=== PATIENT | female | born 2000 | race Caucasian/White ===

== ENCOUNTER 2023-03-29 09:33 | Outpatient (OUT) | payer BC, SELFPAY ==
--- NOTE | 2023-03-29 09:30 | US_ITS ---
[address] [address] Patient Name: CHRISTINE WALKER MRN: [id number] date: 2000 Sex: F Assigned Patient Location: US Current Patient Location: US Accession/Order Number: [id number] Exam Date: 03/29/2023 09:30 Report Date: 03/29/2023 18:11 At the request of: NIHARIKA MENON Procedure: US OB transvaginal EXAMINATION: US OB transvaginal HISTORY: MISSED PERIOD COMPARISON: No relevant comparison available. FINDINGS: Transvaginal images Sibley intrauterine gestation Gestational sac: 4.2 cm, 9 weeks 4 days CRL: 2.67 cm, 9 weeks 3 days Yolk sac: 5.3 mm Heart rate: 170 bpm Cervix: Closed, 4.0 cm The uterus is normal, anteverted, anteflexed The ovaries are normal. Clinical age: 9 weeks 5 days Clinical JAMES: 10/24/2019 fourth Ultrasound age: 9 weeks 3 days Ultrasound JAMES: 10/29/2023 US/US OB transvaginal IMPRESSION: Viable sibley intrauterine gestation measuring 9 weeks 3 days Electronically authenticated by: SONJA ZAFAR Date: 03/29/2023 18:11
== END 2023-03-29 09:34 | disposition home or self-care (01) ==
LOC: US 09:33
PROVIDERS: Visit Provider Obstetrics & Gynecology
DX: Z34.91 Encounter for supervision of normal pregnancy, unspecified, first trimester (principal); Z3A.09 9 weeks gestation of pregnancy; N92.6 Irregular menstruation, unspecified
CPT/HCPCS: 76817

== ENCOUNTER 2023-04-03 13:03 | Outpatient (OUT) | payer BC, SELFPAY ==
[2023-04-03 13:25] LABS: Basophils Percent Auto 0.4 % (0.2-2.0); Eosinophils Absolute Auto 0.3 10^3/uL (0.0-0.7); Eosinophils Percent Auto 3.3 % (0.9-7.0); Hematocrit 38.1 % (36.0-48.0); Hemoglobin 12.9 g/dL (12.0-16.0); Immature Granulocytes Abs Auto 0.05 10^3/uL (0.00-0.03); Immature Granulocytes Pct Auto 0.5 % (0.0-0.5); Lymphocytes Absolute Auto 1.6 10^3/uL (1.2-3.8); Lymphocytes Percent Auto 15.7 % (20.5-60.0); Mean Corpuscular HGB Conc 33.9 g/dL (29.9-35.2); Mean Corpuscular Hemoglobin 30.2 pg (26.7-34.0); Mean Corpuscular Volume 89.2 fL (81.0-99.0); Mean Platelet Volume 9.3 fL (9.5-13.5); Monocytes Absolute Auto 0.6 10^3/uL (0.3-0.8); Monocytes Percent Auto 5.7 % (1.7-12.0); Neutrophils Absolute Auto 7.5 10^3/uL (1.4-6.5); Neutrophils Percent Auto 74.4 % (43.0-75.0); Platelet Count 279 10^3/uL (150-450); Red Blood Count 4.27 10^6/uL (4.20-5.40); Red Cell Distribution Width 12.2 % (11.0-15.0)
[2023-04-03 14:02] LABS: Estimated Average Glucose 103 mg/dL; Glycohemoglobin A1C 5.2 % (4.5-6.2)
[2023-04-03 14:21] LABS: Thyroid Stimulating Hormone 0.883 uIU/mL (0.358-3.740)
[2023-04-04 06:30] LABS: Rubella Antibodies, IgG 2.74 index (Immune >0.99)
[2023-04-04 08:32] LABS: HBsAg Screen Negative (Negative); HCV Ab Non Reactive (Non Reactive); HIV Ab/p24 Ag Screen Non Reactive (Non Reactive)
[2023-04-04 11:09] LABS: Rapid Plasma Reagin, Quant Non Reactive (NonRea<1:1)
== END 2023-04-03 13:04 | disposition home or self-care (01) ==
LOC: LAB 13:04
PROVIDERS: Visit Provider Obstetrics & Gynecology
DX: N91.2 Amenorrhea, unspecified (principal)
CPT/HCPCS: 36415; 83036; 84443; 85025; 86592; 86706; 86762; 86803; 86850; 86900; 86901; 87086; 87389

== ENCOUNTER 2023-04-29 22:02 | Outpatient (REF) | payer BC, SELFPAY ==
[2023-05-03 11:09] LABS: Age Gdln ACOG Testing Note (.); IGP, rfx Aptima HPV ASCU Note (.)
== END 2023-04-29 22:03 | disposition home or self-care (01) ==
LOC: LAB 22:02
PROVIDERS: Visit Provider Obstetrics & Gynecology
DX: Z01.419 Encounter for gynecological examination (general) (routine) without abnormal findings (principal)
CPT/HCPCS: G0145

== ENCOUNTER 2023-06-10 09:05 | Outpatient (OUT) | payer BC, SELFPAY ==
--- NOTE | 2023-06-10 | US_ITS ---
[address] [address] Patient Name: CHRISTINE WALKER MRN: [id number] date: 2000 Sex: F Assigned Patient Location: US Current Patient Location: Accession/Order Number: [id number] Exam Date: 06/10/2023 09:08 Report Date: 06/10/2023 17:36 At the request of: NIHARIKA MENON Procedure: US OB anatomy EXAMINATION: US OB anatomy HISTORY: ANATOMY COMPARISON: No relevant comparison available. TECHNIQUE: Transabdominal sonographic examination was performed for obstetrical and evaluation. FINDINGS: Number: 1 Heart Rate: H.B. /min Amniotic Fluid Volume: Subjectively normal position: Cephalic presentation, longitudinal lie Placental Location: Posterior, grade 0. Placental edge 4.2 cm from the internal os Cervix Length: 3.8 cm , closed Normal anatomy: Lateral ventricles, cerebellum, posterior fossa, orbits, four-chamber heart, diaphragm, stomach, kidneys, abdominal cord insertion, bladder, umbilical arteries, three-vessel cord, spine, extremities Nonvisualization: Nose, lips, RVOT, LVOT BIOMETRY: BPD: 4.6 cm 19 weeks 5 days , 34% HC: 17.3 cm 19 weeks 6 days, 29% AC: 15.7 cm 20 weeks 6 days, 67% FL: 3.2 cm 20 weeks 0 days, 38% EFW:349.7 grams; 12 ounces, 59% FL/AC: 20.6 FL/BPD: 70.6 HC/AC: 1.1 GESTATIONAL AGE: Age by EDC: 20 weeks 1 days Age by current US: 20 weeks 1 days JAMES by current US: 10/27/2023 JAMES by EDC: 10/27/2023 US/US OB anatomy IMPRESSION: Nonvisualization as detailed above Low lying placenta *Reference: [facility] Practice Guideline for the performance of Obstetric Ultrasound Examinations, June 09, 2007. Electronically authenticated by: SONJA ZAFAR Date: 06/10/2023 17:36
--- NOTE | 2023-06-10 09:08 | US_ITS ---
[address] [address] Patient Name: CHRISTINE WALKER MRN: [id number] date: 2000 Sex: F Assigned Patient Location: US Current Patient Location: Accession/Order Number: [id number] Exam Date: 06/10/2023 09:08 Report Date: 06/10/2023 17:36 At the request of: NIHARIKA MENON Procedure: US OB cervical length EXAMINATION: US OB anatomy HISTORY: ANATOMY COMPARISON: No relevant comparison available. TECHNIQUE: Transabdominal sonographic examination was performed for obstetrical and evaluation. FINDINGS: Number: 1 Heart Rate: H.B. /min Amniotic Fluid Volume: Subjectively normal position: Cephalic presentation, longitudinal lie Placental Location: Posterior, grade 0. Placental edge 4.2 cm from the internal os Cervix Length: 3.8 cm , closed Normal anatomy: Lateral ventricles, cerebellum, posterior fossa, orbits, four-chamber heart, diaphragm, stomach, kidneys, abdominal cord insertion, bladder, umbilical arteries, three-vessel cord, spine, extremities Nonvisualization: Nose, lips, RVOT, LVOT BIOMETRY: BPD: 4.6 cm 19 weeks 5 days , 34% HC: 17.3 cm 19 weeks 6 days, 29% AC: 15.7 cm 20 weeks 6 days, 67% FL: 3.2 cm 20 weeks 0 days, 38% EFW:349.7 grams; 12 ounces, 59% FL/AC: 20.6 FL/BPD: 70.6 HC/AC: 1.1 GESTATIONAL AGE: Age by EDC: 20 weeks 1 days Age by current US: 20 weeks 1 days JAMES by current US: 10/27/2023 JAMES by EDC: 10/27/2023 US/US OB cervical length IMPRESSION: Nonvisualization as detailed above Low lying placenta *Reference: [facility] Practice Guideline for the performance of Obstetric Ultrasound Examinations, June 09, 2007. Electronically authenticated by: SONJA ZAFAR Date: 06/10/2023 17:36
== END 2023-06-10 09:06 | disposition home or self-care (01) ==
LOC: US 09:06
PROVIDERS: Visit Provider Obstetrics & Gynecology
DX: O44.42 Low lying placenta NOS or without hemorrhage, second trimester (principal); Z3A.20 20 weeks gestation of pregnancy
CPT/HCPCS: 76805; 76817

== ENCOUNTER 2023-07-08 14:25 | Outpatient (OUT) | payer BC, SELFPAY ==
--- NOTE | 2023-07-08 14:26 | US_ITS ---
[address] [address] Patient Name: CHRISTINE WALKER MRN: [id number] date: 2000 Sex: F Assigned Patient Location: US Current Patient Location: US Accession/Order Number: [id number] Exam Date: 07/08/2023 14:27 Report Date: 07/08/2023 15:36 At the request of: NIHARIKA MENON Procedure: US OB incomplete anatomy EXAM: US OB incomplete anatomy HISTORY: SUVISUALIZED RVOT, LVOT, NOSE, AND LIPS COMPARISON: Ultrasound OB anatomy 07-01 TECHNIQUE: Transabdominal ultrasound FINDINGS: Heart rate: 137 beats per minutes Presentation: Cephalic Anatomy: Four-chamber heart, RVOT, LVOT, hard palate GA: 24 weeks 1 day JAMES: 10/27/2023 US/US OB incomplete anatomy IMPRESSION: 1. Single live intrauterine . 2. Adequate visualization of the four-chamber heart, cardiac outflow tracts, and hard palate. No appreciable abnormality. Electronically authenticated by: ADDI RIOJAS Date: 07/08/2023 15:36
== END 2023-07-08 14:26 | disposition home or self-care (01) ==
LOC: US 14:25
PROVIDERS: Visit Provider Obstetrics & Gynecology
DX: Z36.2 Encounter for other antenatal screening follow-up (principal); Z3A.24 24 weeks gestation of pregnancy
CPT/HCPCS: 76815

== ENCOUNTER 2023-07-27 09:01 | Outpatient (OUT) | payer BC, SELFPAY ==
[2023-07-27 10:14] LABS: Basophils Percent Auto 0.3 % (0.2-2.0); Eosinophils Absolute Auto 0.3 10^3/uL (0.0-0.7); Eosinophils Percent Auto 2.5 % (0.9-7.0); Hematocrit 35.2 % (36.0-48.0); Hemoglobin 11.6 g/dL (12.0-16.0); Immature Granulocytes Abs Auto 0.14 10^3/uL (0.00-0.03); Immature Granulocytes Pct Auto 1.3 % (0.0-0.5); Lymphocytes Absolute Auto 1.5 10^3/uL (1.2-3.8); Lymphocytes Percent Auto 13.4 % (20.5-60.0); Mean Corpuscular Hemoglobin 31.3 pg (26.7-34.0); Mean Corpuscular Volume 94.9 fL (81.0-99.0); Mean Platelet Volume 9.1 fL (9.5-13.5); Monocytes Absolute Auto 0.6 10^3/uL (0.3-0.8); Monocytes Percent Auto 5.8 % (1.7-12.0); Neutrophils Absolute Auto 8.4 10^3/uL (1.4-6.5); Neutrophils Percent Auto 76.7 % (43.0-75.0); Platelet Count 234 10^3/uL (150-450); Red Blood Count 3.71 10^6/uL (4.20-5.40); Red Cell Distribution Width 12.7 % (11.0-15.0)
[2023-07-27 10:22] LABS: Glucose 1 Hour 113 mg/dL
== END 2023-07-27 09:02 | disposition home or self-care (01) ==
LOC: LAB 09:01
PROVIDERS: Obstetrics & Gynecology
DX: Z13.1 Encounter for screening for diabetes mellitus (principal)
CPT/HCPCS: 36415; 82950; 85025

== ENCOUNTER 2023-10-02 09:02 | Outpatient (OUT) | payer BC, SELFPAY ==
--- NOTE | 2023-10-02 09:04 | US_ITS ---
[address] [address] Patient Name: CHRISTINE WALKER MRN: [id number] date: 2000 Sex: F Assigned [facility] Accession/Order Number: [id number] Exam Date: 10/02/2023 09:04 Report Date: 10/02/2023 10:02 At the request of: NIHARIKA MENON Procedure: US OB growth EXAMINATION: US OB growth HISTORY: LGA COMPARISON: No relevant comparison available. FINDINGS: Heart Rate: 133.0 bpm Amniotic Fluid Volume: 11.2 cm Number: 1.0 Position: Cephalic presentation, longitudinal lie Maximum Vertical Pocket: 3.6 cm cm 0.0 cm cm 3.8 cm cm 3.8 cm cm BIOMETRY: BPD: 9.2 cm cm; 37 weeks 3 days; 85% HC: 32.5 cmcm; 36 weeks 5 days , 29% AC: 33.2 cm cm; 37 weeks 1 days, 80% FL: 7.1 cm cm; 36 weeks 3 days; 47.0 % % EFW: 3079.0 grams, 6 lbs. 13 oz., 60% FL/AC: 21.4 FL/BPD: 77.1 HC/AC: 1.0 GESTATIONAL AGE: Age by EDC: 36 weeks 3 days JAMES by EDC: 10/27/2023 Age by US: 37 weeks 0 days JAMES by US: 10/23/2023 Suboptimal head measurements secondary to low position of the fetus US/US OB growth IMPRESSION: Normal interval growth Electronically authenticated by: SONJA ZAFAR Date: 10/02/2023 10:02
--- OUTSIDE RECORDS SUMMARY | 2023-10-02 09:07 | XMS_ITS | CCD ---
Author Name Unknown Address [address] [place] [address] Organization [facility] Care Team Providers Care Charger Name Role Phone Jordan Anne MD Primary Care Provider RHEA HICKS Referring Unavailable JORDAN ANNE Primary Care Unavailable EDWIN ROSARIO Referring Unavailable JORDAN ANNE Primary Care Unavailable CARLOS ENRIQUE AVERY Attending Unavailable CARLOS ENRIQUE AVERY Attending Unavailable NIHARIKA MENON Attending Unavailable LYNSEYNIHARIKA NJ Attending Unavailable CARLOS ENRIQUE AVERY Attending Unavailable Problems Problem Classification Problem Date Documented Da te Episodic/Chronic Menstrual disorders (1 source) Amenorrhea, unspecified; Translations: [Amenorrhea, unspecified] Onset: 02-19-2023 Chronic Results Test Name Value Interpretation Reference Range Facil ity HCG, Quanton 02-19-2023 HCG, Quant 410 mIU/mL High <5 [facility] Comment on above: Result Comment: Non-preg premeno <=5 Postmeno <=8 Male <=3 If HCG results do not concur with clinical observations, additional testing to confirm results is recommended. Performed By: #### B HCG #### [facility] [address] [place] [address] Microbiology Lab Assistant: Hermilo Rasmussen MD Cytologyon 12-11-2022 Cytology (NOTE) INTERPRETATION Cervical material, (ThinPrep vial, Imaging-assisted review): Specimen Adequacy: Satisfactory for evaluation. - Endocervical/transform ation zone component present. Descriptive Diagnosis: Negative for intraepithelial lesion or malignancy. 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 High risk HPV DNA testing is requested if the diagnosis is abnormal GYNECOLOGIC CYTOLOGY REPORT Patient Name: CHRISTINE WALKER [facility] Rec: [id number] Path Number: [id number] [employer] [facility] [address] [place] [address] [phone] [facility] Comment on above: Performed By: #### P PPVP #### [facility] [address] [place] [address] [id number] Microbiology Lab Assistant: Jim Merida MD Encounters Encounter Date Encounter Type Care Provider Facility Start: 09-24-2023 End: 09-24-2023 ambulatory NIHARIKA LYNSEY Not Available Start: 09-10-2023 End: 09-10-2023 ambulatory CARLOS ENRIQUE GENA Not Available Start: 08-28-2023 End: 08-28-2023 ambulatory CARLOS ENRIQUE GENA Not Available Start: 08-14-2023 End: 08-14-2023 ambulatory NIHARIKA LYNSEY Not Available Start: 07-23-2023 End: 07-23-2023 ambulatory CARLOS ENRIQUE GENA Not Available Start: 02-19-2023 End: 02-20-2023 ambulatory [facility] Start: 12-11-2022 End: 12-12-2022 ambulatory EDWIN [facility] Start: 12-11-2022 Encounter for gynecological examination (general) (routine) without abnormal findings [facility] Start: 12-11-2022 End: 12-11-2022 Patient encounter procedure Jordan Anne MD Work Phone: [facility] Start: 12-11-2022 End: 12-11-2022 Subsequent hospital visit by physician Jordan Anne MD Work Phone: [facility] Comment on above: Encounter for well w aniyah exam with routine gynecological exam Plan of Treatment Date Care Activity Detail Author Start: 04-09-2023 Influenza vaccination [facility] vacc ine ([facility]ed[email or web address] Start: 2019 Screening for malign ant neoplasm of cervix Pap [email or web address] Start: 2017 DTaP/Tdap/Td vaccine (1 - Tdap) DTaP/Tdap/Td vaccine (1 - Tdap) [facility] Start: 2016 Hepatitis C screening Hepatitis C sc reen [facility] Start: 2014 Screening for Chlamy blanca trachomatis Chlamydia/GC screen [facility] Start: 2013 HIV screening HIV screen [facility] Start: 2010 Depression Screen Depression Screen [facility] Start: 2009 HPV vaccine (1 - 2-d ose series) HPV vaccine (1 - 2-dose series) [facility] Start: 1999 Varicella vaccine (1 of 2 - 2-dose childhood series) Varicella vaccine (1 of 2 - 2-dose childhood series) [facility] Start: 04-28-1999 COVID-19 Vaccine (#1) COVID-19 Vacci ne (#1) [facility] End: 12-11-2022 Cytopathology procedure, preparation of smear, genital source [facility] Routine Encounter for well woman exam with routine gynecological exam 1 Occurrences starting 12/11/2022 until 12/11/2022 [facility] Work Phone: Comment on above: 1 Occurrences starti ng 12/11/2022 until 12/11/2022 Payers Date Payer Category Payer Unknown [id number] 2000 Unknown [id number] [id number] 2000 Unknown [id number] 2.16.8 [id number] 2000 Unknown [id number] 2.16.84 [id number] 1998 Unknown [id number] 1998 Unknown [id number] [id number] 1998 Unknown [id number] 1998 Unknown [id number] Social History Date Type Detail Facility Start: 12-11-2022 Tobacco smoking stat [facility] Never smoked tobacco [employer] Phone: Start: 12-11-2022 Tobacco use and exposure Smokeless tobacco non-user [employer] Phone: Start: 12-11-2022 Alcohol intake Current drinke r of alcohol (finding) [employer] Phone: Start: 12-11-2022 History SDOH Physica l Activity DPW 5 [employer] Phone: Start: 12-11-2022 History SDOH Physica l Activity MPS 4 [employer] Phone: Start: 12-11-2022 History SDOH IPV Fear 2 [facility] [employer] Phone: Start: 12-11-2022 History SDOH Food Worry 1 [employer] Phone: Start: 12-11-2022 Alcohol Comment social [employer] Phone: Start: 2000 Sex Assigned At Not on file B ON [employer] Phone: Evaluation note Note Date & Type Note Facility Evaluation note Diagnosis Encounter for well woman exam with routine gynecological exam documented in this encounter [employer] Phone: Summary Purpose Family History No Family History Records FoundNo Family History Records Found Advance Directives No Advanced Directives Records FoundNo Advanced Directives Records Found Additional Source Comments Care Teams (unrecognized sec tion and content) Charger Relationship Specialty Start Date End Date Jordan Anne MD [address] [place] [address] PCP - General Internal Medicine 11/19/22 INFORMATION SOURCE (unrecogn ized section and content) DATE CREATED AUTHOR 02/20/2023 Emma mariscal DATE CREATED AUTHOR AUTHOR'S ZACHARY MOSQUERA 09/25/2023 [facility] dical Specialists [facility] FOR RECORDS PERTAINING TO PATIENTS WHO ARE OR HAVE BEEN ENROLLED IN A CHEMICAL DEPENDENCY/SUBSTANCEABUSE PROGRAM, SOME INFORMATION MAY BE OMITTED. This clinical summary was aggregated from multiple sources. Caution should be exercised in using it in the provision of clinical care. This summary normalizes information from multiple sources, and as a consequence, information in this document may materially change the coding, format and clinical context of patient data. In addition, data may be omitted in some cases. CLINICAL DECISIONS SHOULD BE BASED ON THE PRIMARY CLINICAL RECORDS. [employer] [facility]. provides no warranty or guarantee of the accuracy or completeness of information in this document.
== END 2023-10-02 09:03 | disposition home or self-care (01) ==
LOC: NOMS 09:03
PROVIDERS: Visit Provider Obstetrics & Gynecology
DX: Z34.93 Encounter for supervision of normal pregnancy, unspecified, third trimester (principal); O36.63X0 Maternal care for excessive fetal growth, third trimester, not applicable or unspecified; Z3A.36 36 weeks gestation of pregnancy
CPT/HCPCS: 76816; 87081

== ENCOUNTER 2023-10-02 20:14 | Outpatient (REF) | payer BC, SELFPAY ==
--- OUTSIDE RECORDS SUMMARY | 2023-10-02 20:17 | XMS_ITS | CCD ---
Author Name Unknown Address [address] [place] [address] Organization [facility] Care Team Providers Care Professional Housing Consultant Name Role Phone Jordan Anne MD Primary [...] 02-19-2023 HCG, Quant 410 mIU/mL High <5 [facility] Comment on above: Result Comment: Non-preg premeno <=5 Postmeno <=8 Male <=3 If HCG results do not concur with clinical observations, additional testing to confirm results is recommended. Performed By: #### B HCG #### [facility] [address] [place] [address] Tablet Making Machine Operator Helper: Hermilo Rasmussen MD Cytologyon 12-11-2022 Cytology (NOTE) INTERPRETATION Cervical material, (ThinPrep vial, Imaging-assisted review): Specimen Adequacy: Satisfactory for evaluation. - Endocervical/transform ation zone component present. Descriptive Diagnosis: Negative for intraepithelial lesion or malignancy. 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 High risk HPV DNA testing is requested if the diagnosis is abnormal GYNECOLOGIC CYTOLOGY REPORT Patient Name: CHRISTINE WALKER [facility] Rec: [id number] Path Number: [id number] [employer] [facility] [address] [place] [address] [phone] [facility] Comment on above: Performed By: #### P PPVP #### [facility] [address] [place] [address] [id number] Tablet Making Machine Operator Helper: Jim Merida MD Encounters Encounter Date Encounter [...] Not Available Start: 02-19-2023 End: 02-20-2023 ambulatory [facility] Start: 12-11-2022 End: 12-12-2022 ambulatory ED[facility] Start: 12-11-2022 Encounter for gynecological examination (general) (routine) without abnormal findings [facility] Start: 12-11-2022 End: 12-11-2022 Patient encounter procedure Jordan Anne MD Work Phone: [facility] Start: 12-11-2022 End: 12-11-2022 Subsequent hospital visit by physician Jordan Anne MD Work Phone: [facility] Comment on above: Encounter for well w aniyah exam with routine gynecological exam Plan of Treatment Date Care Activity Detail Author Start: 04-09-2023 Influenza vaccination [facility]: 2019 Screening for malign ant neoplasm of cervix Pap [facility] Start: 2017 DTaP/Tdap/Td vaccine (1 - Tdap) DTaP/Tdap/Td vaccine (1 - Tdap) [facility] Start: 2016 Hepatitis C screening Hepatitis C sc reen [facility] Start: 2014 Screening for Chlamy blanca trachomatis Chlamydia/GC screen [facility] Start: 2013 HIV screening HIV screen [facility] Start: 2010 Depression Screen Depression Screen [facility] Start: 2009 HPV vaccine (1 - 2-d ose series) HPV vaccine (1 - 2-dose series) [facility] Start: 1999 Varicella vaccine (1 of 2 - 2-dose childhood series) Varicella vaccine (1 of 2 - 2-dose childhood series) [facility] Start: 04-28-1999 COVID-19 Vaccine (#1) COVID-19 Vacci ne (#1) [facility] End: 12-11-2022 Cytopathology procedure, preparation of smear, genital source [facility] Routine Encounter for well woman exam with routine gynecological exam 1 Occurrences starting 12/11/2022 until 12/11/2022 [facility] Work Phone: Comment on above: 1 Occurrences starti ng 12/11/2022 until 12/11/2022 Payers Date Payer Category Payer Unknown [id number]. [id number] 2000 Unknown [id number] 2.16.8 [id number] 2000 Unknown [id number] 2.16.8 [id number] 2000 Unknown [id number] 2.16.84 [id number] 2000 Unknown [id number] 2.16.840 .[id number] 2000 Unknown [id number] 2.16.840 .[id number] 1998 Unknown [id number] 2.16.840 [id number] 1998 Unknown [id number]. [id number] Social History Date Type Detail Facility Start: 12-11-2022 Tobacco smoking stat [facility] Never smoked tobacco [employer] Phone: Start: 12-11-2022 Tobacco use and exposure Smokeless tobacco non-user [employer] Phone: Start: 12-11-2022 Alcohol intake Current drinke r of alcohol (finding) [employer] Phone: Start: 12-11-2022 History SDOH Physica l Activity DPW 5 [employer] Phone: Start: 12-11-2022 History SDOH Physica l Activity MPS 4 [employer] Phone: Start: 12-11-2022 History SDOH IPV Fear 2 B [facility] [facility] Phone: Start: 12-11-2022 History SDOH Food Worry 1 [employer] Phone: Start: 12-11-2022 Alcohol Comment social [employer] Phone: Start: 2000 Sex Assigned At Not on file B [facility] Phone: Evaluation note Note Date & Type Note Facility Evaluation note Diagnosis Encounter for well woman exam with routine gynecological exam documented in this encounter [employer] Phone: Summary Purpose Family History No Family History Records FoundNo Family History Records Found Advance Directives No Advanced Directives Records FoundNo Advanced Directives Records Found Additional Source Comments Care Teams (unrecognized sec tion and content) Professional Housing Consultant Relationship Specialty Start Date End Date Jordan Anne MD [address] [place] [address] PCP - General Internal Medicine 11/19/22 INFORMATION SOURCE (unrecogn ized section and content) DATE CREATED AUTHOR 02/20/2023 Emma mariscal DATE CREATED AUTHOR AUTHOR'S ZACHARY MOSQUERA 09/25/2023 [facility] dical Specialists [facility] FOR RECORDS PERTAINING TO PATIENTS WHO ARE [...] BE BASED ON THE PRIMARY CLINICAL RECORDS. [employer] [facility]. provides no warranty or guarantee of the accuracy or completeness of information in this document.
== END 2023-10-02 20:15 | disposition home or self-care (01) ==
LOC: LAB 20:14
PROVIDERS: Visit Provider Obstetrics & Gynecology
DX: Z34.93 Encounter for supervision of normal pregnancy, unspecified, third trimester (principal)
CPT/HCPCS: 87081

== ENCOUNTER 2023-10-26 20:44 | Inpatient (IN) | payer BC, SELFPAY ==
--- OUTSIDE RECORDS SUMMARY | 2023-10-26 20:49 | XMS_ITS | CCD ---
Author Name Unknown Address [address] [place] [address] [address] [place] [id number] Organization [facility] Care Team Providers Care Agent Broker Name Role Phone Jordan Lomax MD Primary Care Provider RHEA HICKS Referring Unavailable JORDAN LOMAX Primary Care Unavailable EDWIN ROSAROI Referring Unavailable JORDAN LOMAX Primary Care Unavailable Jordan Lomax MD Primary Care Provider CARLOS ENRIQUE AVERY Attending Unavailable CARLOS ENRIQUE AVERY Attending Unavailable RAYNE, NIHARIKA Attending Unavailable RAYNE, NIHARIKA Attending Unavailable RAYNE, NIHARIKA Attending Unavailable GENACARLOS ENRIQUE CHI Attending Unavailable RAYNE, NIHARIKA Attending Unavailable RAYNE, NIHARIKA Attending Unavailable RAYNE, NIHARIKA Attending Unavailable Medications Current Medications Medication Drug Class(es) Dates Sig (Normalized) Sig (Original) MV-Min-Fe Fum-FA-DHA ( 1 PO) (4 sources) MV-Min- Fe Fum-FA-DHA ( 1 PO) Take by mouth. 0 Active Problems Problem Classification Problem Date Documented Da te Episodic/Chronic Menstrual disorders (1 source) Amenorrhea, unspecified; Translations: [Amenorrhea, unspecified] Onset: 02-19-2023 Chronic Other and delivery including normal (4 sources) Third trimester ; Translations: [Encounter for supervision of normal , unspecified, third trimester] 10-11-2023 Episodic Results Test Name Value Interpretation Reference Range Facility Urinalysis macro (dipstick) panel (U)Ordered By: Anyi Ramirez on 10-23-2023 Bilirubin, UA Negative Negative - 4(70) +++ mg/dL [facility] Blood, UA Negative Negative - 50 Sandor/mcL [facility] Clarity, UA Clear [facility] Color, UA Yellow [facility] Glucose, UA Negative Negative - 1999(110) ++++ mg/dL [facility] Interpretation and review of laboratory results Abnormal [facility] Ketones, UA Negative Negative - 160(16) ++++ mg/dL [facility] Leukocytes, UA Negative Negative - 500+++ Davdi/mcL [facility] Nitrite, UA Negative Negative - Positive [facility] pH, UA 7.0 5 - 9 [facility] Protein, UA Positive Negative - 1999(20) ++++ mg/dL [facility] Healthcare Spec Grav, UA 1.025 1 - 1.03 [facility] Urobilinogen, UA 2.0 0.2 - 12 mg/dL [facility] Urinalysis macro (dipstick) panel (U)Ordered By: Anyi Ramirez on 10-16-2023 Bilirubin, UA Negative Negative - 4(70) +++ mg/dL [facility] Blood, UA Negative Negative - 50 Sandor/mcL [facility] Clarity, UA Clear [facility] Healthpr re Color, UA Yellow [facility]car [facility] Glucose, UA Negative Negative - 1999(110) ++++ mg/dL [facility] Interpretation and review of laboratory results Normal [facility] Ketones, UA Negative Negative - 160(16) ++++ mg/dL [facility] Leukocytes, UA Negative Negative - 500+++ David/mcL [facility] Nitrite, UA Negative Negative - Positive [facility] pH, UA 6.0 5 - 9 [facility] Protein, UA Negative Negative - 1999(20) ++++ mg/dL [facility] Spec Grav, UA 1.025 1 - 1.03 [facility] Urobilinogen, UA 0.2 0.2 - 12 mg/dL [facility] HCG, Quanton 02-19-2023 HCG, Quant 410 mIU/mL High <5 [facility] Comment on above: Result Comment: Non-preg premeno <=5 Postmeno <=8 Male <=3 If HCG results do not concur with clinical observations, additional testing to confirm results is recommended. Performed By: #### B HCG #### [facility] [address] [place] [address] Planned Giving Officer: Hermilo Rasmussen MD Cytologyon 04-04-2023 Cytology (NOTE) INTERPRETATION Cervical material, (ThinPrep vial, Imaging-assisted review): Specimen Adequacy: Satisfactory for evaluation. - Endocervical/transfor mation zone component present. Descriptive Diagnosis: Negative for intraepithelial lesion or malignancy. 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 High risk HPV DNA testing is requested if the diagnosis is abnormal GYNECOLOGIC CYTOLOGY REPORT Patient Name: RIENA OSWALD [facility] Rec: [id number] Path Number: [id number] youwho [facility] ANATOMIC PATHOLOGY [address] [place] [phone] [facility] Comment on above: Performed By: #### P PPVP #### [facility] [address] [place] [address] [id number] Planned Giving Officer: Jim Merida MD Vital Signs Date Time Vital Sign Value Performing Clinician Faci lity 10-23-2023 14:58-0500 Body mass index (BMI) [Ratio] 26.73 kg/m2 Niharika Rayne DO Work Phone: [facility] 10-23-2023 14:58-0500 Body weight 79.74 kg Niharika Aryne DO Work Phone: [facility] 10-23-2023 14:58-0500 Diastolic blood pressure 60 mm[Hg] Niharika Rayne DO Work Phone: [facility] 10-23-2023 14:58-0500 Systolic blood pressure 104 mm[Hg] Niharika Rayne DO Work Phone: [facility] 10-16-2023 15:21-0500 Body mass index (BMI) [Ratio] 26.02 kg/m2 Niharika Rayne DO Work Phone: [facility] 10-16-2023 15:21-0500 Body weight 77.62 kg Niharika Rayne DO Work Phone: [facility] 10-16-2023 15:21-0500 Diastolic blood pressure 68 mm[Hg] Niharika Rayne DO Work Phone: [facility] Healthcare 10-16-2023 15:21-0500 Systolic blood pressure 104 mm[Hg] Niharika Rayne DO Work Phone: [facility] Healthcare Encounters Encounter Date Encounter Type Care Provider Facility Start: 10-23-2023 End: 10-23-2023 ambulatory NIHARIKA RAYNE Not Available Start: 10-23-2023 End: 10-23-2023 flow sheet Niharika Rayne DO Work Phone: [facility] Comment on above: Third trimester preg melba Start: 10-16-2023 End: 10-16-2023 ambulatory NIHARIKA RAYNE Not Available Start: 10-16-2023 End: 10-16-2023 flow sheet Niharika Rayne DO Work Phone: [facility] Comment on above: Third trimester preg melba Start: 10-09-2023 End: 10-09-2023 ambulatory NIHARIKA RAYNE Not Available Start: 10-02-2023 End: 10-02-2023 ambulatory NIHARIKA RAYNE Not Available Start: 09-24-2023 End: 09-24-2023 ambulatory NIHARIKA RAYNE Not Available Start: 09-10-2023 End: 09-10-2023 ambulatory CARLOS ENRIQUE GENA Not Available Start: 08-28-2023 End: 08-28-2023 ambulatory CARLOS ENRIQUE GENA Not Available Start: 08-14-2023 End: 08-14-2023 ambulatory NIHARIKA RAYNE Not Available Start: 07-23-2023 End: 07-23-2023 ambulatory CARLOS ENRIQUE GENA Not Available Start: 02-19-2023 End: 02-20-2023 ambulatory [facility] Start: 12-11-2022 End: 12-12-2022 ambulatory EDWIN Esquivel [facility] Start: 12-11-2022 Encounter for gynecological examination (general) (routine) without abnormal findings [facility] Start: 12-11-2022 End: 12-11-2022 Patient encounter procedure Jordan Lomax MD Work Phone: [facility] Start: 12-11-2022 End: 12-11-2022 Subsequent hospital visit by physician Jordan Lomax MD Work Phone: [facility] Comment on above: Encounter for well w aniyah exam with routine gynecological exam Procedures Date Procedure Procedure Detail Performing Clinician Start: 10-23-2023 Urnls dip stick/tabl et rgnt non-auto w/o micrscp Niharika Rayne DO Work Phone: Start: 10-16-2023 Urnls dip stick/tabl et rgnt non-auto w/o micrscp Niharika Rayne DO Work Phone: Plan of Treatment Date Care Activity Detail Author Start: 10-28-2023 End: 10-28-2023 Patient encounter procedure 10/28/2023 9:00 AM EST Routine [facility] [address] [place] [id number] Niharika Mclain, DO [address] [place] [address] [facility] Start: 10-23-2023 End: 10-23-2023 Patient encounter procedure 10/23/2023 3:00 PM EST Routine [facility] [address] [facility] [place] [id number] Niharika Mclain, DO [address] [place] [address] Third trimester [facility] Comment on above: Third trimester preg melba Start: 04-09-2023 Influenza vaccination Flu vacc ine (Season Ended) [facility] Start: 2019 Screening for malign ant neoplasm of cervix Pap smear [facility] Start: 2017 DTaP/Tdap/Td vaccine (1 - Tdap) DTaP/Tdap/Td vaccine (1 - Tdap) [facility] Start: 2016 Hepatitis C screening Hepatitis C sc reen [facility] Start: 2014 Screening for Chlamy blanca trachomatis Chlamydia/GC screen [facility] Start: 2013 HIV screening HIV screen [facility] Start: 2010 Depression Screen Depression Screen [facility] Start: 2009 HPV vaccine (1 - 2-d ose series) HPV vaccine (1 - 2-dose series) [facility] Start: 1999 Varicella vaccine (1 of 2 - 2-dose childhood series) Varicella vaccine (1 of 2 - 2-dose childhood series) [facility] Start: 04-28-1999 COVID-19 Vaccine (#1) COVID-19 Vacci ne (#1) [facility] End: 12-11-2022 Cytopathology procedure, preparation of smear, genital source [facility] Routine Encounter for well woman exam with routine gynecological exam 1 Occurrences starting 12/11/2022 until 12/11/2022 [facility] Work Phone: Comment on above: 1 Occurrences starti ng 12/11/2022 until 12/11/2022 Payers Date Payer Category Payer Unknown [id number] 2015 Unknown BCBS BCBS xxxxxx [id number] 2015-Present [phone] [address] [place] [address] [id number] 1998 Unknown [id number] 1998 Unknown [id number] 1998 Unknown [id number] 1998 Unknown [id number] 1998 Unknown [id number] 1998 Unknown [id number] 1998 Unknown [id number] 1998 Unknown [id number] [id number] 1998 Unknown [id number] [id number] 1998 Unknown [id number] 1998 Unknown [id number] Social History Date Type Detail Facility Start: 12-11-2022 Tobacco smoking status NYIS Never smoked tobacco [facility] Phone: Start: 12-11-2022 Tobacco use and exposure Smokeless tobacco non-user [facility] Phone: Start: 12-11-2022 Alcohol intake Current drinke r of alcohol (finding) [facility] Phone: Start: 12-11-2022 History SDOH Physica l Activity DPW 5 [facility] Phone: Start: 12-11-2022 History SDOH Physica l Activity MPS 4 [facility] Phone: Start: 12-11-2022 History SDOH IPV Fear 2 [facility] Phone: Start: 12-11-2022 History SDOH Food Worry 1 [facility] Phone: Start: 12-11-2022 Alcohol Comment social [facility] [employer] Phone: Start: 1998 Sex Assigned At Not on file [facility] Phone: Tobacco smoking status NHIS Tobacco smoking consumption unknown [facility] Start: 02-03-2023 [facility] Gender identity Not on file [facility] History of Present illness Narrative 10-23-2023 Mey Beebe, DEB - 10/23/2023 3:00 PM EST Note Date & Type Note Facility 10-23-2023 History of Presen t illness Narrative Reason for Appointment: Patient ID: Reina Oswald is a 22 y.o. female who presents for Routine Visit Patient presents today for Return OB appointment. Current Medications: has a current medication list which includes the following prescription(s): mv-min-fe fum-fa-dha. Medical History: Active Ambulatory Problems Diagnosis Date Noted No Active Ambulatory Problems Resolved Ambulatory Problems Diagnosis Date Noted No Resolved Ambulatory Problems No Additional Past Medical History No family history on file. Social History Tobacco Use Smoking status: Not on file Smokeless tobacco: Not on file Substance Use Topics Alcohol use: Not on file Drug use: Not on file No past surgical history on file. No Known Allergies Review of Systems: Review of Systems Constitutional: Negative. HENT: Negative. Eyes: Negative. Respiratory: Negative. Cardiovascular: Negative. Gastrointestinal: Negative. Genitourinary: Negative. Musculoskeletal: Negative. Skin: Negative. Neurological: Negative. All other systems reviewed and are negative. Hematological: Negative. Endocrine: Negative. Allergic/Immunologic: Negative. Objective Physical Exam Constitutional: Appearance: Normal appearance. She is well-developed. Genitourinary: Vulva normal. Cardiovascular: Rate and Rhythm: Normal rate and regular rhythm. Pulmonary: Effort: Pulmonary effort is normal. Breath sounds: Normal breath sounds. Abdominal: General: Bowel sounds are normal. There is no distension. Palpations: Abdomen is soft. Tenderness: There is no abdominal tenderness. There is no guarding or rebound. Musculoskeletal: General: No swelling. Normal range of motion. Right lower leg: No edema. Left lower leg: No edema. Neurological: Mental Status: She is alert and oriented to person, place, and time. Skin: General: Skin is warm and dry. Psychiatric: Mood and Affect: Mood normal. Behavior: Behavior normal. Vitals and nursing note reviewed. Exam conducted with a paper colorer present. Vitals: Estimated body mass index is 26.73 kg/m as calculated from the following: Height as of 03/29/23: 5' 8 . Weight as of this encounter: 175 lb 12.8 oz. BP: 104/60 Patient's last menstrual period was 01/20/2023 (approximate). Assessment/Plan Encounter Diagnosis Name Primary? Third trimester Patient presents today for a routine obstetrics appointment. Patient is currently 39w3d . Patient states she is doing well but has complaints of being tired due to current . Patient has verbalizes frequent movement. labor precautions was discussed/given and patient was instructed to perform kick counts three times a day. Follow Up: Patient is to return to office in 1 week for routine OB appointment. Documented by eMy Beebe LPN on behalf of: Niharika Mclain DO documented in this encounter [facility] History of Present illness Narrative 10-16-2023 Mey Beebe LPN - 10/16/2023 3:00 PM EST Note Date & Type Note Facility 10-16-2023 History of Presen t illness Narrative Reason for Appointment: Patient ID: Reina Oswald is a 22 y.o. female who presents for Routine Visit Patient presents today for Return OB appointment. Current Medications: has a current medication list which includes the following prescription(s): mv-min-fe fum-fa-dha. Medical History: Active Ambulatory Problems Diagnosis Date Noted No Active Ambulatory Problems Resolved Ambulatory Problems Diagnosis Date Noted No Resolved Ambulatory Problems No Additional Past Medical History No family history on file. Social History Tobacco Use Smoking status: Not on file Smokeless tobacco: Not on file Substance Use Topics Alcohol use: Not on file Drug use: Not on file History reviewed. No pertinent surgical history. No Known Allergies Review of Systems: Review of Systems Constitutional: Negative. HENT: Negative. Eyes: Negative. Respiratory: Negative. Cardiovascular: Negative. Gastrointestinal: Negative. Genitourinary: Negative. Musculoskeletal: Negative. Skin: Negative. Neurological: Negative. All other systems reviewed and are negative. Hematological: Negative. Endocrine: Negative. Allergic/Immunologic: Negative. Objective Physical Exam Constitutional: Appearance: Normal appearance. She is well-developed. Genitourinary: Vulva normal. Cardiovascular: Rate and Rhythm: Normal rate and regular rhythm. Pulmonary: Effort: Pulmonary effort is normal. Breath sounds: Normal breath sounds. Abdominal: General: Bowel sounds are normal. There is no distension. Palpations: Abdomen is soft. Tenderness: There is no abdominal tenderness. There is no guarding or rebound. Musculoskeletal: General: No swelling. Normal range of motion. Right lower leg: No edema. Left lower leg: No edema. Neurological: Mental Status: She is alert and oriented to person, place, and time. Skin: General: Skin is warm and dry. Psychiatric: Mood and Affect: Mood normal. Behavior: Behavior normal. Vitals and nursing note reviewed. Exam conducted with a paper colorer present. Vitals: Estimated body mass index is 26.02 kg/m as calculated from the following: Height as of 03/29/23: 5' 8 . Weight as of this encounter: 171 lb 1.9 oz. BP: 104/68 Patient's last menstrual period was 01/20/2023 (approximate). Assessment/Plan Encounter Diagnosis Name Primary? Third trimester Patient presents today for a routine obstetrics appointment. Patient is currently 38w3d . Patient states she is doing well but has complaints of being tired due to current . Patient has verbalizes frequent movement. labor precautions was discussed/given and patient was instructed to perform kick counts three times a day. Follow Up: Patient is to return to office in 1 week for routine OB appointment. Documented by Mey Beebe LPN on behalf of: Niharika Mclain DO documented in this encounter [facility] Evaluation note Note Date & Type Note Facility Evaluation note Diagnosis Encounter for well woman exam with routine gynecological exam documented in this encounter [facility] Phone: Evaluation note Note Date & Type Note Facility Evaluation note Diagnosis Third trimester state, incidental Third trimester state, incidental documented in this encounter [facility] Evaluation note Note Date & Type Note Facility Evaluation note Diagnosis Third trimester state, incidental documented in this encounter [facility] Summary Purpose Family History No Family History Records FoundNo Family History Records Found Advance Directives No Advanced Directives Records FoundNo Advanced Directives Records Found Additional Source Comments Care Teams (unrecognized sec tion and content) Agent Broker Relationship Specialty Start Date End Date Jordan Lomax MD [address] [place] [id number] PCP - General Internal Medicine 11/19/22 Agent Broker Relationship Specialty Start Date End Date Jordan Lomax MD [address] [place] [id number] PCP - General Internal Medicine 03/06/23 Agent Broker Relationship Specialty Start Date End Date Jordan Lomax MD [address] [place] [id number] PCP - General Internal Medicine 03/06/23 INFORMATION SOURCE (unrecogn ized section and content) DATE CREATED AUTHOR 02/20/2023 Emma mariscal DATE CREATED AUTHOR AUTHOR'S ORGANAPOLLO ATION 10/25/2023 [facility] EPIC Reason for Visit (unrecogniz ed section and content) Reason Comments Routine Visit FOR RECORDS PERTAINING TO PATIENTS WHO ARE [...] BE BASED ON THE PRIMARY CLINICAL RECORDS. [employer] provides no warranty or guarantee of the accuracy or completeness of information in this document.
[2023-10-26 20:59] VITALS: BP 117/76; PULSE 79; TEMP 36.3
[2023-10-26 21:40] LABS: Bilirubin Urine NEGATIVE (NEGATIVE); Blood Urine MODERATE (NEGATIVE); Clarity Urine CLEAR (CLEAR); Color Urine LT. YELLOW (YELLOW); Glucose Urine UA NEGATIVE (NEGATIVE); Ketones Urine NEGATIVE (NEGATIVE); Leukocyte Esterase Urine NEGATIVE (NEGATIVE); Nitrite Urine NEGATIVE (NEGATIVE); Protein Urine NEGATIVE (NEG/TRACE); Urobilinogen Urine 0.2 EU/dL (0.2-1.0)
[2023-10-26 21:45] LABS: Amnisure POSITIVE (NEGATIVE)
[2023-10-26 21:45] LABS: Urine Microscopic Indicated YES
[2023-10-26 22:31] LABS: WBC Urine NONE SEEN #/HPF (NONE SEEN)
[2023-10-26 22:32] LABS: Bacteria Urine NONE SEEN #/HPF (NONE SEEN); Mucus Urine NONE SEEN (NONE SEEN); Squamous Epithelial Cell Urine RARE #/LPF (NONE/RARE)
[2023-10-26 22:33] LABS: Cast Seen? NONE SEEN #/LPF (NONE SEEN); Crystals Seen? None Seen #/HPF (None Seen)
[2023-10-26 22:46] LABS: Amphetamine Screen Urine NEGATIVE (NEGATIVE); Barbiturates Screen Urine NEGATIVE (NEGATIVE); Benzodiazepines Screen Urine NEGATIVE (NEGATIVE); Buprenorphine Screen Urine NEGATIVE (NEGATIVE); Cannabinoid Screen Urine NEGATIVE (NEGATIVE); Cocaine Screen Urine NEGATIVE (NEGATIVE); Methadone Screen Urine NEGATIVE (NEGATIVE); Methamphetamines Screen Urine NEGATIVE (NEGATIVE); Opiate Screen Urine NEGATIVE (NEGATIVE); Oxycodone Screen Urine NEGATIVE (NEGATIVE); Phencyclidine Screen Urine NEGATIVE (NEGATIVE); Tricyclic Antidepressant Urine NEGATIVE (NEGATIVE)
[2023-10-26 22:50] VITALS: TEMP 36.3
[2023-10-26 22:51] VITALS: BP 128/83; PULSE 77
--- NOTE | 2023-10-26 23:42 | PC.NURSE ---
[id number] Lab notified this RN via TC, amniosure is positive.
[2023-10-27] VITALS (18 sets, daily range): BP systolic 99–130; BP diastolic 55–96; PULSE 49–103; RESP 14–18; TEMP 36.1–36.7
[2023-10-27] MEDS: 0.9 % SODIUM CHLORIDE 1,000 ML 125 ML IV (03:17)
--- NOTE | 2023-10-27 04:14 | PM.OBPRCVD ---
Procedure Intrapartal events: None Induction method: none Delivery augmentation: rupture of membranes Delivery monitor: external FHT and external uterine Route of delivery: Episiotomy Description: right mediolateral L&D Laceration Description: perineal - 3rd degree Delivery repair: Vicryl Estimated blood loss (mL): 250 Anesthesia type: None Disposition: floor Delivery date: 10/27/23 Gender: female presentation: vertex Placental delivery description: Spontaneous cord description: 3 Vessels
[2023-10-27] MEDS: GLYCERIN/WITCH HAZEL PADS 1 PAD TOPICAL (04:50)
[2023-10-27] MEDS: IBUPROFEN 600 MG TABLET PO ×4 (04:52→22:41)
[2023-10-27] MEDS: LIDOCAINE HCL 1% 200 MG/20 ML MDV INJ (04:53)
--- NOTE | 2023-10-27 06:38 | PC.NURSE ---
Pt believes she ruptured on 10/26/23 @ 1830 approx. Pt reports there was only a small leak. Amniosure positive on admission. AROM forebag of yap per Dr. Mclain @ [id number] for moderate amount of brown tinged fluid
[2023-10-27 08:31] LABS: Basophils Percent Auto 0.3 % (0.2-2.0); Eosinophils Absolute Auto 0.2 10^3/uL (0.0-0.7); Eosinophils Percent Auto 1.2 % (0.9-7.0); Hematocrit 41.9 % (36.0-48.0); Hemoglobin 13.4 g/dL (12.0-16.0); Immature Granulocytes Abs Auto 0.06 10^3/uL (0.00-0.03); Immature Granulocytes Pct Auto 0.4 % (0.0-0.5); Lymphocytes Percent Auto 13.1 % (20.5-60.0); Mean Corpuscular Hemoglobin 30.8 pg (26.7-34.0); Mean Corpuscular Volume 96.3 fL (81.0-99.0); Mean Platelet Volume 10.5 fL (9.5-13.5); Monocytes Absolute Auto 0.9 10^3/uL (0.3-0.8); Neutrophils Absolute Auto 12.3 10^3/uL (1.4-6.5); Platelet Count 286 10^3/uL (150-450); Red Blood Count 4.35 10^6/uL (4.20-5.40); Red Cell Distribution Width 13.1 % (11.0-15.0); White Blood Count 15.6 10^3/uL (4.0-11.0)
[2023-10-27] MEDS: ACETAMINOPHEN 325 MG TABLET 650 MG PO ×2 (14:03→20:03)
--- NOTE | 2023-10-28 05:43 | PM.OBPN ---
OB - PN: Subj Subjective Patient comments: no complaints and pain well controlled [place] status: doing well Exam Constitutional Vital Signs, click to edit/add: Last Vital Signs Temp 97.9 F 10/27/23 23:30 Pulse 63 10/27/23 23:30 Resp 18 10/27/23 23:30 BP 100/61 10/27/23 23:30 O2 Del Method Room Air 10/27/23 23:30 Documenting provider has reviewed patient's vital signs: yes Common normals: no apparent distress Respiratory Common normals: clear to auscultation bilaterally Cardio Common normals: regular rate and regular rhythm GI Common normals: Normal to inspection, nondistended, normoactive bowel sounds present Extremity Common normals: no clubbing, cyanosis or edema and no calf tenderness Results Labs Labs: Short CBC 10/26/23 Range/Units 23:10 WBC 15.6 H (4.0-11.0) 10^3/uL Hgb 13.4 (12.0-16.0) g/dL Hct 41.9 (36.0-48.0) % Plt Count 286 (150-450) 10^3/uL OB - PN: A/P Plan - Vaginal Delivery day: 1 Plan: routine care, discharge home and follow up 6 weeks Time Spent with Patient Time: Total time spent is greater than 50% in coordination of care (as documented) at patient's floor/unit and/or counseling patient: Total time spent with greater than 50% in coordination of care (as documented) at patient's floor/unit and/or counseling patient: less than 15 minutes
[2023-10-28 06:17] LABS: Basophils Absolute Auto 0.1 10^3/uL (0.0-0.1); Basophils Percent Auto 0.3 % (0.2-2.0); Eosinophils Absolute Auto 0.2 10^3/uL (0.0-0.7); Eosinophils Percent Auto 1.5 % (0.9-7.0); Hematocrit 33.4 % (36.0-48.0); Hemoglobin 10.7 g/dL (12.0-16.0); Immature Granulocytes Abs Auto 0.09 10^3/uL (0.00-0.03); Immature Granulocytes Pct Auto 0.6 % (0.0-0.5); Lymphocytes Absolute Auto 3.4 10^3/uL (1.2-3.8); Lymphocytes Percent Auto 21.7 % (20.5-60.0); Mean Corpuscular Hemoglobin 30.6 pg (26.7-34.0); Mean Corpuscular Volume 95.4 fL (81.0-99.0); Monocytes Percent Auto 6.4 % (1.7-12.0); Neutrophils Absolute Auto 10.9 10^3/uL (1.4-6.5); Neutrophils Percent Auto 69.5 % (43.0-75.0); Platelet Count 237 10^3/uL (150-450); Red Cell Distribution Width 12.9 % (11.0-15.0); White Blood Count 15.7 10^3/uL (4.0-11.0)
[2023-10-28 09:00] VITALS: BP 104/65; PULSE 62; RESP 16; TEMP 35.8
[2023-10-28 09:02] VITALS: BP 104/65; PULSE 62; TEMP 35.8
[2023-10-28] MEDS: IBUPROFEN 600 MG TABLET PO (09:03)
[2023-10-28] MEDS: DOCUSATE SODIUM 100 MG CAPSULE PO (09:03)
== END 2023-10-28 12:55 | disposition home or self-care (01) | DRG 768 ==
PROVIDERS: Admitting Provider Obstetrics & Gynecology; Visit Provider Obstetrics & Gynecology
DX: O70.20 Third degree perineal laceration during delivery, unspecified (principal); Z37.0 Single live birth; Z3A.39 39 weeks gestation of pregnancy
CPT/HCPCS: 36415; 59050; 59410; 80307; 81001; 84112; 85025; 86850; 86900; 86901; 96374; J2590

== ENCOUNTER 2023-10-30 08:40 | Outpatient (OUT) | payer BC, SELFPAY ==
--- OUTSIDE RECORDS SUMMARY | 2023-10-30 09:03 | XMS_ITS | CCD ---
Author Name Unknown Address [address] [place] [address] [address] [place] [id number] Organization [facility] Care Team Providers Care Sewer Tapper Name Role Phone Jordan Lomax MD Primary Care Provider RHEA HICKS Referring Unavailable JORDAN LOMAX Primary Care Unavailable EDWIN ROSARIO Referring Unavailable JORDAN LOMAX Primary Care Unavailable [...] UA Negative Negative - 1999(110) ++++ mg/dL [facility] Interpretation and review of laboratory results Abnormal [facility] Ketones, UA Negative Negative - 160(16) ++++ mg/dL [facility] Leukocytes, UA Negative Negative - 500+++ David/mcL [facility] Nitrite, UA Negative Negative - Positive [facility] pH, UA 7.0 5 - 9 [facility] Protein, UA Positive Negative - 1999(20) ++++ mg/dL [facility] Spec Grav, UA 1.025 1 - 1.03 [facility] Urobilinogen, UA 2.0 0.2 - 12 mg/dL [facility] Urinalysis macro (dipstick) panel (U)Ordered By: Anyi Ramirez on 10-16-2023 Bilirubin, UA Negative Negative - 4(70) +++ mg/dL [facility] Blood, UA Negative Negative - 50 Sandor/mcL [facility] Clarity, UA Clear [facility] re Color, UA Yellow [facility] Glucose, UA Negative Negative - 1999(110) ++++ mg/dL [facility] Interpretation and review of laboratory results Normal [facility] Ketones, UA Negative Negative - 160(16) ++++ mg/dL [facility] Leukocytes, UA Negative Negative - 500+++ David/mcL [facility] Nitrite, UA Negative Negative - Positive [facility] pH, UA 6.0 5 - 9 [facility] Protein, UA Negative Negative - 1999(20) ++++ mg/dL [facility] Spec Grav, UA 1.025 1 - 1.03 [facility] Urobilinogen, UA 0.2 0.2 - 12 mg/dL [facility] HCG, Quanton 02-19-2023 HCG, Quant 410 mIU/mL High <5 [facility] Comment on above: Result Comment: Non-preg premeno <=5 Postmeno <=8 Male <=3 If HCG results do not concur with clinical observations, additional testing to confirm results is recommended. Performed By: #### B HCG #### [facility] [address] [place] [address] Veteran Appeals Reviewer: Hermilo Rasmussen MD Cytologyon 04-04-2023 Cytology (NOTE) INTERPRETATION Cervical material, (ThinPrep vial, Imaging-assisted review): Specimen Adequacy: Satisfactory for evaluation. - Endocervical/transfor mation zone component present. Descriptive Diagnosis: Negative for intraepithelial lesion or malignancy. 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 High risk HPV DNA testing is requested if the diagnosis is abnormal GYNECOLOGIC CYTOLOGY REPORT Patient Name: REINA OSWALD [facility] Rec: [id number] Path Number: [id number] [facility] ANATOMIC PATHOLOGY [address] [place] [phone] [facility] Comment on above: Performed By: #### P PPVP #### [employer] [facility] [address] [id number] [employer] Appeals Reviewer: Jim Merida MD Vital Signs Date Time Vital Sign Value Performing Clinician Faci lity 10-23-2023 14:58-0500 Body mass index (BMI) [Ratio] 26.73 kg/m2 Niharika Rayne DO Work Phone: [facility] 10-23-2023 14:58-0500 Body weight 79.74 kg Niharika Rayne DO Work Phone: [facility] 10-23-2023 14:58-0500 Diastolic blood pressure 60 mm[Hg] Niharika Rayne DO Work Phone: [facility] 10-23-2023 14:58-0500 Systolic blood pressure 104 mm[Hg] Niharika Rayne DO Work Phone: [facility] 10-16-2023 15:21-0500 Body mass index (BMI) [Ratio] 26.02 kg/m2 Niharika Rayne DO Work Phone: [facility] 10-16-2023 15:21-0500 Body weight 77.62 kg Niharika Rayne DO Work Phone: [facility] 10-16-2023 15:21-0500 Diastolic blood pressure 68 mm[Hg] Niharika Rayne DO Work Phone: [facility] 10-16-2023 15:21-0500 Systolic blood pressure 104 mm[Hg] Niharika Rayne DO Work Phone: [facility] Encounters Encounter Date Encounter Type Care Provider Facility Start: 10-23-2023 End: 10-23-2023 ambulatory NIHARIKA RAYNE Not Available Start: 10-23-2023 End: 10-23-2023 flow sheet Niharika Rayne DO Work Phone: [facility] Comment on above: Third trimester preg melba Start: 10-16-2023 End: 10-16-2023 ambulatory NIHARIKA RAYNE Not Available Start: 10-16-2023 End: 10-16-2023 flow sheet Niharika Rayne DO Work Phone: [facility] Comment on above: Third [...] Not Available Start: 02-19-2023 End: 02-20-2023 ambulatory [facility] Start: 12-11-2022 End: 12-12-2022 ambulatory EDWIN Esquivel [facility] Start: 12-11-2022 Encounter for gynecological examination (general) (routine) without abnormal findings [facility] Start: 12-11-2022 End: 12-11-2022 Patient [...] [facility] [address] [place] [phone] Niharika Mclain, DO [address] [place] [address] [facility] Start: 10-23-2023 End: 10-23-2023 Patient encounter procedure 10/23/2023 3:00 PM EST Routine [facility] [address] [facility] [phone] Niharika Mclain, DO [address] [place] [address] Third trimester [facility] Comment on above: Third trimester preg melba Start: 04-09-2023 Influenza vaccination Flu vacc ine (Season Ended) [facility] Start: 2019 Screening for malign ant neoplasm of cervix Pap smear [facility] Start: 2017 DTaP/Tdap/Td vaccine (1 - Tdap) DTaP/Tdap/Td vaccine (1 - Tdap) [facility] Start: 2016 Hepatitis C screening Hepatitis C sc reen [facility] Start: 2014 Screening for Chlamy blanca trachomatis Chlamydia/GC screen [facility] Start: 2013 HIV screening HIV screen [facility] Start: 2010 Depression Screen Depression Screen [facility] Start: 2009 HPV vaccine (1 - 2-d ose series) HPV vaccine (1 - 2-dose series) [facility] Start: 1999 Varicella vaccine (1 of 2 - 2-dose childhood series) Varicella vaccine (1 of 2 - 2-dose childhood series) [facility] Start: 04-28-1999 COVID-19 Vaccine (#1) COVID-19 Vacci ne (#1) [facility] End: 12-11-2022 Cytopathology procedure, preparation of smear, genital source [facility] Routine Encounter for well woman exam with routine gynecological exam 1 Occurrences starting 12/11/2022 until 12/11/2022 [facility] Work Phone: Comment on above: 1 Occurrences starti ng 12/11/2022 until 12/11/2022 Payers Date Payer Category Payer Unknown [id number] 2015 Unknown BCBS BCBS xxxxxx [id number] 2015-Present [phone] [address] [place] [address] [id number] 1998 Unknown [id number] [id number] 1998 Unknown [id number] [id number] 1998 Unknown [id number] 2.16.840.1.545096.3.579.2.9 1998 Unknown [id number] 2.16.840.1.208429.3.579.2.9 1998 Unknown [id number] 2.16.840.1.963390.3.579.2.9 1998 Unknown [id number] 2.16.840.1.041074.3.579.2.9 1998 Unknown [id number] 2.16.840.1.718196.3.579.2.9 1998 Unknown [id number] 2.16.840.1.627295.3.579.2.9 1998 Unknown [id number] 2.16.840.1.358126.3.579.2.9 1998 Unknown [id number] [id number] 1998 Unknown [id number] [id number] Social History Date Type Detail Facility Start: 12-11-2022 Tobacco smoking status FL[facility] Never smoked tobacco [facility] Phone: Start: 12-11-2022 Tobacco use and exposure Smokeless tobacco non-user [facility] Phone: Start: 12-11-2022 Alcohol intake Current drinke r of alcohol (finding) [facility] Phone: Start: 12-11-2022 History SDOH Physica l Activity DPW 5 [facility] Phone: Start: 12-11-2022 History SDOH Physica l Activity MPS 4 [facility] Phone: Start: 12-11-2022 History SDOH IPV Fear 2 [facility] Phone: Start: 12-11-2022 History SDOH Food Worry 1 [facility] Phone: Start: 12-11-2022 Alcohol Comment social [facility] [employer] Phone: Start: 1998 Sex Assigned At Not on file [facility] Phone: Tobacco smoking status NHIS Tobacco smoking [...] nursing note reviewed. Exam conducted with a research attorney present. Vitals: Estimated body mass index is [...] nursing note reviewed. Exam conducted with a research attorney present. Vitals: Estimated body mass index is [...] routine gynecological exam documented in this encounter [facility] Phone: Evaluation note Note Date & Type [...] Care Teams (unrecognized sec tion and content) Sewer Tapper Relationship Specialty Start Date End Date Jordan Lomax MD [address] [place] [address] PCP - General Internal Medicine 11/19/22 Sewer Tapper Relationship Specialty Start Date End Date Jordan Lomax MD [address] [place] [address] PCP - General Internal Medicine 03/06/23 Sewer Tapper Relationship Specialty Start Date End Date Jordan Lomax MD [address] [place] [address] PCP - General Internal Medicine 03/06/23 INFORMATION SOURCE (unrecogn ized section and content) DATE CREATED AUTHOR 02/20/2023 Emma mariscal DATE CREATED AUTHOR AUTHOR'S ORGANAPOLLO ATION 10/25/2023 [facility] dical Specialists EPIC Reason for Visit (unrecogniz [...] BE BASED ON THE PRIMARY CLINICAL RECORDS. [facility]. provides no warranty or guarantee of the accuracy or completeness of information in this document.
--- NOTE | 2023-10-30 16:32 | PC.NURSE ---
Bowen Huang and 3 day old [place] arrive for follow up visit. Parents state has settled well at home. Nurses every 2 hours during the day and every 3 hours at night. Latching did become more difficult today as milk coming in and breast firm and tender. Reina states has nipples that do not pull out too much and now right side is hard to latch onto. Reina assessed and VSS and Assessment WNL. Using Motrin for perineal discomfort as well as Dermoplast and tucks/witch flori pads. Slight ankle edema noted with pitting. Encouraged to increase PO fluids and left sided rest. Rosana examined today by PCP Dr Hood. Assessment now WNL and VSS. Weight same as discharge weight. Parents report 4-5 wets and 5 green to yellow stools in last 24 hours. Mom shown to use laid back nursing for easier latching during engorgement and baby responded well with 20 min feeding on right breast. Parents pleased with information and verbalized understanding. Aware to call for questions or concerns and of [facility] group for support. involved and very supportive with Reina. Family leaves ambulatory without concerns.
[2023-10-30 16:34] VITALS: BP 108/67; PULSE 71; RESP 16; TEMP 36.7; O2SAT 97
== END 2023-10-30 15:30 | disposition home or self-care (01) ==
LOC: FBCO 08:54
PROVIDERS: Visit Provider Obstetrics & Gynecology
DX: Z39.2 Encounter for routine postpartum follow-up (principal)

== ENCOUNTER 2025-05-04 15:21 | Outpatient (OUT) | payer BC, SELFPAY ==
[2025-05-04 16:00] LABS: Anion Gap 12.7; Blood Urea Nitrogen 21.0 mg/dL (7.0-18.0); Calcium 9.0 mg/dL (8.5-10.1); Carbon Dioxide 27.6 mmol/L (21.0-32.0); Chloride 103 mmol/L (98-107); Estimated GFR (African America >60 (>=60 mL/min/1.73m^2); Estimated GFR (Non-African Ame >60 (>=60 mL/min/1.73m^2); Glucose 96 mg/dL (74-106); Potassium 4.3 mmol/L (3.5-5.1); Sodium 139 mmol/L (136-145)
--- OUTSIDE RECORDS SUMMARY | 2025-05-04 16:39 | XMS_ITS | CCD ---
Author Organization [facility] Care Team Providers Care Public Transportation Inspector Name Role Phone Jordan Anne MD Primary Care Provider RHEA HICKS Referring Unavailable JORDAN ANNE Primary Care Unavailable EDWIN ROSARIO Referring Unavailable JORDAN ANNE Primary Care Unavailable Jordan Anne MD Primary Care Provider CARLOS ENRIQUE AVERY Attending Unavailable CARLOS ENRIQUE AVERY Attending Unavailable RAYNE, NIHARIKA Attending Unavailable RAYNE, NIHARIKA Attending Unavailable RAYNE, NIHARIKA Attending Unavailable RAYNE, NIHARIKA Attending Unavailable RAYNE, NIHARIKA Attending Unavailable CARLOS ENRIQUE AVERY Attending Unavailable RAYNE, NIHARIKA Attending Unavailable CARLOS ENIRQUE AVERY Attending Unavailable Medications Current Medications Medication Drug [...] [facility] Glucose, UA Negative Negative - 2000(110) ++++ mg/dL [facility] Interpretation and review of laboratory results Abnormal [facility] Ketones, UA Negative Negative - 160(16) ++++ mg/dL [facility] Leukocytes, UA Negative Negative - 500+++ David/mcL [facility] Nitrite, UA Negative Negative - Positive [facility] pH, UA 7.0 5 - 9 [facility] Protein, UA Positive Negative - 1999(20) ++++ mg/dL [facility] Spec Grav, UA 1.025 1 - 1.03 [facility] Urobilinogen, UA 2.0 0.2 - 12 [facility]/dL [facility] Urinalysis macro (dipstick) panel (U)Ordered By: Anyi Ramirez on 10-16-2023 Bilirubin, UA Negative Negative - 4(70) +++ mg/dL [facility] Blood, UA Negative Negative - 50 Sandor/mcL [facility] Clarity, UA Clear [facility] Color, UA Yellow [facility] Glucose, UA Negative Negative - 1999(110) ++++ mg/dL [facility] Interpretation and review of laboratory results Normal [facility] Ketones, UA Negative Negative - 160(16) ++++ mg/dL [facility] Leukocytes, UA Negative Negative - 500+++ David/mcL [facility] Nitrite, UA Negative Negative - Positive [facility] pH, UA 6.0 5 - 9 [facility] Health[facility] e Protein, UA Negative Negative - 1999(20) ++++ mg/dL [facility] Spec Grav, UA 1.025 1 - 1.03 [facility] Urobilinogen, UA 0.2 0.2 - 12 mg/dL [facility] HCG, Quanton 02-19-2023 HCG, Quant 410 mIU/mL High <5 [facility] Comment on above: Result Comment: Non-preg premeno <=5 Postmeno <=8 Male <=3 If HCG results do not concur with clinical observations, additional testing to confirm results is recommended. Performed By: #### B HCG #### [facility] [address] [place] [address] Career Development Facilitator: Hermilo Rasmussen MD Cytologyon 12-11-2022 Cytology (NOTE) INTERPRETATION Cervical material, (ThinPrep vial, Imaging-assisted review): Specimen Adequacy: Satisfactory for evaluation. - Endocervical/transfor mation zone component present. Descriptive Diagnosis: Negative for intraepithelial lesion or malignancy. 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 High risk HPV DNA testing is requested if the diagnosis is abnormal GYNECOLOGIC CYTOLOGY REPORT Patient Name: REINA OSWALD [facility] Rec: [id number] Path Number: [id number] [facility] ANATOMIC PATHOLOGY [address] [place] [phone] [facility] Comment on above: Performed By: #### P PPVP #### [facility] [id number] Career Development Facilitator: Jim Merida MD Vital Signs Date Time Vital Sign Value Performing Clinician Faci lit 10-23-2023 14:58-0500 Body mass index (BMI) [Ratio] 26.73 kg/m2 Niharika Rayne DO Work Phone: [facility] 10-23-2023 14:58-0500 Body weight 79.74 kg Niharika Rayne DO Work Phone: [facility] 10-23-2023 14:58-0500 Diastolic blood pressure 60 mm[Hg] Niharika Rayne DO Work Phone: [facility] 10-23-2023 14:58-0500 Systolic blood pressure 104 mm[Hg] Niharika Rayne DO Work Phone: [facility] 10-16-2023 15:21-0500 Body mass index (BMI) [Ratio] 26.02 kg/m2 Niharika Rayne DO Work Phone: [facility] 10-16-2023 15:21-0500 Body weight 77.62 kg Niharika Rayne DO Work Phone: [facility] 10-16-2023 15:21-0500 Diastolic blood pressure 68 mm[Hg] Niharika Rayne DO Work Phone: [facility] 10-16-2023 15:21-0500 Systolic blood pressure 104 mm[Hg] Niharika Rayne DO Work Phone: [facility] Healthcare Encounters Encounter Date Encounter Type Care Provider Facility Start: 12-09-2023 End: 12-09-2023 ambulatory CARLOS ENRIQUE GENA Not Available Start: 10-23-2023 End: 10-23-2023 ambulatory NIHARIKA RAYNE Not Available Start: 10-23-2023 End: 10-23-2023 flow sheet Niharika Rayne DO Work Phone: [facility] Comment on above: Third trimester preg melba Start: 10-16-2023 End: 10-16-2023 ambulatory NIHARIKA RAYNE Not Available Start: 10-16-2023 End: 10-16-2023 flow sheet Niharika Rayne DO Work Phone: [facility] Comment on above: Third trimester [...] Not Available Start: 02-19-2023 End: 02-20-2023 ambulatory [facility] Start: 12-11-2022 End: 12-12-2022 ambulatory EDWIN Esquivel [facility] Start: 12-11-2022 Encounter for gynecological examination (general) (routine) without abnormal findings [facility] Start: 12-11-2022 End: 12-11-2022 Patient encounter procedure Jordan Anne MD Work Phone: [email or web address] Start: 12-11-2022 [...] [facility] [address] [place] [phone] Niharika Mclain, DO [address] [place] [address] [facility] Start: 10-23-2023 End: 10-23-2023 Patient encounter procedure 10/23/2023 3:00 PM EST Routine [facility] [address] [facility] [address] Niharika Mclain, DO [address] [place] [address] Third trimester [facility] Comment on above: Third trimester preg melba Start: 04-09-2023 Influenza vaccination Flu vacc ine (Season Ended) [facility] Start: 2019 Screening for malign ant neoplasm of cervix Pap smear [facility] Start: 2017 DTaP/Tdap/Td vaccine (1 - Tdap) DTaP/Tdap/Td vaccine (1 - Tdap) [facility] Start: 2016 Hepatitis C screening Hepatitis C sc reen [facility] Start: 2014 Screening for Chlamy blanca trachomatis Chlamydia/GC screen [facility] Start: 2013 HIV screening HIV screen [facility] Start: 2010 Depression Screen Depression Screen [facility] Start: 2009 HPV vaccine (1 - 2-d ose series) HPV vaccine (1 - 2-dose series) [facility] Start: 1999 Varicella vaccine (1 of 2 - 2-dose childhood series) Varicella vaccine (1 of 2 - 2-dose childhood series) [facility] Start: 04-28-1999 COVID-19 Vaccine (#1) COVID-19 Vacci ne (#1) [facility] End: 12-11-2022 Cytopathology procedure, preparation of smear, genital source [facility] Routine Encounter for well woman exam with routine gynecological exam 1 Occurrences starting 12/11/2022 until 12/11/2022 [facility] Work Phone: Comment on above: 1 Occurrences starti ng 12/11/2022 until 12/11/2022 Payers Date Payer Category Payer Unknown [id number] 2015 Unknown BCBS BCBS xxxxxx [id number] 2015-Present [phone] [address] [place] [address] [id number] 1998 Unknown [id number] [id number] 1998 Unknown [id number] [id number] 1998 Unknown [id number] 2.16.840.1.834147.3.579.2.9 1998 Unknown [id number] 2.16.840.1.120512.3.579.2.9 1998 Unknown [id number] 2.16.840.1.050073.3.579.2.9 1998 Unknown [id number] 2.16.840.1.136512.3.579.2.9 1998 Unknown [id number] 2.16.840.1.001140.3.579.2.9 1998 Unknown [id number] 2.16.840.1.903810.3.579.2.9 1998 Unknown [id number] 2.16.840.1.783973.3.579.2.9 1998 Unknown [id number] 2.16.840.1.669214.3.579.2.9 1998 Unknown [id number] 2.16.840.1.912008.3.579.2.9 1998 Unknown [id number] [id number] Social History Date Type Detail Facility Start: 12-11-2022 Tobacco smoking status [facility] Never smoked tobacco [facility] Phone: Start: 12-11-2022 Tobacco use and exposure Smokeless tobacco non-user [employer] Phone: Start: 12-11-2022 Alcohol intake Current drinke r of alcohol (finding) [facility] Phone: Start: 12-11-2022 History SDOH Physica l Activity DPW 5 [facility] Phone: Start: 12-11-2022 History SDOH Physica l Activity MPS 4 [facility] Phone: Start: 12-11-2022 History SDOH IPV Fear 2 [facility] [employer] Phone: Start: 12-11-2022 History SDOH Food Worry 1 [facility] [employer] Phone: Start: 12-11-2022 Alcohol Comment social [facility] [employer] Phone: Start: 1998 Sex Assigned At Not on file [facility] [employer] Phone: Tobacco smoking status NHIS Tobacco smoking consumption unknown [facility] Start: 02-03-2023 [facility] Gender identity Not on file [facility] History of Present illness Narrative 10-23-2023 Mey Beebe, INDUSTRIAL REGISTERED NURSE - 10/23/2023 3:00 PM EST Note Date [...] nursing note reviewed. Exam conducted with a speech communication professor present. Vitals: Estimated body mass index is [...] nursing note reviewed. Exam conducted with a speech communication professor present. Vitals: Estimated body mass index is [...] routine gynecological exam documented in this encounter [employer] Phone: Evaluation note Note Date & Type [...] Care Teams (unrecognized sec tion and content) Public Transportation Inspector Relationship Specialty Start Date End Date Jordan Anne MD [address] [place] [id number] PCP - General Internal Medicine 11/19/22 Public Transportation Inspector Relationship Specialty Start Date End Date Jordan Anne MD [address] [place] [id number] PCP - General Internal Medicine 03/06/23 Public Transportation Inspector Relationship Specialty Start Date End Date Jordan Anne MD [address] [place] [address] PCP - General Internal Medicine 03/06/23 INFORMATION SOURCE (unrecogn ized section and content) DATE CREATED AUTHOR 02/20/2023 Emma mariscal DATE CREATED AUTHOR AUTHOR'S ORGANIZ ATION 12/09/2023 [facility] dical Specialists EPIC Reason for Visit [...] BE BASED ON THE PRIMARY CLINICAL RECORDS. [facility] [employer] [facility]. provides no warranty or guarantee of the accuracy or completeness of information in this document.
== END 2025-05-04 15:22 | disposition home or self-care (01) ==
LOC: LAB 15:22
PROVIDERS: PCP Family Medicine; Visit Provider Family Medicine
DX: R79.9 Abnormal finding of blood chemistry, unspecified (principal)
CPT/HCPCS: 36415; 80048

== ENCOUNTER 2025-07-22 16:02 | Outpatient (OUT) | payer OTHER, SELFPAY ==
--- OUTSIDE RECORDS SUMMARY | 2025-07-15 09:40 | XMS_ITS | Encounter Summary ---
Author Organization [facility] Address [address] [place] [address] Care Team Providers Care Abrasive Grinder Name Role Phone Jordan Lomax MD Primary Care Provider [phone] Reason for Visit * ReasonCommentsRoutine Visit Encounter Details DateTypeDepartmentCare Team (Latest Contact Info)Humdgpednnz49/06/2025 9:40 AM ESTRoutine [facility] [address] [address] Mehdi Mclain DO [address] [place] [address] First trimester ([facility]); 10 weeks gestation of ([facility]) Social History Tobacco UseTypesPacks/DayYears UsedDateSmoking Tobacco: Never Assessed Estimated Date of PtbgilmnXvvazcrdYod48/30/2026ased on last menstrual period of 05/01/2025Sex and Gender InformationValueDate RecordedSex Assigned at BirthNot on fileLegal XjtElufiq31/28/2023 2:17 PM EDTGender IdentityNot on fileSexual OrientationNot on filedocumented as of this encounter Last Filed Vital Signs Vital SignReadingTime TakenCommentsBlood Xrgyfjuo211/7407/15/2025 9:45 AM EST Pulse--Temperature--Respiratory Rate--Oxygen Saturation--Inhaled Oxygen Concentration--Pnlnrn19 kg (141 lb)07/15/2025 9:45 AM ESTHeight--Body Mass Index 21.4407 11:04 AM EDTdocumented in this encounter Progress Notes * Preeti Spitler, ATOMIC FUEL ASSEMBLER - 07/15/2025 9:40 AM EST Reason for Appointment: Patient ID: Reina Oswald is a 24 y.o. female who presents for Routine Visit Patient presents today for Return OB appointment.. MEDICATIONS Current Outpatient Medications Medication Instructions MV-Min-Fe Fum-FA-DHA ( 1 PO) Oral ALLERGIES No Known Allergies PROBLEMS Active Ambulatory Problems Diagnosis Date Noted No Active Ambulatory Problems Resolved Ambulatory Problems Diagnosis Date Noted No Resolved Ambulatory Problems No Additional Past Medical History HISTORY PAST MEDICAL HISTORY SOCIAL HISTORY No past medical history on file. Social History Tobacco Use Smoking status: Not on file Smokeless tobacco: Not on file Substance Use Topics Alcohol use: Not on file Drug use: Not on file FAMILY HISTORY No family history on file. SURGICAL HISTORY No past surgical history on file. REVIEW OF SYSTEMS Review of Systems: Review of Systems Constitutional: Negative. HENT: Negative. Eyes: Negative. Respiratory: Negative. Cardiovascular: Negative. Gastrointestinal: Negative. Genitourinary: Negative. Musculoskeletal: Negative. Skin: Negative. Neurological: Negative. All other systems reviewed and are negative. Hematological: Negative. Endocrine: Negative. Allergic/Immunologic: Negative. OBJECTIVE Objective: Physical Exam Constitutional: Appearance: Normal appearance. She is well-developed. Cardiovascular: Rate and Rhythm: Normal rate and [...] nursing note reviewed. Exam conducted with a golf club facer present. Vitals: Estimated body mass index is 21.44 kg/m?? as calculated from the following: Height as of 03/29/23: 5' 8 . Weight as of this encounter: 141 lb. BP: 110/74 Patient's last menstrual period was 05/01/2025. Assessment/Plan ICD-10-CM 1. First trimester ([facility]) Z34.91 POCT urinalysis dipstick manually resulted 2. 10 weeks gestation of ([facility]) Z3A.10 New OB: Patient presents today for 1st time obstetrics appointment with provider. Patient is currently 10w5d . Patients history has been reviewed in great detail including any potential risks. Patient stated she currently has no complaints. Expectations throughout regarding labs, ultrasounds, and appointments have been discussed with the patient in detail. It was reiterated that the patient is to drink 6-8 glasses of water a day, eat 6 small meals a day, do not consume raw or undercooked meat, and stay away from [facility]. Patient has been consulted regarding any further do's and don'tsof . Patient voiced understanding and all questions and concerns were answered. Discussed recent symptoms of fever, heart rate and not feeling well. Patient voiced that now she isjust tired when she gets home. Orders Placed This Encounter Procedures POCT urinalysis dipstick manually resulted Follow Up: Patient is to return in 4 weeks for routine OB appointment. Documented by Preeti Mcdonough LPN on behalf of: Mehdi Mclain DO documented in this encounter Plan of Treatment DateTypeDepartmentCare Team (Latest Contact Info)Koyvshmeufq66/19/2025 2:40 PM ESTRoutine [facility] [address] [phone] Mehdi Mclain DO [address] [place] [address] documented as of this encounter Procedures Procedure NamePriorityDate/TimeAssociated DiagnosisCommentsPOCT URINALYSIS MEOKEIBUCwidppi29/06/2025 9:51 AM EST First trimester ([facility]) documented in this encounter Results * (ABNORMAL) POCT urinalysis dipstick manually resulted (07/15/2025 9:51 AM EST)ComponentValueRef RangeTest MethodAnalysis TimePerformed AtPathologist SignatureColor, PamellaClarity, UAClearGlucose, UANegativeNegative - 1999(110) ++++ mg/dLBilirubin, UANegativeNegative - 4(70) +++ mg/dLKetones, UA NegativeNegative - 160(16) ++++ mg/dLSpec Grav, UA1.0301 - 1.03Blood, UA NegativeNegative - 50 Sandor/mcLpH, UA6.05 - 9Protein, UAPositiveNegative - 2000(20) ++++ mg/dLComment:TraceUrobilinogen, UA0.20.2 - 12 mg/dLLeukocytes, UAPositiveNegative - 500+++ David/mcLComment:1+Nitrite, UANegativeNegative - PositiveSpecimen (Source)Anatomical Location / LateralityCollection Method / VolumeCollection TimeReceived SmteYvtbk29/06/2025 9:51 AM EST Narrative Authorizing ProviderResult TypeResult StatusCorey Rayne DOPOINT OF CARE TEST ENTER/EDIT ORDERABLESFinal Result documented in this encounter Visit Diagnoses Diagnosis First trimester ([facility]) state, incidental 10 weeks gestation of ([facility]) documented in this encounter Care Teams Team MemberRelationshipSpecialtyStart DateEnd Date Jordan Lomax MD [address] [place] [address] PCP - GeneralInternal Medicine03/06/23documented as of this encounter
--- OUTSIDE RECORDS SUMMARY | 2025-07-17 19:08 | XMS_ITS | Continuity of Care Document ---
Author Organization [facility] Address [address] [place] [address] Phone Care Team Providers Care Data Developer Name Role Phone Joce Louis MD Primary Care Provider Dulce Leigh APRN Attending Provider Care Teams Visit Care Team Team Status: Inactive Member Role/Relationship Status Dates Joce Louis MD Primary Care Provider Active Start: July 17, 2025 End: July 17, 2025Kiki Cerda ProviderActiveStart: July 17, 2025 End: July 17, 2025 Patient Care Team Team Status: Inactive Member Role/Relationship Status Dates Dulce Leigh APRN Attending Provider Active Start: July 17, 2025 End: July 17, 2025 Chief Complaint and Reason for Visit Chief Complaint Admit Date Poss uti July 17, 2025 1 1:06am Reason for Visit Admit Date Acute UTI July 17, 2025 1 1:06am Allergies, Adverse Reactions, Alerts Allergen Type Severity Reaction Last Updated Verified Status No Known Allergies Allergy Unknown July 17, 2025 11:15amYesActive Social History Smoking Status Status Start Date End Date Date of Observa tion Never smoked tobacco (finding) July 17, 2025 11:17am Observation Status Observation Response Date of Response Legal Sex Female (finding) Sex Assigned At BirthFemaleFebruary 2000 Problems Active Problems Problem Diagnosis/Recorded Date Onset Date Stat us Corneal abrasion January 22, 2025 3:00pm Unknown Ac tive 11 weeks gestation of July 17, 2025 11: 16am Unknown Active Acute UTI July 17, 2025 11:55am Unknown A ctive Medications Medication Status Dose Units Route Directions Qty Days Refills S tart Date Stop Date End Date Reason(s) Instructions Adherence Polymyxin B Sulf-Trimethoprim 10,000 unit- 1 mg/mL drops Discontinued 1 DROPS OPHTHALMIC Every three hours 10 7 0 January 21, 2025 11:00pm July 17, 2025 11:15amdo not exceed 6 doses in a 24 hr periodCephalexin 500 mg uxfuaolXjtere831RBNDMfgqe times zijjw5190BwlpyvqgJuly 17, 2025 12:00amUnknown Procedures Procedure Date Performed Status Urine Culture July 17, 2025 active Relevant Diagnostic Tests and/or Laboratory Data Laboratory Results Test Collection Date/Time Result Date/Time Result Interpretation Reference Range Result Comment Performing Site Urine Color July 17, 2025 11:27am July 17, 2025 11:28am Paleyellow Urine AppearanceJuly 17, 2025 11:27amNovember 2024 11:28amclearUrine Glucose (UA)July 17, 2025 11:27amNovember 2024 11:28amNegativeUrine BilirubinNov2024 11:27amNovemb2024 11:28amnegativeUrine KetonesJuly 17, 2025 11:27amNovember 2024 11:28amnegativeUrine Specific GravityJuly 17, 2025 11:27amNovember 2024 11:28am1.010Urine Occult BloodJuly 17, 2025 11:27amNovember 2024 11:28amnegativeUrine pH July 17, 2025 11:27amNovember 2024 11:28am6.5Urine ProteinNov2024 11:27amNovemb2024 11:28amnegativeUrine UrobilinogenNov2024 11:27amNovember 2024 11:28am0.2Urine NitriteNov2024 11:27amNovemb2024 11:28amNegativeUrine Leukocyte EsteraseNov2024 11:27amNovemb2024 11:28amtrace Vital Signs Vital Reading Result Reference Range Collection Date/Time Height 68 [in_i] July 17, 2025 11:15niRltqhp82.52 kgNov2024 11:14amBody Sucgejvtybl03.9 [degF]97.6-99.0July 17, 2025 11:14amHeart Rate75 /kph93-125 July 17, 2025 11:14amRespiratory rate16 /yvf99-31UkzruiicJuly 17, 2025 11:14am Oxygen saturation by Pulse yrefoygd00 %95-100July 17, 2025 11:14amBP Lntggurk61 mm[Hg]100-140July 17, 2025 11:14amBP Drtaiphje35 mm[Hg]60-100 July 17, 2025 11:14amBMI (Body Mass Index)21.6 kg/i7KcvtshxlJuly 17, 2025 11:14am Advance Directives Advance Directive Response Recorded Date/ Time Advance Directives No January 22 2:24pm Insurance Providers Guarantor Reina Luanne Allanos Address [address] [facility] [address] [address]Wyhyygz Info.Home Phone: Coverage Status Update:2025 Payer Group Member ID Coverage Type Subscriber Relationship to Subscriber Effective Date Expiration Date MMO Id: [id number] C Foos Id: [id number] [address] [facility] [address] Home Phone: Email: [email or web address] Encounters Encounter Location(s) Arrival/Admit Date Discharge/Departure Date Discharge/Departure Disposition Provider(s) Departed Physician/ Provider Office Visit -[facility] [place] July 17, 2025 11:06am July 17, 2025 11:49am Discharged to home care or self care (routine discharge) Alla Simmons APRN Departed Referred -Lab [facility] July 17, 2025 11:15am July 17, 2025 11:16am Discharged to home care or self care (routine discharge) Alla Simmons APRN Recent Diagnosis Onset Date Admit Date Acute UTI Unknown July 17 11:06am Assessments Diagnosis Onset Date Resolution Status Admit Date Acute UTI acuteJuly 17, 2025 11:06am Plan of Treatment [facility]55amUA in office with trace leukocytes. No nitrite or blood. Discussed possibility of UTI versus contamination. For now we will treat with Keflex. Will call with culture results in 2 to 4 days. Push fluids. Follow-up with PASSENGER CAR CLEANING SUPERVISOR if culture is negative and has ongoing symptoms. Future Tests Future scheduled test information is unavailable Pending Tests Test Name Ordered Date Scheduled Date Urine Culture July 17, 2025 11:15am Future Visits Future appointment information is unavailable Future Procedures Procedure Name Ordered Date Scheduled Date Urine Culture July 17, 2025 11:51am Novem 2024 11:15am Future Medications Future medication information is unavailable Patient Instructions Patient instructions are unavailable
--- OUTSIDE RECORDS SUMMARY | 2025-07-22 16:07 | XMS_ITS | Encounter Summary ---
Author Organization [facility] Address [address] [place] [address] Care Team Providers Care Track Service Worker Name Role Phone Jordan Lomax MD Primary Care Provider [phone] Encounter Details DateTypeDepartmentCare Team (Latest Contact Info)Xetzilfksgw69/04/2025Telephone [facility] [address] [place] [phone] Mehdi Mclain DO [address] [place], [facility] Social History Tobacco UseTypesPacks/DayYears UsedDateSmoking Tobacco: Never Assessed Estimated Date of HgwkcfkwHsfqiofzWty55/30/2026ased on last menstrual period of 05/01/2025Sex and Gender InformationValueDate RecordedSex Assigned at BirthNot on fileLegal UwxGavrnf79/28/2023 2:17 PM EDTGender IdentityNot on fileSexual OrientationNot on filedocumented as of this encounter Miscellaneous Notes * Telephone Encounter - Rachel Pope LPN - 07/13/2025 1:49 PM EST Secondary encounter opened and charted in. * Telephone Encounter - Rachel Pope LPN - 07/13/2025 11:13 AM EST I was just calling with a quick question. I had been sick over the weekend and I am feeling better now, but my resting heart rate is still really high. It is around 100, which is high for me. And I just wanted to call and ask if that was normal just because I am getting over something or if that was something that I should be concerned about, so give me a call back at any time. Thanks, bye. Patient message was given to provider and will return call once have spoken with provider. documented in this encounter Plan of Treatment DateTypeDepartmentCare Team (Latest Contact Info)Txxbyizgytt75/19/2025 2:40 PM ESTRoutine [facility] [address] [place] [phone] Mehdi Mclain DO [address] [facility] [address] [place], [place] [phone] documented as of this encounter Visit Diagnoses Not on filedocumented in this encounter Care Teams Team MemberRelationshipSpecialtyStart DateEnd Date Jordan Lomax MD [address] [place] [address] PCP - GeneralInternal Medicine03/06/23documented as of this encounter
--- OUTSIDE RECORDS SUMMARY | 2025-07-22 16:07 | XMS_ITS | Encounter Summary ---
Author Organization [facility] Address [address] [place] [address] Care Team Providers Care Production Hardener Name Role Phone Jordan Lomax MD Primary Care Provider [phone] Encounter Details DateTypeDepartmentCare Team (Latest Contact Info)Vrcjkhtpkrs61/04/2025Telephone [facility] [address] [place] [phone] Mehdi Mclain DO [address] [place], [facility]11 Social History Tobacco UseTypesPacks/DayYears UsedDateSmoking Tobacco: Never Assessed Estimated Date of GjhzbeiyXevxbqpcFhx49/30/2026ased on last menstrual period of 05/01/2025Sex and Gender InformationValueDate RecordedSex Assigned at BirthNot on fileLegal EwsGvkmlt63/28/2023 2:17 PM EDTGender IdentityNot on fileSexual OrientationNot on filedocumented as of this encounter Miscellaneous Notes * Telephone Encounter - Rachel PopeDEB - 07/13/2025 1:28 PM EST Patient called the office and she left a voicemail that she has recently gotten over being sick this weekend and she is better now but resting heart rate has been high for her around 100 and not sureif needing to be concerned. Spoke with provider and he states patient is to hydrate and that she can use gatorade lyte and liquid IV to help if this continues or gets higher she is to return call to office. Patient had called again and was advised just got done talking to provider as he was out of office this morning and she was advised on the above. PVU documented in this encounter Plan of Treatment DateTypeDepartmentCare Team (Latest Contact Info)Oufgwvxxwpj41/19/2025 2:40 PM ESTRoutine [facility] [address] [facility] [address] [place] [phone] Mehdi Mclain DO [address] [facility] [address] [place], [facility]11 documented as of this encounter Visit Diagnoses Not on filedocumented in this encounter Care Teams Team MemberRelationshipSpecialtyStart DateEnd Date Jordan Lomax MD [address] [place] [address] PCP - GeneralInternal Medicine03/06/23documented as of this encounter
--- OUTSIDE RECORDS SUMMARY | 2025-07-22 16:07 | XMS_ITS | Encounter Summary ---
Author Organization [facility] Address [address] [place] [address] Care Team Providers Care Purchasing Internship Name Role Phone Jordan Lomax MD Primary Care Provider Encounter Details DateTypeDepartmentCare Team (Latest Contact Info)Wvekcqukqko02/05/2025Telephone [facility] [place] [facility] [address] [place] [phone] Mehdi Mclain DO [address] [place], [facility]11 Social History Tobacco UseTypesPacks/DayYears UsedDateSmoking Tobacco: Never Assessed Estimated Date of SbbesqklSaiabxpwQmr15/30/2026ased on last menstrual period of 05/01/2025Sex and Gender InformationValueDate RecordedSex Assigned at BirthNot on fileLegal AmkPmzidg48/28/2023 2:17 PM EDTGender IdentityNot on fileSexual OrientationNot on filedocumented as of this encounter Miscellaneous Notes * Telephone Encounter - Rachel PopeDEB - 07/14/2025 11:01 AM EST I had called yesterday about having a high resting heart rate. I just wanted to call back today andsay I am still not feeling very well. And it is been quite a while since I gotten sick, I guess I would say I was just wondering if there was any way I could be seen either today or tomorrow just to see if there is anything that I could do. Thanks. Pull me back at [phone]. Patient call was returned and she was advised I would transfer her to clerical. PVU documented in this encounter Plan of Treatment DateTypeDepartmentCare Team (Latest Contact Info)Mzjzqocfart05/19/2025 2:40 PM ESTRoutine [facility] [address] [place] [address] Mehdi Mclain DO [address] [place], [facility]11 documented as of this encounter Visit Diagnoses Not on filedocumented in this encounter Care Teams Team MemberRelationshipSpecialtyStart DateEnd Date Jordan Lomax MD [address] [place] [address] PCP - GeneralInternal Medicine03/06/23documented as of this encounter
--- OUTSIDE RECORDS SUMMARY | 2025-07-22 16:07 | XMS_ITS | Patient Health Record ---
Author Organization [facility] [place] Address [address] [place] [address] Care Team Providers Care Emergency Management Director Name Role Phone Shana Cee Primary Care Provider DanielambarNorris [phone] Allergies No Known Allergies Results Component Value Reference Range Notes CBC AUTO DIFF Reviewed date:04/27/2025 07:24:08 PM Interpretation: Performing Lab: Notes/Report: [facility] , White Blood Count 6.5 4.0-11.0 10 3/uL Red Blood Count4.574.20-5.40 10 6/zTSmvqkgmced59.012.0-16.0 g/iFQsukvijuvj51.2 36.0-48.0 %Mean Corpuscular Trttup40.281.0-99.0 fLMean Corpuscular Hemoglobin 30.626.7-34.0 pgMean Corpuscular HGB Conc34.029.9-35.2 g/dLRed Cell Distribution Width11.911.0-15.0 %Platelet Rdzgn625371-760 10 3/uLMean Platelet Bwtyru08.19.5- 13.5 fLNeutrophils Percent Auto53.443.0-75.0 %Lymphocytes Percent Auto30.020.5- 60.0 %Monocytes Percent Auto8.31.7-12.0 %Eosinophils Percent Auto7.40.9-7.0 % Basophils Percent Auto0.60.2-2.0 %Immature Granulocytes Pct Auto0.30.0-0.5 % Neutrophils Absolute Auto3.51.4-6.5 10 3/uLLymphocytes Absolute Auto2.01.2-3.8 10 3/uLMonocytes Absolute Auto0.50.3-0.8 10 3/uLEosinophils Absolute Auto0.50.0- 0.7 10 3/uLBasophils Absolute Auto0.00.0-0.1 10 3/uLImmature Granulocytes Abs Auto0.020.00-0.03 10 3/uLPerforming Lab:see noteML - [facility] LB LIPID PROFILE Reviewed date:04/27/2025 08:50:10 PM Interpretation: Performing Lab: Notes/Report: [facility] ,Cgurdpejpymer17<=150 mg/dMGxdblnrardq610<=200 mg/dLHDL Gasqrkqtxxf6934-57 mg/dL > or =60 mg/dl - LOW CARDIOVASCULAR RISK <40 mg/dl - HIGH CARDIOVASCULAR RISK LDL Cholesterol Kobvnvgphw50.6 <100 mg/dl OPTIMAL >190 mg/dl VERY HIGH 130-159 mg/dl BORDERLINE HIGH 160-189 mg/dl HIGH 100-129 mg/dl NEAR OR ABOVE OPTIMAL VLDL YMQUMLJXTHW21.4Chol HDL Ratio2.8 7.1 - 11.0 MODERATE RISK 4.4 - 7.1 AVERAGE RISK 3.3 - 4.4 LOW RISK >11.0 HIGH RISK Performing Lab:see noteML - [facility] LBPROF 14(COMP METB) Reviewed date:04/27/2025 08:50:10 PM Interpretation: Performing Lab: Notes/Report: [facility] ,Dtkzdo343787-543 mmol/LPotassium4.23.5-5.1 mmol/RSncrgdkf81011-529 mmol/LCarbon Xjbajhy73.121.0-32.0 mmol/LAnion Gap11.2Obwjygt6263-271 mg/dLBlood Urea Nitrogen 17.07.0-18.0 mg/dLCreatinine1.060.55-1.02 mg/dLEstimated GFR ( Diamond>60 >=60 mL/min/1.73m 2Estimated GFR (Non- Shelley>60>=60 mL/min/1.73m 2BUN Creatinine Ratio16.9Tmzcfoe1.98.5-10.1 mg/dLBilirubin Total0.40.2-1.0 mg/dL Aspartate Amino Tropxpcwdau6559-44 U/LAlanine Lwjvlyvpdtugcwxl7821-32 U/L Alkaline Yxkyplkztwl0112-332 U/LTotal Protein7.76.4-8.2 g/dLAlbumin Level4.33.4- 5.0 g/dLGlobulin3.4Albumin Globulin Ratio1.3Performing Lab:see noteML - [facility] LBTSH Reviewed date:04/27/2025 08:50:10 PM Interpretation: Performing Lab: Notes/Report: [facility] ,Thyroid Stimulating Hormone2.4960.358-3.740 uIU/mLPerforming Lab:see note - [facility] LBPROF CHEM 8 (BAS METB) Reviewed date:05/04/2025 07:51:30 PM Interpretation: Performing Lab: Notes/Report: [facility] ,Mahmnb200898-739 mmol/LPotassium4.33.5-5.1 mmol/BWdknaofx56305-562 mmol/LCarbon Ibhejic76.621.0-32.0 mmol/LAnion Gap12.9Llkdmlg9872-337 mg/dLBlood Urea Nitrogen 21.07.0-18.0 mg/dLCreatinine0.910.55-1.02 mg/dLEstimated GFR ( Diamond>60 >=60 mL/min/1.73m 2Estimated GFR (Non- Shelley>60>=60 mL/min/1.73m 2BUN Creatinine Ratio23.0Lhsarvd8.08.5-10.1 mg/dLPerforming Lab:see noteML - [facility] LB Reason For Referral No Information Social History Tobacco Use: Social History Observation Description Date Details (start date - stop date) Never Smoker NA - NA Tobacco Control (Standard) Question Answer Notes Tobacco use: Nonsmoker AUDIT-C (Standard) Question Answer Notes Did you have a drink containing alcohol in the p ast year? No Izqtkw7UbyourgfzcccruZxaeqmvq Vital Signs Blood pressure diastolic 72 mm Hg 02/15/2025 Rtmybk28 in02/15/2025lood pressure voxefurj720 mm Hg02/15/20257731Wreakn244.4 lbs 02/15/2025BMI20.43 kg/m202/15/2025 Encounters Encounter Location Date Provider Diagnosis [facility] [address] [place] [address] 04/27/2025 Norris Heriberto [facility] [facility] [place] [address] 04/27/2025Shana CeeAbnormal blood chemistry R79.[facility] [facility] [phone] [facility]Children[facility] [facility] [place] [address] [facility] [facility] [place] [address]Sh[facility]Sent[facility] Z00.00 Assessments Encounter Date Diagnosis (ICD Code) Assessment Notes Treatment Notes Treatment Clinical Notes Section Notes 02/15/2025 Wellness examination (ICD-10 - Z 00.00) ROS done exam done no concerns see OBGYN 04/27/2025bnormal blood chemistry (ICD-10 - R79.9) Plan Of Treatment Pending Test Test Name Order Date PROF CHEM 8 (BAS METB) 04/27/2025 Insurance Providers Payer Name Payer Address Payer Phone Subscriber Number Group Number Insured Name Patient Relationship to Insured Coverage Start Date Coverage End Date [facility] [address] [facility] [id number] TIMI OSWALDelf - patient is the insured Medical (General) History Hospitalization History Reason Date(Month/Year) Child
--- OUTSIDE RECORDS SUMMARY | 2025-07-22 16:07 | XMS_ITS | Encounter Summary ---
Author Organization [facility] Address [address] [place] [address] Care Team Providers Care Thread Roller Name Role Phone Jordan Lomax MD Primary Care Provider Encounter Details DateTypeDepartmentCare Team (Latest Contact Info)Jtozetcyocs16/06/2025amboo flowsheet [facility] [address] [place] [address] Mehdi Mclain DO [facility] [address] [place], [place] [address] Social History Tobacco UseTypesPacks/DayYears UsedDateSmoking Tobacco: Never Assessed Estimated Date of TkotywfjBmmdiqpcRps42/30/2026Based on last menstrual period of 05/01/2025Sex and Gender InformationValueDate RecordedSex Assigned at BirthNot on fileLegal AcpAgkflb34/28/2023 2:17 PM EDTGender IdentityNot on fileSexual OrientationNot on filedocumented as of this encounter Plan of Treatment DateTypeDepartmentCare Team (Latest Contact Info)Xycyaaerzjv23/19/2025 2:40 PM ESTRoutine [facility] [address] [place] [address] Mehdi Mclain DO [address], [place] [address] documented as of this encounter Visit Diagnoses Not on filedocumented in this encounter Care Teams Team MemberRelationshipSpecialtyStart DateEnd Date Jordan Lomax MD [address] [place] [address] PCP - GeneralInternal Medicine03/06/23documented as of this encounter
--- OUTSIDE RECORDS SUMMARY | 2025-07-22 16:07 | XMS_ITS | Clinical Summary ---
Author Organization [facility] Address [address], [address] [place] [address] Care Team Providers Care Travel Registered Nurse Oncology Name Role Phone Jordan Lomax MD Primary Care Provider [phone] Allergies No known active allergies Medications No known medications Family History Medical HistoryRelationNameCommentsNo Known ProblemsFatherHigh Cholesterol Maternal GrandfatherNo Known ProblemsMotherLiver DiseasePaternal Grandmother alcholicBreast CancerNeg HxOvarian CancerNeg HxStrokeNeg HxRelationNameStatus CommentsFatherMaternal GrandfatherMotherPaternal Grandmother Social History Tobacco UseTypesPacks/DayYears UsedDateSmoking Tobacco: NeverSmokeless Tobacco: Never Tobacco Cessation:Counseling Given: Not Answered Alcohol UseStandard Drinks/WeekCommentsYes0 (1 standard drink = 0.6 oz pure alcohol)socialHumiliation, Afraid, Rape, and Kick questionnaireAnswerDate RecordedWithin the last year, have you been afraid of your partner or ex-partner?12/11/2022Within the last year, have you been humiliated or emotionally abused in other ways by your partner or ex-partner?12/11/2022 Within the last year, have you been kicked, hit, slapped, or otherwise physically hurt by your partner or ex-partner?12/11/2022Within the last year, have you been raped or forced to have any kind of sexual activity by your part ner or ex-partner?12/11/2022Overall Financial Resource Strain (CARDIA)Answer Date RecordedHow hard is it for you to pay for the very basics like food, housing, medical care, and heating?Not hard at all12/11/2022HQ-2AnswerDate RecordedPHQ-9 Total Hiivm591Exercise Vital SignAnswerDate RecordedOn average, how many days per week do you engage in moderate to strenuous exercise (like a brisk walk)?5 days12/11/2022On average, how many minutes do you engage in exercise at this level?40 min12/11/2022Hunger Vital SignAnswerDate Recorded Within the past 12 months, you worried that your food would run out before you got the money to buymore.Never true12/11/2022Within the past 12 months, the food you bought just didn't last and you didn't have money to get more.Never true 12/11/2022RAPARE - TransportationAnswerDate RecordedLack of Transportation (Medical)Not on file12/11/2022In the past 12 months, has lack of transportation kept you from meetings, work, or from getting things needed for daily living?No 12/11/2022Housing Stability Vital SignAnswerDate RecordedUnable to Pay for Housing in the Last YearNot on file12/11/2022Number of Places Lived in the Last YearNot on file12/11/2022In the last 12 months, was there a time when you did not have a steady place to sleep or slept in ashelter (including now)?No 12/11/2022Food InsecurityAnswerDate RecordedWithin the past 12 months, you worried that your food would run out before you got the money to buymore.1 12/11/2022Within the past 12 months, the food you bought just didn't last and you didn't have money to get more.regnantCommentsNoSex and Gender InformationValueDate RecordedSex Assigned at BirthNot on fileLegal SexFemale 11/19/2022 9:59 AM EDTGender IdentityNot on fileSexual OrientationNot on file Last Filed Vital Signs Vital SignReadingTime TakenCommentsBlood Wjhmcjij264/7004 11:38 AM EDT Dcdcd3194 11:38 AM EDTTemperature--Respiratory Zetk364912/11/2022 11:38 AM EDTOxygen Rqwxagzank94%12/11/2022 11:38 AM EDTInhaled Oxygen Concentration-- Misdqd32.9 kg (132 lb)12/11/2022 11:38 AM CNMPnwmgu861.7 cm (5' 8 )12/11/2022 11:38 AM EDTBody Mass Index20.0712/11/2022 11:38 AM EDT Plan of Treatment Health MaintenanceDue DateLast DoneCommentsDepression Yzeizy2510/29/2010Varicella vaccine (1 of 2 - 13+ 2-dose series)2011HIV tagluv3610/29/2013HPV vaccine (1 - 3-dose series)2013Hepatitis C qtwbzz6510/29/2016DTaP/Tdap/Td vaccine (1 - Tdap)2017Hepatitis B vaccine (1 of 3 - 19+ 3-dose series)2017Flu vaccine (#1)5COVID-19 Vaccine ( - season)2025Pap smear Hepatitis A vaccineAged OutNo longer eligible based on patient's age to complete this topicHib vaccineAged OutNo longer eligible based on patient's age to complete this topicMeningococcal (ACWY) vaccineAged OutNo longer eligible based on patient's age to complete this topicMeningococcal B vaccineAged OutNo longer eligible based on patient's age to complete this topic Pneumococcal 0-49 years VaccineAged OutNo longer eligible based on patient's age to complete this topicPolio vaccineAged OutNo longer eligible based on patient's age to complete this topic Procedures Procedure NamePriorityDate/TimeAssociated DiagnosisCommentsGYN CYTOLOGYRoutine 12/11/2022 8:26 AM EDT from Last 3 Months or Most Recently Relevant to Health Maintenance Results * SOLAR SALES MANAGER Cytology (12/11/2022 8:26 AM EDT)ComponentValueRef RangeTest Method Analysis TimePerformed AtPathologist SignatureCytology ReportINTERPRETATION Cervical material, (ThinPrep vial, Imaging-assisted review): Specimen Adequacy: ? Satisfactory for evaluation. ? - Endocervical/transformation zone component present. Descriptive Diagnosis: ? Negative for intraepithelial lesion or malignancy. ?? Social Media Project Manager: ?? 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 ??[place], [place] [address] [facility] LABORATORIESSpecimen (Source)Anatomical Location / LateralityCollection Method / VolumeCollection TimeReceived TimeCERVICAL JBJHCMHA48/04/2023 8:26 AM EDT12/13/2022 8:26 AM EDT Narrative Authorizing ProviderResult TypeResult StatusWejanet Villalobos MDPATHOLOGY/CYTOLOGY ORDERABLESFinal ResultPerforming OrganizationAddressCity/State/ZIP CodePhone Number [facility] [address] [place] [address], [facility] [phone] [facility] [employer] [address] [place] [address] from Last 3 Months or Most Recently Relevant to Health Maintenance Insurance Care Teams Team MemberRelationshipSpecialtyStart DateEnd Date Jordan Lomax MD [address] [place], [place] [phone] PCP - GeneralInternal Medicine11/19/22
--- OUTSIDE RECORDS SUMMARY | 2025-07-22 16:07 | XMS_ITS | Clinical Summary ---
Author Organization [facility] Address [address] [place] [address] Care Team Providers Care Coffee Sampler Name Role Phone Jordan Lomax MD Primary Care Provider [phone] Allergies No known active allergies Medications MedicationSigDispense QuantityRefillsLast FilledStart DateEnd DateStatus MV-Min-Fe Fum-FA-DHA ( 1 PO) Take by mouth.Active Encounters DateTypeDepartmentCare EhksNlcvpmtnhlf53/06/2025 9:40 AM ESTRoutine [facility] [address] [place] [address] Mehdi Mclain, DO First trimester ([facility]); 10 weeks gestation of ([facility])07/15/2025amboo flowsheet [facility] [address] [place] [address] Mehdi Mclain, DO 07/14/2025Telephone [facility] [address] [place] [address] Mehdi Mclain, DO 07/13/2025Telephone [facility] [address] [place] [address] Mehdi Mclain, DO 07/13/2025Telephone [facility] [address] [facility] [address] Mehdi Mclain, DO 06/25/2025 10:30 AM EDTInitial [facility] [address] [place] [address] [place] [address] GA: 7w6d1 10:00 AM EDTAncillary Procedure [facility] [address] [place] [address] [place] [id number] Missed menses; Positive urine test ([facility])06/20/2025Travelfrom Last 3 Months Social History Tobacco UseTypesPacks/DayYears UsedDateSmoking Tobacco: Never Assessed Estimated Date of FssjpgpmGafaszdrSel76/30/2026ased on last menstrual period of 05/01/2025Sex and Gender InformationValueDate RecordedSex Assigned at BirthNot on fileLegal SbsNltrhr68/28/2023 2:17 PM EDTGender IdentityNot on fileSexual OrientationNot on file Last Filed Vital Signs Vital SignReadingTime TakenCommentsBlood Kyjckqay419/7407/15/2025 9:45 AM EST Pulse--Temperature--Respiratory Rate--Oxygen Saturation--Inhaled Oxygen Concentration--Dyktmc25 kg (141 lb)07/15/2025 9:45 AM IJAOrsusa579.7 cm (5' 8 ) 03/29/2023 11:04 AM EDTBody Mass Index21.44003/29/2023 11:04 AM EDT Plan of Treatment DateTypeDepartmentCare Team (Latest Contact Info)Uqlxjphxoia39/19/2025 2:40 PM ESTRoutine [facility] [address] [place] [address] [place] [address] Mehdi Mclain DO [address] [place] [address] [place] [address] Procedures Procedure NamePriorityDate/TimeAssociated DiagnosisCommentsPOCT URINALYSIS WXCADIIDUdpijlf77/06/2025 9:51 AM EST First trimester ([facility]) POCT , QBJAMQktgvuq03/17/2025 11:02 AM EDT Missed menses POCT URINALYSIS EDZQJCOBDanxjzs81/17/2025 11:01 AM EDT Missed menses US OB YWZTSEIGWRIUZxseqia60/17/2025 10:23 AM EDT Missed menses Positive urine test ([facility]) from Last 3 Months Results * (ABNORMAL) POCT urinalysis dipstick manually resulted (07/15/2025 9:51 AM EST) Only the most recent of2 resultswithin the time period is included. ComponentValueRef RangeTest MethodAnalysis TimePerformed AtPathologist Signature Color, UAYellowClarity, UAClearGlucose, UANegativeNegative - 2000(110) ++++ mg/dLBilirubin, UANegativeNegative - 4(70) +++ mg/dLKetones, UANegativeNegative - 160(16) ++++ mg/dLSpec Grav, UA1.0301 - 1.03Blood, UANegativeNegative - 50 Sandor/mcLpH, UA6.05 - 9Protein, UAPositiveNegative - 2000(20) ++++ mg/dLComment: TraceUrobilinogen, UA0.20.2 - 12 mg/dLLeukocytes, UAPositiveNegative - 500+++ David/mcLComment:1+Nitrite, UANegativeNegative - PositiveSpecimen (Source) Anatomical Location / LateralityCollection Method / VolumeCollection Time Received IhikGoniu79/06/2025 9:51 AM EST Narrative Authorizing ProviderResult TypeResult StatusCorey Rayne DOPOINT OF CARE TEST ENTER/EDIT ORDERABLESFinal Result * (ABNORMAL) POCT , urine manually resulted (06/25/2025 11:02 AM EDT) ComponentValueRef RangeTest MethodAnalysis TimePerformed AtPathologist SignaturePreg Test, UrPositiveNegativeSpecimen (Source)Anatomical Location / LateralityCollection Method / VolumeCollection TimeReceived TimeUrine 06/25/2025 11:02 AM EDT Narrative Authorizing ProviderResult TypeResult StatusCorey Rayne DOPOINT OF CARE TEST ENTER/EDIT ORDERABLESFinal Result * US OB transvaginal (06/25/2025 10:23 AM EDT)Anatomical RegionLaterality ModalityBodyUltrasoundSpecimen (Source)Anatomical Location / Laterality Collection Method / VolumeCollection TimeReceived Time06/25/2025 1:07 PM EDT Impressions 06/25/2025 1:18 PM EDT Findings consistent with a live intrauterine gestation, current sonographic age of 8 weeks and 0 days resulting in an estimated date of delivery of February 04, 2026. TRANSCRIBED BY: ? ELECTRONICALLY SIGNED BY: Kip Parekh MD Narrative 06/25/2025 1:18 PM EDT FINDINGS: A single intrauterine gestational sac is present. ??No subchorionic hemorrhage. ??A single pole is present. Normal heart rate at 163 beats per minute. ??Yolk sac also is seen. ?? Current sonographic age is 8 weeks and 0 days based on the crown-rump length measurement of 1.6 cm. ??Based on this age, current estimated date of delivery is February 04, 2026. ??No pelvic fluid or adnexal mass present. ??Cervix is closed, 4.1 cm length. Procedure Note Kip Parekh MD - 06/25/2025 FINDINGS: A single intrauterine gestational sac is present. No subchorionichemorrhage. A single pole is present. Normal heart rate at163 beats per minute. Yolk sac also is seen. Current sonographic age is8 weeks and 0 days based on the crown-rump length measurement of 1.6 cm.Based on this age, current estimated date of delivery is February 04, 2026. Nopelvic fluid or adnexal mass present. Cervix is closed, 4.1 cm length. IMPRESSION: Findings consistent with a live intrauterine gestation, currentsonographic age of 8 weeks and 0 days resulting in an estimated date ofdelivery of February 04, 2026. TRANSCRIBED BY: ELECTRONICALLY SIGNED BY: Kip Parekh MD Authorizing ProviderResult TypeResult StatusCorey Rayne DOI OB US PROCEDURES Final Result from Last 3 Months Insurance * Guarantor: Giselle Oswald TypeRelation to PatientDate of BirthPhone Billing AddressPersonal/EkflltEdsw67/20/2001 [address] [place] [phone] Care Teams Team MemberRelationshipSpecialtyStart DateEnd Date Jordan Lomax MD [address] [place], [place] [id number] PCP - GeneralInternal Medicine03/06/23
--- OUTSIDE RECORDS SUMMARY | 2025-07-22 16:12 | XMS_ITS | CCD ---
Author Organization [facility] Care Team Providers Care Wrapper Sheeter Name Role Phone Jordan Lomax MD Primary Care Provider RHEA HICKS Referring Unavailable JORDAN LOMAX Primary Care Unavailable EDWIN ROSARIO Referring Unavailable JORDAN LOMAX Primary Care Unavailable Jordan Lomax MD Primary Care Provider Jordan Lomax MD Primary Care Provider NIHARIKA MCLAIN Attending Unavailable Joce Louis MD Primary Care Provider Dulce Leigh APRN Attending Provider [phone] Dulce Leigh Attending Unavailable Dulce Leigh Admitting Unavailable Medications Current Medications MedicationDrug Class(es)DatesSig (Normalized)Sig (Original)cephalexin 500 mg oral capsule (1 source)Cephalosporin AntibacterialStart: 96-67-8819wcdn 1 capsule by mouth three times dailyPrenatal MV-Min-Fe Fum-FA-DHA ( 1 PO) (9 sources) MV-Min-Fe Fum-FA-DHA ( 1 PO) Take by mouth. Active MV-Min-Fe Fum-FA-DHA ( 1 PO) Take by mouth. 0 Active Completed/Discontinued Medications MedicationDrug Class(es)DatesSig (Normalized)Sig (Original)polymyxin b 53529 unt/ml / trimethoprim 1 mg/ml ophthalmic solution (2 sources)Dihydrofolate Reductase Inhibitor Antibacterial, Polymyxin-class AntibacterialStart: 01-22-2025 End: 49-65-1431Ycfwvgxfa B Sulf-Trimethoprim 10,000 unit- 1 mg/mL drops Discontinued 1 DROPS OPHTHALMIC Every three hours 10 7 0 January 21, 2025 11:00pm July 17, 2025 11:15am do not exceed 6 doses in a 24 hr period Problems Problem ClassificationProblemDateDocumented DateEpisodic/ChronicGenitourinary symptoms and ill-defined conditions (2 sources)Dysuria; Translations: [Dysuria]Onset: 143521-83-2020Cnovgpnf Menstrual disorders (3 sources)Amenorrhea, unspecified; Translations: [Missed period]Onset: 167598-62-3426MyqxsosKukez and delivery including normal (10 sources)Third trimester ; Translations: [Encounter for supervision of normal , unspecified, third trimester]70-01-1218ZwjkaoahJnvjlmad codes; unclassified (1 source)Gestation period, 7 weeks; Translations: [Less than 8 weeks gestation of ]88-27-9061FjtlpqucHtvarpbw codes; unclassified (2 sources)Gestation period, 11 weeks; Translations: [11 weeks gestation of ]20-87-8887WcehlzvxPoefetmp codes; unclassified (2 sources)Gestation period, 10 weeks; Translations: [10 weeks gestation of ]31-49-6439DqfajajtWvxxbbsryql injury; contusion (2 sources)Corneal abrasion; Translations: [Injury of conjunctiva and corneal abrasion without foreign body, unspecified eye, initial encounter]01-22-2025 EpisodicUrinary tract infections (2 sources)Acute urinary tract infection; Translations: [Urinary tract infection, site not specified]44-79-8093Hbjecdir Results Test NameValueInterpretationReference RangeFacilityLaboratory - Chemistry and Chemistry - challengeOrdered By: Dulce Leigh on 90-18-0691Ipnrsgslc Ql (U) NegativeOhiohealth Arthur G.H. Bing, Md, Cancer CenterGlucose (U) [Mass/Vol]NegativeOhiohealth Arthur G.H. Bing, Md, Cancer CenterKetones Ql (U)NegativeOhiohealth Arthur G.H. [facility], Cancer Center pH (U)6.5 [pH][facility] Memorial Hospitalpecific gravity (U) [Rel density]1.010Ohiohealth Arthur G.H. Bing, Md, Cancer CenterUrobilinogen (U) [Mass/Vol]0.2 mg/dLOhiohealth Arthur G.H. Bing, Md, Cancer CenterLaboratory - Specimen informationOrdered By: Dulce Leigh on 62-59-3072Vqxaleumsk (U)clearOhiohealth Arthur G.H. Bing, Md, Cancer CenterColor (U)PaleyellowOhiohealth Arthur G.H. Bing, Md, Cancer CenterLaboratory - UrinalysisOrdered By: Dulce Leigh on 64-14-3600Dftjmvnqe esterase Test strip Ql (U)traceOhiohealth Arthur G.H. Bing, Md, Cancer CenterNitrite Ql (U)NegativeOhiohealth Arthur G.H. Bing, Md, Cancer CenterProtein Ql (U)NegativeOhiohealth Arthur G.H. Bing, Md, Cancer CenterNo Panel InformationOrdered By: Dulce Leigh on 92-26-4558Nlahk Occult Blood NegativeOhiohealth Arthur G.H. Bing, Md, Cancer CenterUrine Cultureon 82-34-2041Urebpegt identified Cx Nom (U)15,000 colonies/ml mixed bacterial skin contaminants 2 Days PERFORMED BY: [place] [address] PATHOLOGIST TWISTER TENDER SHERICE YORK M.D.NormalLakewood Ranch Medical Center Physician GroupComment on above: Performed By: #### CUU #### [place] [address] USAUrinalysis macro (dipstick) panel (U)on 07-15-2025 Bilirubin, UANegativeNegative - 4(70) +++ mg/dLNOMS HealthcareBlood, UANegative Negative - 50 Sandor/mcLNOMS HealthcareClarity, UAClearNOMS HealthcareColor, UA YellowNOMS HealthcareGlucose, UANegativeNegative - 2000(110) ++++ mg/dLNOMS HealthcareInterpretation and review of laboratory resultsAbnormalReynolds County General Memorial Hospital Ketones, UANegativeNegative - 160(16) ++++ mg/dLNOMS HealthcareLeukocytes, UA PositiveNegative - 500+++ David/mcLNOMS HealthcareComment on above:1+Nitrite, UA NegativeNegative - PositiveNOMS HealthcarepH, UA6.05 - 9NOMS HealthcareProtein, UAPositiveNegative - 2000(20) ++++ mg/dLNOMS HealthcareComment on above:Trace Spec Grav, UA1.0301 - 1.03NOMS HealthcareUrobilinogen, UA0.20.2 - 12 mg/dLNOMS HealthcareNOMS HealthcareHCG ( test) Ql (U)on 67-19-5120Liqcniohtyccbi and review of laboratory resultsAbnormalNOMS HealthcarePreg Test, UrPositive NegativeNOMS HealthcareNOMS HealthcareUS OB TRANSVAGINALon 04-21-3007LZ OB TRANSVAGINALFINDINGS: A single intrauterine gestational sac is present. No subchorionic hemorrhage. A single pole is present. Normal heart rate at 163 beats per minute. Yolk sac also is seen. Current sonographic age is 8 weeks and 0 days based on the crown-rump length measurement of 1.6 cm. Based on this age, current estimated date of delivery is February 04, 2026. No pelvic fluid or adnexal mass present. Cervix is closed, 4.1 cm length. IMPRESSION: Findings consistent with a live intrauterine gestation, current sonographic age of 8 weeks and 0 days resulting in an estimated date of delivery of February 04, 2026. TRANSCRIBED BY: ELECTRONICALLY SIGNED BY: Debra Ugalde AvailableComment on above:Order Comment: US OB TRANSVAGINAL No LMP recorded.Urinalysis macro (dipstick) panel (U)on 94-31-2920Nfmevimnn, UA NegativeNegative - 4(70) +++ mg/dLNOMS HealthcareBlood, UANegativeNegative - 50 Sandor/mcLNOMS HealthcareClarity, UAClearNOMS HealthcareColor, UAYellowNOMS HealthcareGlucose, UANegativeNegative - 2000(110) ++++ mg/dLNONV Healthcare Interpretation and review of laboratory resultsNormalNOMS HealthcareKetones, UA NegativeNegative - 160(16) ++++ mg/dLNOMS HealthcareLeukocytes, UANegative Negative - 500+++ David/mcLNOMS HealthcareNitrite, UANegativeNegative - Positive NOMS HealthcarepH, UA5.55 - 9NOMS HealthcareProtein, UANegativeNegative - 1999(20) ++++ mg/dLNOMS HealthcareSpec Grav, UA1.0251 - 1.03N[facility] Healthcare Urobilinogen, UA1.00.2 - 12 mg/dLNOMS HealthcareNOMS HealthcareUS OB INCOMPLETE ANATOMYon 02-63-[address]16[address] [address] Ultrasound Report Signed Patient: REINA OSWALD MR#: [id number] : 2000 Acct:[id number] Age/Sex: 22 / F ADM Date: 07/08/23 Loc: US Attending Dr: Niharika Mclain D.O. Ordering Physician: Niharika Mclain D.O. Date of Service: 07/08/23 Procedure(s): US OB incomplete anatomy Accession Number(s): [id number] cc: Niharika Mclain D.O.; Physician,Non-Staff James The [address] [address] Patient Name: REINA OSWALD MRN: [facility]:[id number] date: 2000 Sex: F Assigned Patient Location: US Current Patient Location: LAB Accession/Order Number: [id number] Exam Date: 07/08/2023 14:27 Report Date: 07/08/2023 15:36 At the request of: NIHARIKA MCLAIN Procedure: US OB incomplete anatomy EXAM: US OB incomplete anatomy HISTORY: SUVISUALIZED RVOT, LVOT, NOSE, AND LIPS COMPARISON: Ultrasound OB anatomy 07-01 TECHNIQUE: Transabdominal ultrasound FINDINGS: Heart rate: 137 beats per minutes Presentation: Cephalic Anatomy: Four-chamber heart, RVOT, LVOT, hard palate GA: 24 weeks 1 day JAMES: 10/27/2023 US/US OB incomplete anatomy IMPRESSION: 1. Single live intrauterine . 2. Adequate visualization of the four-chamber heart, cardiac outflow tracts, and hard palate. No appreciable abnormality. Electronically authenticated by: JOSE ROJAS Date: 07/08/2023 15:36 Dictated By: Jose Rojas M.D. Signed By: 08/28/24 1451 DD/ 1536 TD/TT: Radial Arm Saw Operator:ROSE MARYHRadiology, Radiologist, MD - 08/28/[address] [address] Ultrasound Report Signed Patient: REINA OSWALD MR#: [id number] : 2000 Acct:[id number] Age/Sex: 22 / F ADM Date: 07/08/23 Loc: US Attending Dr: Niharika Mclain D.O. Ordering Physician: Niharika Mclain D.O. Date of Service: 07/08/23 Procedure(s): US OB incomplete anatomy Accession Number(s): [id number] cc: Niharika Mclain D.O.; Physician,Non-Staff [place] [address] Patient Name: REINA OSWALD MRN: [facility]:[id number] date: 2000 Sex: F Assigned Patient Location: US Current Patient Location: LAB Accession/Order Number: [id number] Exam Date: 07/08/2023 14:27 Report Date: 07/08/2023 15:36 At the request of: NIHARIKA MCLAIN Procedure: US OB incomplete anatomy EXAM: US OB incomplete anatomy HISTORY: SUVISUALIZED RVOT, LVOT, NOSE, AND LIPS COMPARISON: Ultrasound OB anatomy 07-01 TECHNIQUE: Transabdominal ultrasound FINDINGS: Heart rate: 137 beats per minutes Presentation: Cephalic Anatomy: Four-chamber heart, RVOT, LVOT, hard palate GA: 24 weeks 1 day JAMES: 10/27/2023 US/US OB incomplete anatomy IMPRESSION: 1. Single live intrauterine . 2. Adequate visualization of the four-chamber heart, cardiac outflow tracts, and hard palate. No appreciable abnormality. Electronically authenticated by: JOSE ROJAS Date: 07/08/2023 15:36 Dictated By: Jose Rojas M.D. Signed By: 08/28/24 1451 DD/ 1536 TD/TT: Radial Arm Saw Operator: RIANA Castillo OB INCOMPLETE ANATOMYOrdered By: Radiologist Radiology on 96-92-0846VOMQ [employer] Work Phone: Urinalysis macro (dipstick) panel (U)Ordered By: Anyi Ramirez on 30-26-6625Griaonwkl, UANegativeNegative - 4(70) +++ mg/dLNOMS HealthcareBlood, UANegativeNegative - 50 Sandor/mcLNOMS HealthcareClarity, UAClear NOMS HealthcareColor, UAYellowNOMS HealthcareGlucose, UANegativeNegative - 2000(110) ++++ mg/dLNOMS HealthcareInterpretation and review of laboratory resultsAbnormalNOMS HealthcareKetones, UANegativeNegative - 160(16) ++++ mg/dL NOMS HealthcareLeukocytes, UANegativeNegative - 500+++ David/mcLNOMS Healthcare Nitrite, UANegativeNegative - PositiveNOMS HealthcarepH, UA7.05 - 9NOMS HealthcareProtein, UAPositiveNegative - 2000(20) ++++ mg/dLNOMS HealthcareSpec Grav, UA1.0251 - 1.03NOMS HealthcareUrobilinogen, UA2.00.2 - 12 mg/dLNOMS HealthcareNOMS HealthcareUrinalysis macro (dipstick) panel (U)Ordered By: Anyi Ramirez on 59-84-1795Jxofkjkuw, UANegativeNegative - 4(70) +++ mg/dLNOMS HealthcareBlood, UANegativeNegative - 50 Sandor/mcLNOMS HealthcareClarity, UAClear NOMS HealthcareColor, UAYellowNOMS HealthcareGlucose, UANegativeNegative - 1999(110) ++++ mg/dLNOMS HealthcareInterpretation and review of laboratory resultsNormalNOMS HealthcareKetones, UANegativeNegative - 160(16) ++++ mg/dLNOMS HealthcareLeukocytes, UANegativeNegative - 500+++ David/mcLNOMS Healthcare Nitrite, UANegativeNegative - PositiveNOMS HealthcarepH, UA6.05 - 9NOMS HealthcareProtein, UANegativeNegative - 2000(20) ++++ mg/dLNOMS HealthcareSpec Grav, UA1.0251 - 1.03NOMS HealthcareUrobilinogen, UA0.20.2 - 12 mg/dLNOMS HealthcareNOMS HealthcareUS OB GROWTHon 16-94-8016[place] [address] Ultrasound Report Signed Patient: REINA OSWLAD MR#: [id number] : 2000 Acct:[id number] Age/Sex: 22 / F ADM Date: 10/02/23 Loc: NOMS Attending Dr: Niharika Mclain D.O. Ordering Physician: Niharika Mclain D.O. Date of Service: 10/02/23 Procedure(s): US OB growth Accession Number(s): [id number] cc: Niharika Mclain D.O.; Physician,Non-Staff James The [address] [address] Patient Name: REINA OSWALD MRN: [id number] date: 2000 Sex: F Assigned Patient Location: [facility] Current Patient Location: [facility] Accession/Order Number: [id number] Exam Date: 10/02/2023 09:04 Report Date: 10/02/2023 10:02 At the request of: NIHARIKA MCLAIN Procedure: US OB growth EXAMINATION: US OB growth HISTORY: LGA COMPARISON: No relevant comparison available. FINDINGS: Heart Rate: 133.0 bpm Amniotic Fluid Volume: 11.2 cm Number: 1.0 Position: Cephalic presentation, longitudinal lie Maximum Vertical Pocket: 3.6 cm cm 0.0 cm cm 3.8 cm cm 3.8 cm cm BIOMETRY: BPD: 9.2 cm cm; 37 weeks 3 days; 85% HC: 32.5 cmcm; 36 weeks 5 days , 29% AC: 33.2 cm cm; 37 weeks 1 days, 80% FL: 7.1 cm cm; 36 weeks 3 days; 47.0 % % EFW: 3079.0 grams, 6 lbs. 13 oz., 60% FL/AC: 21.4 FL/BPD: 77.1 HC/AC: 1.0 GESTATIONAL AGE: Age by EDC: 36 weeks 3 days JAMES by EDC: 10/27/2023 Age by US: 37 weeks 0 days JAMES by US: 10/23/2023 Suboptimal head measurements secondary to low position of the fetus US/US OB growth IMPRESSION: Normal interval growth Electronically authenticated by: SONJA ZAFAR Date: 10/02/2023 10:02 Dictated By: Sonja Zafar M.D. Signed By: 10/02/23 1005 DD/ 1002 TD/TT: Radial Arm Saw Operator:TBHRadiology, Radiologist, - 10/02/2023 [place] [address] Ultrasound Report Signed Patient: REINA OSWALD MR#: [id number] : 2000 Acct:[id number] Age/Sex: 22 / F ADM Date: 10/02/23 Loc: NOMS Attending Dr: Niharika Mclain D.O. Ordering Physician: Niharika Mclain D.O. Date of Service: 10/02/23 Procedure(s): US OB growth Accession Number(s): [id number] cc: Niharika Mclain D.O.; Physician,Non-Staff [place] [address] Patient Name: REINA OSWALD MRN: [id number] date: 2000 Sex: F Assigned Patient Location: NOMS Current Patient Location: [facility] Accession/Order Number: [id number] Exam Date: 10/02/2023 09:04 Report Date: 10/02/2023 10:02 At the request of: NIHARIKA MCLAIN Procedure: US OB growth EXAMINATION: US OB growth HISTORY: LGA COMPARISON: No relevant comparison available. FINDINGS: Heart Rate: 133.0 bpm Amniotic Fluid Volume: 11.2 cm Number: 1.0 Position: Cephalic presentation, longitudinal lie Maximum Vertical Pocket: 3.6 cm cm 0.0 cm cm 3.8 cm cm 3.8 cm cm BIOMETRY: BPD: 9.2 cm cm; 37 weeks 3 days; 85% HC: 32.5 cmcm; 36 weeks 5 days , 29% AC: 33.2 cm cm; 37 weeks 1 days, 80% FL: 7.1 cm cm; 36 weeks 3 days; 47.0 % % EFW: 3079.0 grams, 6 lbs. 13 oz., 60% FL/AC: 21.4 FL/BPD: 77.1 HC/AC: 1.0 GESTATIONAL AGE: Age by EDC: 36 weeks 3 days JAMES by EDC: 10/27/2023 Age by US: 37 weeks 0 days JAMES by US: 10/23/2023 Suboptimal head measurements secondary to low position of the fetus US/US OB growth IMPRESSION: Normal interval growth Electronically authenticated by: SONJA ZAFAR Date: 10/02/2023 10:02 Dictated By: Sonja Zafar M.D. Signed By: 10/02/23 1005 DD/ 1002 TD/TT: Radial Arm Saw Operator: RIANA [facility]aritan HospitalRadiology Study observation (narrative)NOMS HealthcareUS OB GROWTHOrdered By: Radiologist Radiology on 48-93-5549EVQQ [employer] Work Phone: US OB INCOMPLETE ANATOMYon 60-50-5760Tbkyvwhtb Study observation (narrative)NOMRamesh HealthcareHCG, Quanton 91-88-6550YRG, Fdceb455 mIU/mLHigh<5Ohio Valley Surgical HospitalComment on above:Result Comment: Non-preg premeno <=5 Postmeno <=8 Male <=3 If HCG results do not concur with clinical observations, additional testing to confirm results is recommended.Performed By: #### BHCG #### [facility] [address] [place] [address] Field Installation Technician: Sonja Rasmussen [facility] PAWHUSKAytologyon 19-63-3980Ihsxweqy(NOTE) INTERPRETATION Cervical material, (ThinPrep vial, Imaging-assisted review): Specimen Adequacy: Satisfactory for evaluation. - Endocervical/transformation zone component present. Descriptive Diagnosis: Negative for intraepithelial lesion or malignancy. Help Desk Supervisor: LEVI Schulte(ASCP) Electronically Signed Out ss4/12/21/2022 Source: A: Cervical material, (ThinPrep vial, Imaging-assisted review) Clinical History Z01.419 Routine foam charger exam without abnormal findings High risk HPV DNA testing is requested if the diagnosis is abnormal GYNECOLOGIC CYTOLOGY REPORT Patient Name: REINA OSWALD [facility] Rec: [id number] Path Number: [id number] [facility] ANATOMIC PATHOLOGY [address] [place] [phone] NoHarrison Community HospitalComment on above:Performed By: #### PPPVP #### [facility] [address] [place] [address] Field Installation Technician: Jim Merida MD Vital Signs Date TimeVital SignValuePerforming TiuuqaxzsScilkiua04-44-2168 11:14-0500Body wdnjwy315.72 cmJoce Louis MD Work Phone: [phone] [place], [place] 0508111-08-2025 11:14-0500 Body mass index (BMI) [Ratio]21.6 kg/u6QcywnnrJoce Louis MD Work Phone: [phone] [place], [place] 0508111-08-2025 11:14-0500 Body vjhqatmetws79.9 [degF]Joce Louis MD Work Phone: [phone] [place], [place] 0508111-08-2025 11:14-0500 Body mjiajy77.52 kgJoce Louis MD Work Phone: [phone] [place], [place] 0508111-08-2025 11:14-0500 Diastolic blood pggsojlk55 mm[Hg]Joce Louis MD Work Phone: [phone] [place], [place] 0508111-08-2025 11:14-0500 Heart rate75 /Uriel Louis MD Work Phone: [phone] [place], [place] 0508111-08-2025 11:14-0500 Respiratory rate16 /Uriel Louis MD Work Phone: [phone] [place], [place] 0508111-08-2025 11:14-0500 SaO2% (BldA) [Mass fraction]99 %Joce Louis MD Work Phone: [phone] [place], [place] 0508111-08-2025 11:14-0500 Systolic blood huppccue20 mm[Hg]Joce Louis MD Work Phone: [phone] [place], [place] 0508111-06-2025 09:45-0500 Body mass index (BMI) [Ratio]21.44 kg/w0Doqtp Rayne DO Work Phone: [facility] HospitalHotjndzwfa99-07-4094 09:45-0500Body ivmoqy93.96 kgCoreambar Rayne DO Work Phone: [facility] HospitalIbyptctfsl10-55-7120 09:45-0500Diastolic blood pjesdhwl36 mm[Hg]Niharika Rayne DO Work Phone: [facility] HospitalWxyvqaqnwf22-36-9070 09:45-0500Systolic blood ypdyzkfg892 mm[Hg]Niharika Rayne DO Work Phone: [facility] HospitalEurbtoglbt42-10-5352 10:35-0400Body mass index (BMI) [Ratio]21.59 kg/j0JwthlClifton-Fine Hospital10-17-2025 10:35-0400Body weight 64.41 kgClifton-Fine Hospital10-17-2025 10:35-0400Diastolic blood yjcpjfha29 mm[Hg][facility]10-17-2025 10:35-0400Systolic blood vlscsiji743 mm[Hg][facility]02-14-2024 14:58-0500Body mass index (BMI) [Ratio] 26.73 kg/y4Jalvt Rayne DO Work Phone: [phone] [place], [place] [address]Kvpldjaudy89-98-2184 14:58-0500Body twbply23.74 kgCorey Rayne DO Work Phone: [phone] [place], [place] [address]Xsgykfbqyc94-80-3029 14:58-0500Diastolic blood fvrxiphe00 mm[Hg]Niharika Rayne DO Work Phone: [facility] HospitalTrnmvbbffd60-41-0333 14:58-0500Systolic blood ebwqblwd792 mm[Hg]Niharika Rayne DO Work Phone: [phone]-[facility] HospitalNrnqfaogpk99-71-0046 15:21-0500Body mass index (BMI) [Ratio]26.02 kg/j7Wzhkg Rayne DO Work Phone: [phone] [place], [place] [address]Upcqydrjyi69-26-4527 15:21-0500Body .62 kgCorey Rayne DO Work Phone: [phone] [place], [place] [address]Jhihdhbomh47-96-9970 15:21-0500Diastolic blood qngsivfd18 mm[Hg]Niharika Rayne DO Work Phone: [phone]-[facility] HospitalNkaizxdcsk76-50-8041 15:21-0500Systolic blood vvcovezz037 mm[Hg]Niharika Rayne DO Work Phone: [facility] Encounters Encounter DateEncounter TypeCare ProviderFacilityStart: 07-17-2025 End: 22-99-6438Bumiczjo ReferredDulce Gold BUILDING CONSTRUCTION CONTRACTOR-Lab [facility] Work Phone: Start: 07-17-2025 End: 69-83-0607zdqdstrgvmSjhusml M Hoy MD Work Phone: -[facility] ClydeStart: 07-17-2025 End: 95-26-0914Uccqgmi encounter procedureDulce Gold BUILDING CONSTRUCTION CONTRACTOR-[facility] Work Phone: Start: 07-15-2025 End: 59-37-5116Kdsvme flowsheetCorey Rayne DO Work Phone: [facility] OBGYNStart: 07-15-2025 End: 39-26-0796Rmnknc flowsheetCorey Rayne DO Work Phone: [facility] OBGYNStart: 07-15-2025 End: 29-33-1364Gfthxqjz flow sheetCorey Rayne DO Work Phone: [facility] [place] OBGYNComment on above:First trimester ([facility]); 10 weeks gestation of ([facility])Start: 07-15-2025 End: 88-03-3113zoioinnbbfQCODF FAZIONot AvailableStart: 06-25-2025 End: 94-93-7171ejynptixczWhzpi Nurse Noms Bcp ObNOMS Yuko OBGYNComment on above:GA: 7q0wBnlfl: 10-23-2023 End: 70-93-6591Loozlfec flow sheetCorey Rayne DO Work Phone: [facility] BCP OBComment on above:Third trimester Start: 10-16-2023 End: 92-42-0883Krziyxmh flow sheetCorey Rayne DO Work Phone: [facility] BCP OBComment on above:Third trimester Start: 10-02-2023 End: 54-38-6172Jqolwjnsx Result EncounterCorey Rayne DO Work Phone: noms External Department UnsolicitedStart: 10-02-2023 End: 77-38-2485Hyzakfgub Result EncounterCorey Rayne DO Work Phone: noms External Department UnsolicitedStart: 07-08-2023 End: 45-55-7503Emxwgmrad Result EncounterCorey Rayne DO Work Phone: noms External Department UnsolicitedStart: 07-08-2023 End: 16-52-6731Quxjoidzn Result EncounterCorey Rayne DO Work Phone: noms External Department UnsolicitedStart: 02-19-2023 End: 96-03-4054pdwqdvpxrlIVQNTUC [facility] HospitalStart: 12-11-2022 End: 53-95-7006ajpqppnkdwKEBWQY W HEDGESMercy Orogrande HospitalStart: 12-11-2022 Encounter for gynecological examination (general) (routine) without abnormal findingsJUSTEEN KURTMccullough-Hyde Memorial Hospitalshaquille Orogrande HospitalStart: 12-11-2022 End: 51-22-9596Wlqpccj encounter procedureJordan Lomax MD Work Phone: mwhz LaboratoryStart: 12-11-2022 End: 69-18-9704Lyqqzcardp hospital visit by physicianJordan Lomax MD Work Phone: mwhz LaboratoryComment on above:Encounter for well woman exam with routine gynecological exam Procedures DateProcedureProcedure DetailPerforming ClinicianStart: 90-33-7247Nhnri dip stick/tablet rgnt non-auto w/o micrscpCorey Rayne DO Work Phone: Start: 06-25-2025 End: 95-12-0482Unoah dip stick/tablet rgnt non-auto w/o micrscpCorey Rayne DO Work Phone: Start: 30-88-0217Pprrb dip stick/tablet rgnt non-auto w/o micrscpCorey Rayne DO Work Phone: Start: 16-62-8016Gltyw dip stick/tablet rgnt non-auto w/o micrscpCorey Rayne DO Work Phone: Start: 15-89-6221XW OB GROWTHCorey Rayne DO Work Phone: Start: 32-57-8359SZ OB INCOMPLETE ANATOMYCorey Rayne DO Work Phone: Plan of Treatment DateCare ActivityDetailAuthorStart: 07-28-2025 End: 43-60-3031Jnrriig encounter fkcsxnxip97/19/2025 2:40 PM EST Routine [facility] [address] [place], [id number] Niharika Mclain, DO [address] [place] [address] [facility] OBGYNStart: 07-17-2025 Bacteria identified in Urine by CultureUrine [facility] Mentor Hospitaltart: 64-52-9293Pytuj [facility] - Andersontart: 07-15-2025 End: 26-58-2196Jmkevxr encounter /06/2025 9:40 AM EST Routine [facility] [address] [place], [id number] Niharika Mclain, DO [address] [place] [address] ArrivedNOMS Yuko OBGYNComment on above:ArrivedStart: 06-25-2025 End: 10-43-6100AHK/RhABO/Rh Lab Routine Missed menses , unspecified gestational age ([facility]) Expected: 06/25/2025 (Approximate), Expires: 06/25/2026[facility] HealthcareComment on above:Expected: 06/25/2025 (Approximate), Expires: 06/25/2026Start: 06-25-2025 End: 92-19-8700Onsrr type and Indirect antibody screen panel - BloodType and screen Lab Routine Missed menses , unspecified gestational age ([facility]) Expected: 06/25/2025 (Approximate), Expires: 06/25/2026[facility] Healthcare Comment on above:Expected: 06/25/2025 (Approximate), Expires: 06/25/2026Start: 06-25-2025 End: 41-71-2494Vufym of abuse panel - Urine by Screen methodRapid drug screen, urine Lab Routine , unspecified gestational age ([facility]) Encounter for supervision of normal first in first trimester ([facility]) Expected: 06/25/2025 (Approximate), Expires: 06/25/2026[facility] HealthcareComment on above: Expected: 06/25/2025 (Approximate), Expires: 06/25/2026Start: 06-15-2025 End: 96-79-6684EM Pelvis transvaginalUS OB transvaginal Imaging Routine Missed menses Positive urine test ([facility]) Expected: 06/15/2025, Expires: 09/15/2025[facility] Healthcare Work Phone: comment on above:Expected: 06/15/2025, Expires: 09/15/2025Start: 10-28-2023 End: 64-46-5238Aampfxo encounter ktefgovfq84/19/2024 9:00 AM EST Routine [facility] [address] [place] [place] [id number] Niharika Mclain, DO [address] [place] [address] [facility] BCP OBStart: 10-23-2023 End: 42-65-3700Vmxdafa encounter icrcbtnhj29/14/2024 3:00 PM EST Routine [facility] [address] [place] [phone] Niharika Mclain, DO [address] [place], [place] [id number] Third trimester pregnancyNOMS BCP OB Comment on above:Third trimester pregnancyStart: 75-61-9420Kzjafzhkm vaccination Flu vaccine (Season Ended)[facility]: 74-93-0610Ismiefxda for malignant neoplasm of cervixPap smearSentara CarePlex Hospital: 2017 DTaP/Tdap/Td vaccine (1 - Tdap)DTaP/Tdap/Td vaccine (1 - Tdap)[facility]: 36-47-1724Dlpnoedob C screeningHepatitis C screenSentara CarePlex Hospital: 21-03-0517Eosiiznhr for Chlamydia trachomatisChlamydia/GC screenSentara CarePlex Hospital: 90-33-9589ENH screeningHIV [facility]: 23-90-1607Rtuenlwziz ScreenDepression ScreenSentara CarePlex Hospital: 83-65-2418NGY vaccine (1 - 2-dose series)HPV vaccine (1 - 2-dose series)[facility]: 32-73-6904Cohpndmez vaccine (1 of 2 - 2- dose childhood series)Varicella vaccine (1 of 2 - 2-dose childhood series)[facility]: 96-10-3405JERPL-19 Vaccine (#1)COVID-19 Vaccine (#1) [facility]Bacteria identified in Urine by CultureUrine culture Microbiology Routine Missed menses Ordered: 06/25/2025[facility] HospitalComment on above:Ordered: 06/25/2025BC W Auto Differential panel - BloodCBC and differential Lab Routine Missed menses , unspecified gestational age ([facility]) Ordered: 06/25/2025[facility] HospitalComment on above:Ordered: 06/25/2025 End: 27-59-6169Ybibvysjyclpa procedure, preparation of smear, genital sourcePAP SMEAR Lab Routine Encounter for well woman exam with routine gynecological exam 1 Occurrences starting 12/11/2022 until 12/11/2022[facility] Work Phone: Comment on above:1 Occurrences starting 12/11/2022 until 12/11/2022Hemoglobin A1c/Hemoglobin.total in BloodHemoglobin A1c Lab Routine Missed menses , unspecified gestational age ([facility]) Ordered: 06/25/2025[facility] HealthcareComment on above:Ordered: 06/25/2025Hepatitis B virus surface Ag [Presence] in Serum or Plasma by ImmunoassayHepatitis B surface antigen Lab Routine Missed menses , unspecified gestational age [facility]) Ordered: 06/25/2025[facility] HealthcareComment on above:Ordered: 06/25/2025 Hepatitis C virus Ab [Presence] in Serum or Plasma by ImmunoassayHepatitis C antibody Lab Routine Missed menses , unspecified gestational age ([facility]) Ordered: 06/25/2025[facility] HealthcareComment on above:Ordered: 06/25/2025 HIV-1/HIV-2 antigen/antibody combination immunoassayHIV-1 and HIV-2 antibodies Lab Routine Missed menses , unspecified gestational age ([facility]) Ordered: 06/25/2025[facility] HealthcareComment on above:Ordered: 06/25/2025Reagin Ab [Presence] in Serum by RPRRPR Lab Routine Missed menses , unspecified gestational age ([facility]) Ordered: 06/25/2025[facility] HealthcareComment on above: Ordered: 06/25/2025Rubella antibody, IgGRubella antibody, IgG Lab Routine Missed menses , unspecified gestational age ([facility]) Ordered: 06/25/2025[facility] HealthcareComment on above:Ordered: 06/25/2025US Pelvis transvaginalUS OB transvaginal Imaging Routine Missed menses Positive urine test ([facility]) 0:23 AM [facility] Payers DatePayer CategoryPayerPolicy [id number] Health InsuranceMEDICAL MUTUAL [id number] 12-57-4769KdiyGallup Indian Medical CenterBS Member Subscriber Plan / Payer (Effective 2015-2024) Name: Margret Reina Relation to Subscriber: Child Name: MANISH ROSALES Date ofBirth: 1972 Address: [id number] [place] [address] Payer ID: Not on file Type: Not on file Address: [address] [place] [id number] UnknownGATEWAY REHABILITATION HOSPITALBS [id number] 2015-Present [phone] [address] [place] [id number] [id number] [id number] [id number] 2..[id number] [id number] [id number] Social History DateTypeDetailFacilityStart: 12-11-2022 End: 74-23-0247Fuixgka smoking status NHISNever smoked tobaccoWorld of Good Phone: start: 39-36-8668Moeqkpx use and exposureSmokeless tobacco non-userWorld of Good Phone: start: 36-49-9187Ykwisut intakeCurrent drinker of alcohol (finding)[employer] Phone: start: 76-57-5998Arwnxwc SDOH Physical Activity DPW5 [employer] Phone: start: 69-88-6471Ovbwbgj SDOH Physical Activity MPS4 [employer] Phone: start: 57-77-9730Paimpfw SDOH IPV Qgqq5ESM [employer] Phone: start: 48-88-1168Wduppgn SDOH Food Kmqcj3SXV [employer] Phone: start: 92-55-2716Trvnmum CommentsocialWorld of Good Phone: start: 53-27-0339Rkk Assigned At BirthNot on [employer] Work Phone: Tobacco smoking status NHISTobacco smoking consumption unknownNOMS HealthcareStart: 45-45-8998NhwixukcjIJRV HealthcareGender identity Not on fileNOMS HealthcareStart: 61-47-5390AigNpaneyIHLQ HealthcareStart: 08-03-2023 End: 65-64-3642Agwcdsxb to SARS-CoV-2 (event)Not sureNOMS HealthcareSexFemale (finding)[facility] Hospitaltart: 56-93-7946Wba Assigned At [facility] Clinical Notes 10-16-2023 to 07-17-2025 Note Date & KppzVkufGqedyfyc78-86-9190 Evaluation note* Diagnosis Onset Date Resolution Status Admit Date Acute UTI acuteNovember 2024 11:06am [facility] Work Phone: 1(836) 658-489611-06-2025 History of Present illness Narrative* Preeti Mcdonough LPN - 07/15/2025 9:40 AM EST Reason for [...] nursing note reviewed. Exam conducted with a frame stylist present. Vitals: Estimated body mass index is 21.44 kg/m as calculated from the following: Height as of 03/29/23: 5' 8 . Weight as of this encounter: 141 lb. BP: 110/74 Patient's last menstrual period was 05/01/2025. Assessment/Plan ICD-10-CM 1. First trimester ([facility]) Z34.91 POCT urinalysis dipstick manually resulted 2. 10 weeks gestation of ([facility]) Z3A.10 New OB: Patient presents today for [...] or undercooked meat, and [facility]. Patient has been consulted regarding any further [...] by Preeti Mcdonough LPN on behalf of: Niharika Mclain DO documented in this encounterReynolds County General Memorial HospitalNhgsfzjwyh77-36-3118 History of Present illness Narrative* Diamond Daugherty MA - 06/25/2025 10:30 AM EDT Reason for Appointment: Patient ID: Reina Oswald is a 24 y.o. female who presents for Amenorrhea Patient presents today for a Nurse OB Intake appointment. Patient is 7w6d with a Estimated Date of Delivery: 02/05/26 OB History Para Term AB Living 2 1 1 1 SAB IAB Ectopic Multiple Live Births 1 # Outcome Date GA Lbr Joao/2nd Weight Sex Type Anes PTL Lv 2 Current 1 Term 10/27/23 40w0d F Vag-Spont MARIANELA Current Medications: has a current medication list [...] No pertinent surgical history. No Known Allergies Vitals: Estimated body mass index is 21.59 kg/m as calculated from the following: Height as of 03/29/23: 5' 8 . Weight as of this encounter: 142 lb. BP: 110/70 Patient's last menstrual period was 05/01/2025. Assessment/Plan Diagnoses and all orders for this visit: Missed menses - US OB transvaginal; Future - Type and screen; Future - ABO/Rh; Future - CBC and differential - Hemoglobin A1c - RPR - Rubella antibody, IgG - Hepatitis B surface antigen - Hepatitis C antibody - HIV-1 and HIV-2 antibodies - Urine culture - POCT , urine manually resulted - POCT urinalysis dipstick manually resulted Positive urine test ([facility]) - US OB transvaginal; Future Amenorrhea 7 weeks gestation of ([facility]) First trimester ([facility]) , unspecified gestational age ([facility]) - Type and screen; Future - ABO/Rh; Future - CBC and differential - Hemoglobin A1c - RPR - Rubella antibody, IgG - Hepatitis B surface antigen - Hepatitis C antibody - HIV-1 and HIV-2 antibodies - Rapid drug screen, urine; Future Encounter for supervision of normal first in first trimester ([facility]) - Rapid drug screen, urine; Future Nurse Note: Pt unsure of Stanton billion to one. Pt was advised to have both and Stanton labs done at the same time if she desires to know gender. PVU. Pt has some nausea however, denies any medication. Follow Up: Patient is to have labs drawn at directed and return to office for initial OB appointment with provider. Patient may call office as needed with any concerns or questions. Nurse Visit Completed by: Diamond Daugherty MA documented in this encounterReynolds County General Memorial [id number] History of Present illness Narrative* Mey Beebe, OUTSIDE SALES ADVERTISING EXECUTIVE - 10/23/2023 3:00 PM EST Reason for Appointment: Patient ID: Reina [...] nursing note reviewed. Exam conducted with a frame stylist present. Vitals: Estimated body mass index is [...] of: Niharika Mclain DO documented in this encounterReynolds County General Memorial HospitalHohhlzdeph45-35-9473 History of Present illness Narrative* Mey Beebe LPN - 10/16/2023 3:00 PM EST Reason for Appointment: Patient ID: Reina [...] nursing note reviewed. Exam conducted with a frame stylist present. Vitals: Estimated body mass index is [...] of: Niharika Mclain DO documented in this encounterNOMS HealthcareEvaluation note* Diagnosis Encounter for well woman exam with routine gynecological exam documented in this encounter [facility] [employer] Phone: evaluation note* Diagnosis Third trimester state, incidental Third trimester state, incidental documented in this encounter [facility] HealthcareEvaluation note* Diagnosis Third trimester state, incidental documented in this encounter [facility] HealthcareEvaluation note* Diagnosis Missed menses Positive urine test ([facility]) Amenorrhea Absence of menstruation 7 weeks gestation of ([facility]) First trimester ([facility]) state, incidental , unspecified gestational age ([facility]) Encounter for supervision of normal first in first trimester ([facility]) documented in this encounter [facility] HealthcareEvaluation note* Diagnosis Onset Date Resolution Status Admit Date Dysuria noneactiveNov2024 11:06am [facility] Work Phone: Evaluation note* Diagnosis First trimester ([facility]) state, incidental 10 weeks gestation of ([facility]) documented in this encounter [facility] HealthcareReason for referral (narrative)No reason for referral information availableBethesda North Hospital Work Phone: Summary Purpose Family History No Family History Records FoundNo Family History Records FoundNo Family History Records Found Advance Directives Advance Directive Response Recorded Date/ Time Advance Directives No January 22 2:24pm Chief Complaint and Reason for Visit Chief Complaint Admit Date Poss uti July 17, 2025 1 1:06am Reason for Visit Admit Date Acute UTI July 17, 2025 1 1:06am Reason for Visit Admit Date Dysuria July 17, 2025 1 1:06am Additional Source Comments Care Teams (unrecognized sec tion and content) Team MemberRelationshipSpecialtyStart DateEnd Date Jordan Lomax MD [address] [id number] PCP - GeneralInternal Medicine11/19/22Team MemberRelationshipSpecialtyStart Date End Date Jordan Lomax MD [address] [place], [place] [phone] PCP - GeneralInternal Medicine03/06/23am MemberRelationshipSpecialtyStart Date End Date Jordan Lomax MD [address] [place], [place] [phone] PCP - GeneralInternal Medicine03/06/23am MemberRelationshipSpecialtyStart Date End Date Jordan Lomax MD [address] [place], [place] [phone] PCP - GeneralInternal Medicine03/06/23Team MemberRelationshipSpecialtyStart Date End Date Jordan Lomax MD [address] [place] [address] PCP - GeneralB[facility]cotillo Medical Centernal Medicine03/06/23Team MemberRelationshipSpecialtyStart Date End Date Jordan Lomax MD [address] [place] [address] PCP - GeneralBanner Ocotillo Medical Centernal Medicine03/06/23 Team Status: Active Member Role/Relationship Status Dates Joce Louis MD Primary Care Provider Active Team Status: Inactive Member Role/Relationship Status Dates Joce Louis MD Primary Care Provider Active Start: July 17, 2025 End: July 17, 2025Kiki Cerda ProviderActiveStart: July 17, 2025 End: July 17, 2025 Team Status: Inactive Member Role/Relationship Status Dates Joce Louis MD Primary Care Provider Active Start: July 17, 2025 End: July 17, 2025Kiki Cerda ProviderActiveStart: July 17, 2025 End: July 17, 2025 Team Status: Inactive Member Role/Relationship Status Dates Dulce Leigh APRN Attending Provider Active Start: July 17, 2025 End: July 17, 2025Team MemberRelationshipSpecialtyStart DateEnd Date Jordan Lomax MD [address] [place] [address] PCP - GeneralBanner Ocotillo Medical Centernal Medicine03/06/23 INFORMATION SOURCE (unrecogn ized section and content) DATE CREATED AUTHOR 02/20/2023 [facility] DATE CREATED AUTHOR AUTHOR'S ORGANIZ ATION 07/17/2025 [facility] DATE CREATED AUTHOR AUTHOR'S ORGANIZ ATION 07/19/2025 [facility] Reason for Visit (unrecogniz ed section and content) ReasonCommentsRoutine VisitReasonCommentsAmenorrhea Goals (unrecognized section and content) Goals may be documented in a n alternate sectionGoals may be documented in an alternate section FOR RECORDS PERTAINING TO PATIENTS WHO ARE [...] BE BASED ON THE PRIMARY CLINICAL RECORDS. [facility]. provides no warranty or guarantee of the accuracy or completeness of information in this document.
[2025-07-22 16:51] LABS: Hematocrit 37.7 % (36.0-48.0); Hemoglobin 13.1 g/dL (12.0-16.0); Immature Granulocytes Abs Auto 0.03 10^3/uL (0.00-0.03); Immature Granulocytes Pct Auto 0.3 % (0.0-0.5); Lymphocytes Absolute Auto 2.4 10^3/uL (1.2-3.8); Mean Corpuscular HGB Conc 34.7 g/dL (29.9-35.2); Mean Corpuscular Hemoglobin 31.0 pg (26.7-34.0); Mean Corpuscular Volume 89.1 fL (81.0-99.0); Platelet Count 337 10^3/uL (150-450); Red Blood Count 4.23 10^6/uL (4.20-5.40); White Blood Count 10.4 10^3/uL (4.0-11.0)
[2025-07-22 17:15] LABS: Cannabinoid Screen Urine NEGATIVE (NEGATIVE); Methamphetamines Screen Urine NEGATIVE (NEGATIVE); Tricyclic Antidepressant Urine NEGATIVE (NEGATIVE)
[2025-07-24 06:08] LABS: Rubella Antibodies, IgG 3.13 index (Immune >0.99)
[2025-07-24 13:09] LABS: Rapid Plasma Reagin, Quant Non Reactive titer (NonRea<1:1)
== END 2025-07-22 16:03 | disposition home or self-care (01) ==
LOC: LAB 16:05
PROVIDERS: PCP Family Medicine; Visit Provider Obstetrics & Gynecology
DX: Z34.01 Encounter for supervision of normal first pregnancy, first trimester (principal); N92.6 Irregular menstruation, unspecified
CPT/HCPCS: 36415; 80307; 83036; 85025; 86592; 86762; 86803; 86850; 86900; 86901; 87086; 87340; 87389

== ENCOUNTER 2025-08-25 21:06 | Outpatient (REF) | payer OTHER, SELFPAY ==
--- OUTSIDE RECORDS SUMMARY | 2025-08-25 15:00 | XMS_ITS | Encounter Summary ---
Author Organization [facility] Address [address] [place] [address] Care Team Providers Care Combat Control Name Role Phone Jordan Lomax MD Primary Care Provider [phone] Reason for Visit * ReasonCommentsRoutine Visit Encounter Details DateTypeDepartmentCare Team (Latest Contact Info)Qshziodbolg53/17/2025 3:00 PM ESTRoutine [facility] [address] [place] [address] Mehdi Mclain DO [address] [place], [facility]11 Well woman exam with routine gynecological exam; 16 weeks gestation of ([facility]); Exposure to STD; Second trimester ([facility]); Need for maternal serum alpha-protein (MSAFP) screening ([facility]); Screening, , for anatomic survey ([facility]) Social History Tobacco UseTypesPacks/DayYears UsedDateSmoking Tobacco: Never Assessed Estimated Date of UaistkdvIehdhdldBaa81/30/2026Based on last menstrual period of 05/01/2025Sex and Gender InformationValueDate RecordedSex Assigned at BirthNot on fileLegal JcrBjwamd46/28/2023 2:17 PM EDTGender IdentityNot on fileSexual OrientationNot on filedocumented as of this encounter Last Filed Vital Signs Vital SignReadingTime TakenCommentsBlood Xbtqpjzm109/6808/25/2025 3:51 PM EST Pulse--Temperature--Respiratory Rate--Oxygen Saturation--Inhaled Oxygen Concentration--Qavvfb42 kg (150 lb)08/25/2025 3:51 PM ESTHeight--Body Mass Index 22.8107/ 11:04 AM EDTdocumented in this encounter Plan of Treatment DateTypeDepartmentCare Team (Latest Contact Info)Uyaghjlqpda22/15/2026 8:30 AM ESTAncillary Procedure [facility] [address] [place] [address] 09/23/2025 9:30 AM ESTRoutine [facility] [address] [place] [address] Emeli Chandler, SUPERVISOR/PORT DIRECTOR [address] [place] [address] NameTypePriorityAssociated DiagnosesOrder ScheduleSURESWAB(R) ADVANCED VAGINITIS PLUS, TMAPathology and CytologyRoutine Exposure to STD Ordered: 08/25/2025HLAMYDIA TRACHOMATIS (GENITO/STI)LabRoutine Exposure to STD Ordered: 08/25/2025Neisseria gonorrhea DNA probe, directLabRoutine Exposure to STD Ordered: 08/25/2025Pap SmearPathology and CytologyRoutine Well woman exam with routine gynecological exam Ordered: 08/25/2025US OB 14+ weeks anatomy scanImagingRoutine Screening, , for anatomic survey ([facility]) Expected: 08/25/2025, Expires: 6Alpha fetoprotein, maternalLabRoutine Need for maternal serum alpha-protein (MSAFP) screening ([facility]) Expected: 08/25/2025 (Approximate), Expires: 08/25/2026documented as of this encounter Procedures Procedure NamePriorityDate/TimeAssociated DiagnosisCommentsPOCT URINALYSIS CWMEUECCFaltwkh85/17/2025 3:52 PM EST 16 weeks gestation of ([facility]) documented in this encounter Results * POCT urinalysis dipstick manually resulted (08/25/2025 3:52 PM EST)Component ValueRef RangeTest MethodAnalysis TimePerformed AtPathologist SignatureColor, UAYellowClarity, UAClearGlucose, UANegativeNegative - 1999(110) ++++ mg/dL Bilirubin, UANegativeNegative - 4(70) +++ mg/dLKetones, UANegativeNegative - 160(16) ++++ mg/dLSpec Grav, UA1.0201 - 1.03Blood, UANegativeNegative - 50 Sandor/mcLpH, UA6.05 - 9Protein, UANegativeNegative - 2000(20) ++++ mg/dL Urobilinogen, UA1.00.2 - 12 mg/dLLeukocytes, UANegativeNegative - 500+++ David/mcLNitrite, UANegativeNegative - PositiveSpecimen (Source)Anatomical Location / LateralityCollection Method / VolumeCollection TimeReceived Time Urine08/25/2025 3:52 PM EST Narrative Authorizing ProviderResult TypeResult StatusCorey Rayne DOPOINT OF CARE TEST ENTER/EDIT ORDERABLESFinal Result documented in this encounter Visit Diagnoses Diagnosis Well woman exam with routine gynecological exam Routine gynecological examination 16 weeks gestation of ([facility]) Exposure to STD Second trimester ([facility]) state, incidental Need for maternal serum alpha-protein (MSAFP) screening ([facility]) Screening, , for anatomic survey ([facility]) Encounter for anatomic survey documented in this encounter Care Teams Team MemberRelationshipSpecialtyStart DateEnd Date Jordan Lomax MD [address] [place] [address] PCP - GeneralInternal Medicine03/06/23documented as of this encounter
--- OUTSIDE RECORDS SUMMARY | 2025-08-25 21:10 | XMS_ITS | Patient Health Record ---
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 Name Role Phone Shana Cee Primary Care Provider DanielambarNorris [phone] Allergies No Known Allergies Results Component Value Reference Range Notes CBC AUTO DIFF Reviewed date:04/27/2025 07:24:08 PM Interpretation: Performing Lab: Notes/Report: [facility] , White Blood Count 6.5 4.0-11.0 10 3/uL Red Blood Count4.574.20-5.40 10 6/tYOsanxthful76.012.0-16.0 g/qNUdbkjcpaol84.2 36.0-48.0 %Mean Corpuscular Zgvgra63.281.0-99.0 fLMean Corpuscular Hemoglobin 30.626.7-34.0 pgMean Corpuscular HGB Conc34.029.9-35.2 g/dLRed Cell Distribution Width11.911.0-15.0 %Platelet Dmvea247127-123 10 3/uLMean Platelet Kucrhe22.19.5- 13.5 fLNeutrophils Percent Auto53.443.0-75.0 %Lymphocytes Percent Auto30.020.5- 60.0 %Monocytes Percent Auto8.31.7-12.0 %Eosinophils Percent Auto7.40.9-7.0 % Basophils Percent Auto0.60.2-2.0 %Immature Granulocytes Pct Auto0.30.0-0.5 % Neutrophils Absolute Auto3.51.4-6.5 10 3/uLLymphocytes Absolute Auto2.01.2-3.8 10 3/uLMonocytes Absolute Auto0.50.3-0.8 10 3/uLEosinophils Absolute Auto0.50.0- 0.7 10 3/uLBasophils Absolute Auto0.00.0-0.1 10 3/uLImmature Granulocytes Abs Auto0.020.00-0.03 10 3/uLPerforming Lab:see noteML - [facility] LB PROF CHEM 8 (BAS METB) Reviewed date:05/04/2025 07:51:30 PM Interpretation: Performing Lab: Notes/Report: [facility] ,Jteyhf611776-730 mmol/LPotassium4.33.5-5.1 mmol/PMwtffhgt88362-986 mmol/LCarbon Ewjpmzu14.621.0-32.0 mmol/LAnion Gap12.2Ahjwfnq0731-407 mg/dLBlood Urea Nitrogen 21.07.0-18.0 mg/dLCreatinine0.910.55-1.02 mg/dLEstimated GFR ( Diamond>60 >=60 mL/min/1.73m 2Estimated GFR (Non- Shelley>60>=60 mL/min/1.73m 2BUN Creatinine Ratio23.0Nxjinde3.08.5-10.1 mg/dLPerforming Lab:see noteML - [facility] LBCBC AUTO DIFF Reviewed date:07/22/2025 05:50:05 PM Interpretation: Performing Lab: Notes/Report: [facility] ,White Blood Count10.44.0-11.0 10 3/uLRed Blood Count4.234.20-5.40 10 6/uL Ebvpgoqnow04.112.0-16.0 g/sGUgzyggttpt41.736.0-48.0 %Mean Corpuscular Cyvhyw88.1 81.0-99.0 fLMean Corpuscular Nepbxazrzj80.026.7-34.0 pgMean Corpuscular HGB Conc 34.729.9-35.2 g/dLRed Cell Distribution Width12.311.0-15.0 %Platelet Crmjy148 150-450 10 3/uLMean Platelet Volume9.39.5-13.5 fLNeutrophils Percent Auto65.4 43.0-75.0 %Lymphocytes Percent Auto23.120.5-60.0 %Monocytes Percent Auto4.91.7- 12.0 %Eosinophils Percent Auto6.00.9-7.0 %Basophils Percent Auto0.30.2-2.0 % Immature Granulocytes Pct Auto0.30.0-0.5 %Neutrophils Absolute Auto6.81.4-6.5 10 3/uLLymphocytes Absolute Auto2.41.2-3.8 10 3/uLMonocytes Absolute Auto0.50.3-0.8 10 3/uLEosinophils Absolute Auto0.60.0-0.7 10 3/uLBasophils Absolute Auto0.00.0- 0.1 10 3/uLImmature Granulocytes Abs Auto0.030.00-0.03 10 3/uLPerforming Lab:see noteML - [facility] LBDRUG SCREEN RAPID (URINE) Reviewed date:07/22/2025 05:50:05 PM Interpretation: Performing Lab: Notes/Report: [facility] ,Cannabinoid Screen UrineNEGATIVENEGATIVEPhencyclidine Screen UrineNEGATIVE NEGATIVECocaine Screen UrineNEGATIVENEGATIVEMethamphetamines Screen Urine NEGATIVENEGATIVEOpiate Screen UrineNEGATIVENEGATIVEAmphetamine Screen Urine NEGATIVENEGATIVEBenzodiazepines Screen UrineNEGATIVENEGATIVETricyclic Antidepressant UrineNEGATIVENEGATIVEMethadone Screen UrineNEGATIVENEGATIVE Barbiturates Screen UrineNEGATIVENEGATIVEOxycodone Screen UrineNEGATIVENEGATIVE Buprenorphine Screen UrineNEGATIVENEGATIVE MTD (Methadone): 200 ng/mL PCP (Phencyclidine): 25 ng/mL BUP (Buprenorphine): 10 ng/mL THC (Cannabinoids): 50 ng/mL mAMP (Methamphetamine): 500 ng/mL OXY (Oxycodone): 100 ng/mL AWA (Cocaine): 150 ng/mL BAR (Barbiturates): 200 ng/mL FOLLOWS: BZO (Benzodiazepines): 150 ng/mL DRUG CLASS TEST SYSTEM CUT-OFF CONCENTRATIONS ARE OPI (Opiates): 100 ng/mL TCA (Trycyclic Antidepressants): 300 ng/mL AMP (Amphetamine): 500 ng/mL Performing Lab:see noteML - [facility] LBGLYCOHEMOGLOBIN A1C Reviewed date:07/22/2025 05:50:05 PM Interpretation: Performing Lab: Notes/Report: [facility] ,Glycohemoglobin A1C5.44.5-6.2 % ADA RECOMMENDED LIMIT 4.0 - 6.0 ADA THERAPEUTIC TARGET < 7.0 > 7.0 ACTION SUGGESTED Estimated Average Kvyfoxo491Jikpdmjfgk Lab:see noteML - [facility] LB Type and Screen Reviewed date:07/22/2025 06:15:07 PM Interpretation: Performing Lab: Notes/Report: [facility] ,Blood TypeA PositiveAntibody ScreenNEGATIVEUrine Culture, Routine Reviewed date:07/27/2025 06:42:54 PM Interpretation: Performing Lab: Notes/Report: [facility] ,Urine Culture, RoutineSee Below For Report Urine Culture, Routine Isolated O:LACTSP Urine Culture, RoutineSpecimen has been received and testing has been initiated. Urine Culture, Routine Isolated O:LACTSP Urine Culture, RoutineOrganism: Lactobacillus species : Urine Culture, Routine Isolated O:LACTSP Urine Culture, RoutineSusceptibility not normally performed on this organism. Urine Culture, Routine Isolated O:LACTSP Urine Culture, Zgvzlgk30,000-100,000 colony forming units per mL Urine Culture, Routine Isolated O:LACTSP Urine Culture, RoutineLactobacillus species Urine Culture, Routine Isolated O:LACTSP Urine Culture, RoutineSee Below For Report Urine Culture, Routine Isolated O:LACTSP Urine Culture, RoutinePerformed at: - [facility] [place] Urine Culture, Routine Isolated O:LACTSP Urine Culture, [address] [place], [place] [id number] Urine Culture, Routine Isolated O:LACTSP Urine Culture, RoutineLab Director: Clive Padilla PhD, Phone: [phone] Urine Culture, Routine Isolated O:LACTSP Performing Lab:see note SEE REPORT - 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 Id information not found for OBX-specific patient financial rep legend LC - [facility] LB TSH Reviewed date:04/27/2025 08:50:10 PM Interpretation: Performing Lab: Notes/Report: [facility] ,Thyroid Stimulating Hormone2.4960.358-3.740 uIU/mLPerforming Lab:see noteML - [facility] LBPROF 14(COMP METB) Reviewed date:04/27/2025 08:50:10 PM Interpretation: Performing Lab: Notes/Report: [facility] ,Lkownl382336-626 mmol/LPotassium4.23.5-5.1 mmol/BUhwzpprs56992-278 mmol/LCarbon Jehwtyo44.121.0-32.0 mmol/LAnion Gap11.0Wsxaxtb1878-601 mg/dLBlood Urea Nitrogen 17.07.0-18.0 mg/dLCreatinine1.060.55-1.02 mg/dLEstimated GFR ( Diamond>60 >=60 mL/min/1.73m 2Estimated GFR (Non- Shelley>60>=60 mL/min/1.73m 2BUN Creatinine Ratio16.7Djoknht2.98.5-10.1 mg/dLBilirubin Total0.40.2-1.0 mg/dL Aspartate Amino Uydgcufhbod9490-07 U/LAlanine Aqttqaeqguzvujlh5745-79 U/L Alkaline Raydqvutdwc4165-432 U/LTotal Protein7.76.4-8.2 g/dLAlbumin Level4.33.4- 5.0 g/dLGlobulin3.4Albumin Globulin Ratio1.3Performing Lab:see note - [facility] LBLIPID PROFILE Reviewed date:04/27/2025 08:50:10 PM Interpretation: Performing Lab: Notes/Report: [facility] ,Oqwvgngskdgaj87<=150 mg/xBRskxfoefafu040<=200 mg/dLHDL Kbopluaavzs2828-43 mg/dL > or =60 mg/dl - LOW CARDIOVASCULAR RISK <40 mg/dl - HIGH CARDIOVASCULAR RISK LDL Cholesterol Nbaxiikpun17.6 <100 mg/dl OPTIMAL >190 mg/dl VERY HIGH 130-159 mg/dl BORDERLINE HIGH 160-189 mg/dl HIGH 100-129 mg/dl NEAR OR ABOVE OPTIMAL VLDL BYUYXBKKMFR21.4Chol HDL Ratio2.8 7.1 - 11.0 MODERATE RISK 4.4 - 7.1 AVERAGE RISK >11.0 HIGH RISK 3.3 - 4.4 LOW RISK Performing Lab:see note - [facility] LBHCV Antibody RFX to Quant PCR Reviewed date:07/24/2025 12:54:27 PM Interpretation: Performing Lab: Notes/Report: [facility] ,HCV AbNon ReactiveNon ReactiveInterpretation:Comment. Not infected with HCV unless early or acute infection is Performed at: [address] [phone] infection. suspected (which may be delayed in an immunocompromised individual), or other evidence exists to indicate HCV Shell Grader: Clive Padilla PhD, Phone: [phone] Performing [facility] VANDANARUBELLA AB IGG Reviewed date:07/24/2025 12:54:27 PM Interpretation: Performing Lab: Notes/Report: [facility] ,Rubella Antibodies, IgG3.13Immune >0.[address] [place] [address] [phone] Immune >0.99 Shell Grader: Clive Padilla PhD, Phone: [phone] Equivocal 0.90 - 0.99 Performed at: [facility] Non-immune <0.90 Performing Lab:[facility] VANDANAHBsAg Screen Reviewed date:07/24/2025 01:13:20 PM Interpretation: Performing Lab: Notes/Report: [facility] ,HBsAg ScreenNegativeNegative [address] [place] [phone] Shell Grader: Clive Padilla PhD, Phone: [phone] Performed at: [facility] Performing Lab:[facility] VANDANARapid Plasma Reagin, Quant Reviewed date:07/24/2025 01:13:20 PM Interpretation: Performing Lab: Notes/Report: [facility] ,Rapid Plasma Reagin, QuantNon ReactiveNonRea<1:1 titer Performed at: [facility] treponema-specific assay should be utilized, such as Please Note: This test does not meet current guidelines for screening and diagnosis of syphilis. This test is treated for syphilis infection. To screen for syphilis RPR and Confirmatory Treponema pallidum Antibodies infection, a reflex cascade that includes both RPR and a (306572). [address] [place] [phone] Treponema pallidum (Syphilis) Screening [place] (656222) or intended for following treatment response in patients being Shell Grader: Clive Padilla PhD, Phone: [phone] Rapid Plasma Reagin (RPR) Test With Reflex to Quantitative Performing [facility] LBHIV Ab/p24 Ag with Reflex Reviewed date:07/24/2025 12:54:27 PM Interpretation: Performing Lab: Notes/Report: [facility] ,HIV Ab/p24 Ag ScreenNon ReactiveNon Reactive HIV Negative [address] [place], [place] [phone] Performed at: [facility] detected. There is no laboratory evidence of HIV infection. Shell Grader: Clive Padilla PhD, Phone: [phone] HIV-1/HIV-2 antibodies and HIV-1 p24 antigen were NOT Performing Lab:see note - [facility] Reason For Referral No Information Social History Tobacco Use: Social History Observation Description Date Details (start date - stop date) Never Smoker NA - NA Tobacco Control (Standard) Question Answer Notes Tobacco use: Nonsmoker AUDIT-C (Standard) Question Answer Notes Did you have a drink containing alcohol in the p ast year? No Xhzwxv0DrsgpedkigvdalTpdzoqex Vital Signs Blood pressure diastolic 72 mm Hg 02/15/2025 Crztbt07 in02/15/2025lood pressure thlhycic132 mm Hg02/15/20251167Ayuwsm754.4 lbs 02/15/2025BMI20.43 kg/m202/15/2025 Encounters Encounter Location Date Provider Diagnosis [address] [place] [address] 02/15/2025 Shana Cee [facility] examination Z00.[address] [place] [address] 04/27/2025 [address] [place] [address] 04/27/2025Paniels CeeAbnormal blood chemistry R79.[address] [place] [address]/26/[address] [address]/10/2025 Shana Cee Assessments Encounter Date Diagnosis (ICD Code) Assessment [...] Insured Coverage Start Date Coverage End Date MMO [address] [facility], [facility] [id number] TIMI OSWALDelf - patient is the insured Medical (General) History Hospitalization History Reason Date(Month/Year) Child
--- OUTSIDE RECORDS SUMMARY | 2025-08-25 21:10 | XMS_ITS | Clinical Summary ---
Author Organization [facility] Address [address] [place] [address] Care Team Providers Care Director Inpatient Headache Program Name Role Phone Jordan Lomax MD Primary Care Provider [phone] Allergies No known active allergies Medications MedicationSigDispense QuantityRefillsLast FilledStart DateEnd DateStatus MV-Min-Fe Fum-FA-DHA ( 1 PO) Take by mouth.Active Active Problems ProblemNoted DateDiagnosed Date11 weeks gestation of ([facility]) 07/28/2025First trimester ([facility])2 weeks gestation of ([facility])07/28/2025Second trimester ([facility])07/28/2025 Estimated Date of JconewqqKgjadibeCih92/30/2026ased on last menstrual period of 05/01/2025 Encounters DateTypeDepartmentCare SmbdBqdtlzsdhhl29/17/2025 3:00 [place] [address] Mehdi Mclain DO Well woman exam with routine gynecological exam; 16 weeks gestation of ([facility]); Exposure to STD; Second trimester ([facility]); Need for maternal serum alpha-protein (MSAFP) screening ([facility]); Screening, , for anatomic survey ([facility])08/25/2025amboo [place] [address] Mehdi Mclain DO 08/24/20250090Vkhfzs31/19/2025 2:40 PM ESTRoutine [facility] [address] [place] [address] Mehdi Mclain, DO 12 weeks gestation of ([facility]); Second trimester ([facility])5Bamboo flowsheet [facility] [address] [place] [address] [phone] Mehdi Mclain, DO 5Clinisync Result Encounter NOMS External Department Unsolicited Mehdi Mclain, DO 07/15/2025 9:40 AM ESTRoutine [facility] [address] [place] [address] Mehdi Mclain, DO First trimester ([facility]); 10 weeks gestation of ([facility])5Bamboo flowsheet [facility] [address] [place] [address] Mehdi Mclain, DO 07/14/2025Telephone [facility] [address] [place] [address] Mehdi Mclain, DO 07/13/2025Telephone [facility] [address] [place] [address] Mehdi Mclain, DO 07/13/2025Telephone [facility] [address] [place] [address] Mehdi Mclain, DO 06/25/2025 10:30 AM EDTInitial [facility] [address] [place] [address] GA: 7w6d1 10:00 AM EDTAncillary Procedure [facility] [address] [place] [address] Missed menses; Positive urine test ([facility])06/20/2025Travelfrom Last 3 Months Social History Tobacco UseTypesPacks/DayYears UsedDateSmoking Tobacco: Never Assessed Estimated Date of IgxpojdeTxydsnwqCkx68/30/2026ased on last menstrual period of 05/01/2025Sex and Gender InformationValueDate RecordedSex Assigned at BirthNot on fileLegal YwsFujjed27/28/2023 2:17 PM EDTGender IdentityNot on fileSexual OrientationNot on file Last Filed Vital Signs Vital SignReadingTime TakenCommentsBlood Xlguiizi815/6808/25/2025 3:51 PM EST Pulse--Temperature--Respiratory Rate--Oxygen Saturation--Inhaled Oxygen Concentration--Uewnum33 kg (150 lb)08/25/2025 3:51 PM DBTCabnmg966.7 cm (5' 8 ) 03/29/2023 11:04 AM EDTBody Mass Index22.8103/29/2023 11:04 AM EDT Plan of Treatment DateTypeDepartmentCare Team (Latest Contact Info)Afyhzwoplys78/15/2026 8:30 AM ESTAncillary Procedure [facility] [address] [place] [address] 09/23/2025 9:30 AM ESTRoutine [facility] [address] [place] [address] Emeli Chandler, ALIYA [address] [place] [phone] Procedures Procedure NamePriorityDate/TimeAssociated DiagnosisCommentsPOCT URINALYSIS IHKNZUFHFumjayk80/17/2025 3:52 PM EST 16 weeks gestation of ([facility]) POCT URINALYSIS XMROWERFEmghscp02/19/2025 3:00 PM EST 12 weeks gestation of ([facility]) Second trimester ([facility]) HBSAG DLCQMTScatvlg17/13/2025 4:14 PM EST RAPID PLASMA REAGIN, TAYWDGiotnnz90/13/2025 4:14 PM EST HCV ANTIBODY RFX TO QUANT WUWOaxjadx89/13/2025 4:14 PM EST ALL RUBELLA IGG KUPsrprbb45/13/2025 4:14 PM EST HIV AB/P24 AG WITH TEFFHQHqyxczp40/13/2025 4:14 PM EST ALL TYPE AND MVZUMHCngbqtv78/13/2025 4:14 PM EST MLR HEMOGLOBIN B2BVxpflfk09/13/2025 4:14 PM EST ALL CBC WITH AUTO QGUOBdvtbza80/13/2025 4:14 PM EST URINE CULTURE, JPOVLGDZzkgiuv53/13/2025 4:07 PM EST [facility] DRUG SCREEN RAPID (URINE)Fchnore8307/22/2025 4:00 PM EST POCT URINALYSIS MYOYFGQOTtztums13/06/2025 9:51 AM EST First trimester ([facility]) POCT , MWSDNTuwusnr17/17/2025 11:02 AM EDT Missed menses POCT URINALYSIS YZLRLPSTBwdqhov62/17/2025 11:01 AM EDT Missed menses US OB PYTRTEZOZURLXwtzoej75/17/2025 10:23 AM EDT Missed menses Positive urine test ([facility]) from Last 3 Months Results * POCT urinalysis dipstick manually resulted (08/25/2025 3:52 PM EST) Only the most recent of4 resultswithin the time period is included. ComponentValueRef RangeTest MethodAnalysis TimePerformed AtPathologist Signature Color, UAYellowClarity, UAClearGlucose, UANegativeNegative - 2000(110) ++++ mg/dLBilirubin, UANegativeNegative - 4(70) +++ mg/dLKetones, UANegativeNegative - 160(16) ++++ mg/dLSpec Grav, UA1.0201 - 1.03Blood, UANegativeNegative - 50 Sandor/mcLpH, UA6.05 - 9Protein, UANegativeNegative - 2000(20) ++++ mg/dL Urobilinogen, UA1.00.2 - 12 mg/dLLeukocytes, UANegativeNegative - 500+++ David/mcL Nitrite, UANegativeNegative - PositiveSpecimen (Source)Anatomical Location / LateralityCollection Method / VolumeCollection TimeReceived RdprUzzqr62/17/2025 3:52 PM EST Narrative Authorizing ProviderResult TypeResult StatusCorey Rayne DOPOINT OF CARE TEST ENTER/EDIT ORDERABLESFinal Result * HBSAG SCREEN (07/22/2025 4:14 PM EST)ComponentValueRef RangeTest Method Analysis TimePerformed AtPathologist SignatureHBSAG SCREENNegativeNegativeTBH Comment: Performed at: ??CB - [facility] [address] ??[id number] Smash Piecer: Clive Padilla PhD, Phone: ??[phone] Specimen (Source)Anatomical Location / LateralityCollection Method / Volume Collection TimeReceived Time07/22/2025 4:14 PM EST07/22/2025 4:24 PM EST Narrative CLINISYNC - 07/24/2025 1:09 PM EST Authorizing ProviderResult TypeResult StatusCorey Rayne DOLAB BLOOD ORDERABLES Final ResultPerforming OrganizationAddressCity/State/ZIP CodePhone Number CLINISYNC [facility] * RAPID PLASMA REAGIN, QUANT (07/22/2025 4:14 PM EST)ComponentValueRef RangeTest MethodAnalysis TimePerformed AtPathologist SignatureRAPID PLASMA REAGIN, QUANT Non ReactiveNonRea<1:1 titerTBHComment: Please Note: This test does not meet current guidelines for screening and diagnosis of syphilis. This test is intended for following treatment response in patients being treated for syphilis infection. To screen for syphilis infection, a reflex cascade that includes both RPR and a treponema-specific assay should be utilized, such as Treponema pallidum (Syphilis) Screening [place] (392983) or Rapid Plasma Reagin (RPR) Test With Reflex to Quantitative RPR and Confirmatory Treponema pallidum Antibodies (246595). Performed at: ??[address] ??[id number] Smash Piecer: Clive Padilla PhD, Phone: ??[phone] Specimen (Source)Anatomical Location / LateralityCollection Method / Volume Collection TimeReceived Time07/22/2025 4:14 PM EST07/22/2025 4:24 PM EST Narrative CLINISYNM - 07/24/2025 1:09 PM EST Authorizing ProviderResult TypeResult StatusCorey Rayne DOLAB BLOOD ORDERABLES Final ResultPerforming OrganizationAddressCity/State/ZIP CodePhone Number [facility] * HIV AB/P24 AG WITH REFLEX (07/22/2025 4:14 PM EST)ComponentValueRef RangeTest MethodAnalysis TimePerformed AtPathologist SignatureHIV AB/P24 AG SCREENNon ReactiveNon ReactiveTBHComment: HIV-1/HIV-2 antibodies and HIV-1 p24 antigen were NOT detected. There is no laboratory evidence of HIV infection. HIV Negative Performed at: ??[address] ??[id number] Smash Piecer: Clive Padilla PhD, Phone: ??[phone] Specimen (Source)Anatomical Location / LateralityCollection Method / Volume Collection TimeReceived Time07/22/2025 4:14 PM EST07/22/2025 4:24 PM EST Narrative CLINISYNC - 07/24/2025 4:07 AM EST Authorizing ProviderResult TypeResult StatusCorey Rayne DOLAB BLOOD ORDERABLES Final ResultPerforming OrganizationAddressty/State/ZIP CodePhone Number [facility] * HCV ANTIBODY RFX TO QUANT PCR (07/22/2025 4:14 PM EST)ComponentValueRef Range Test MethodAnalysis TimePerformed AtPathologist SignatureHCV ABNon ReactiveNon ReactiveTBHINTERPRETATION:Comment.TBHComment: Not infected with HCV unless early or acute infection is suspected (which may be delayed in an immunocompromised individual), or other evidence exists to indicate HCV infection. Performed at: ?? - [facility] [address] ??[id number] Smash Piecer: Clive Padilla PhD, Phone: ??[phone] Specimen (Source)Anatomical Location / LateralityCollection Method / Volume Collection TimeReceived Time07/22/2025 4:14 PM EST07/22/2025 4:24 PM EST Narrative CLINISYNC - 07/24/2025 6:08 AM EST Authorizing ProviderResult TypeResult StatusCorey Rayne DOLAB BLOOD ORDERABLES Final ResultPerforming OrganizationAddressCity/State/ZIP CodePhone Number [facility] * MLR HEMOGLOBIN A1C (07/22/2025 4:14 PM EST)ComponentValueRef RangeTest Method Analysis TimePerformed AtPathologist SignatureGLYCOHEMOGLOBIN A1C5.44.5 - 6.2 %TBHComment: ADA RECOMMENDED LIMIT 4.0 - 6.0 ADA THERAPEUTIC TARGET < 7.0 ACTION SUGGESTED > 7.0 ESTIMATED AVERAGE YXJMGUG006su/dLTBHSpecimen (Source)Anatomical Location / LateralityCollection Method / VolumeCollection TimeReceived Time07/22/2025 4:14 PM EST07/22/2025 4:24 PM EST Narrative CLINISYNC - 07/22/2025 5:44 PM EST Authorizing ProviderResult TypeResult StatusCorey Rayne DOCLINISYNCFinal Result Performing OrganizationAddressCity/State/ZIP CodePhone Number [facility] * ALL TYPE AND SCREEN (07/22/2025 4:14 PM EST)ComponentValueRef RangeTest Method Analysis TimePerformed AtPathologist SignatureBLOOD TYPEA PositiveTBHANTIBODY SCREENNEGATIVETBHSpecimen (Source)Anatomical Location / LateralityCollection Method / VolumeCollection TimeReceived Time07/22/2025 4:14 PM EST07/22/2025 4:24 PM EST Narrative CLINISYNC - 07/22/2025 6:10 PM EST [facility] , ?? Authorizing ProviderResult TypeResult StatusCorey Rayne DOCLINISYNCFinal Result Performing OrganizationAddressCity/State/ZIP CodePhone Number [facility] * ALL RUBELLA IGG AB (07/22/2025 4:14 PM EST)ComponentValueRef RangeTest Method Analysis TimePerformed AtPathologist SignatureRUBELLA ANTIBODIES, IGG3.13 Immune >0.99 indexTBHComment: Non-immune <0.90 ?Equivocal ??0.90 - 0.99 Immune >0.99 Performed at: ?? - [facility] ??[id number] Smash Piecer: Clive Padilla PhD, Phone: ??[phone] Specimen (Source)Anatomical Location / LateralityCollection Method / Volume Collection TimeReceived Time07/22/2025 4:14 PM EST07/22/2025 4:24 PM EST Narrative CLINISYNC - 07/24/2025 6:08 AM EST Authorizing ProviderResult TypeResult StatusCorey Rayne DOCLINISYNCFinal Result Performing OrganizationAddressty/State/[facility] CodePhone Number [facility] * (ABNORMAL) ALL CBC WITH AUTO DIFF (07/22/2025 4:14 PM EST)ComponentValueRef RangeTest MethodAnalysis TimePerformed AtPathologist SignatureTBH WBC10.44.0 - 11.0 10 3/uLTBHTBH RBC4.234.20 - 5.40 10 6/uLTBHTBH HGB13.112.0 - 16.0 g/dLTBH TBH HCT37.736.0 - 48.0 %TBHTBH MCV89.181.0 - 99.0 fLTBHTBH MCH31.026.7 - 34.0 pgTBHTBH MCHC34.729.9 - 35.2 g/dLTBHTBH RDW12.311.0 - 15.0 %TBHTBH WTR100921 - 450 10 3/uLTBHTBH MPV9.3(L)9.5 - 13.5 fLTBHNEUTROPHILS PERCENT AUTO65.443.0 - 75.0 %TBHLYMPHOCYTES PERCENT AUTO23.120.5 - 60.0 %TBHMONOCYTES PERCENT AUTO4.9 1.7 - 12.0 %TBHTBH EO %6.00.9 - 7.0 %TBHBASOPHILS PERCENT AUTO0.30.2 - 2.0 % TBHIMMATURE GRANULOCYTES PCT AUTO0.30.0 - 0.5 %TBHNEUTROPHILS ABSOLUTE AUTO6.8 (H)1.4 - 6.5 10 3/uLTBHLYMPHOCYTES ABSOLUTE AUTO2.41.2 - 3.8 10 3/uLTBH MONOCYTES ABSOLUTE AUTO0.50.3 - 0.8 10 3/uLTBHTBH EO #0.60.0 - 0.7 10 3/uLTBH BASOPHILS ABSOLUTE AUTO0.00.0 - 0.1 10 3/uLTBHIMMATURE GRANULOCYTES ABS AUTO 0.030.00 - 0.03 10 3/uLTBHSpecimen (Source)Anatomical Location / Laterality Collection Method / VolumeCollection TimeReceived Time07/22/2025 4:14 PM EST 07/22/2025 4:24 PM EST Narrative CLINISYNC - 07/22/2025 4:56 PM EST Authorizing ProviderResult TypeResult StatusCorey Rayne DOCLINISYNCFinal Result Performing OrganizationAddressCity/State/ZIP CodePhone Number [facility] * URINE CULTURE, ROUTINE (07/22/2025 4:07 PM EST)ComponentValueRef RangeTest MethodAnalysis TimePerformed AtPathologist SignatureURINE CULTURE, ROUTINE ??Urine Culture, Routine TBHURINE CULTURE, ROUTINESpecimen has been received and testing has been initiated.TBHURINE CULTURE, ROUTINEOrganism: Lactobacillus species :TBHURINE CULTURE, ROUTINESusceptibility not normally performed on this organism.TBHURINE CULTURE, XNGBTZQ21,000-100,000 colony forming units per mLTBHURINE CULTURE, ROUTINELactobacillus speciesTBHURINE CULTURE, ROUTINE ??O:LACTSP Isolated TBHURINE CULTURE, ROUTINEPerformed at: [facility]TB[facility], [id number] [place], [place] [id number] CULTURE, ROUTINELab Director: Clive Padilla PhD, Phone: [phone] (Source)Anatomical Location / LateralityCollection Method / VolumeCollection TimeReceived Time 07/22/2025 4:07 PM EST07/22/2025 4:51 PM EST Narrative CLINISYNC - 07/27/2025 4:09 PM EST Authorizing ProviderResult TypeResult StatusCorey Rayne DOLAB BLOOD ORDERABLES Final ResultPerforming OrganizationAddressCity/State/ZIP CodePhone Number [facility] * TBH DRUG SCREEN RAPID (URINE) (07/22/2025 4:00 PM EST)ComponentValueRef Range Test MethodAnalysis TimePerformed AtPathologist SignatureCANNABINOID SCREEN URINENEGATIVENEGATIVETBHPHENCYCLIDINE SCREEN URINENEGATIVENEGATIVETBHCOCAINE SCREEN URINENEGATIVENEGATIVETBHMETHAMPHETAMINES SCREEN URINENEGATIVENEGATIVE TBHOPIATE SCREEN URINENEGATIVENEGATIVETBHAMPHETAMINE SCREEN URINENEGATIVE NEGATIVETBHBENZODIAZEPINES SCREEN URINENEGATIVENEGATIVETBHTRICYCLIC ANTIDEPRESSANT URINENEGATIVENEGATIVETBHMETHADONE SCREEN URINENEGATIVENEGATIVE TBHBARBITURATES SCREEN URINENEGATIVENEGATIVETBHOXYCODONE SCREEN URINENEGATIVE NEGATIVETBHBUPRENORPHINE SCREEN URINENEGATIVENEGATIVETBHComment: DRUG CLASS TEST SYSTEM CUT-OFF CONCENTRATIONS ARE FOLLOWS: AMP (Amphetamine): 500 ng/mL BAR (Barbiturates): 200 ng/mL BZO (Benzodiazepines): 150 ng/mL BUP (Buprenorphine): 10 ng/mL AWA (Cocaine): 150 ng/mL mAMP (Methamphetamine): 500 ng/mL MTD (Methadone): 200 ng/mL OPI (Opiates): 100 ng/mL OXY (Oxycodone): 100 ng/mL PCP (Phencyclidine): 25 ng/mL THC (Cannabinoids): 50 ng/mL TCA (Trycyclic Antidepressants): 300 ng/mL Specimen (Source)Anatomical Location / LateralityCollection Method / Volume Collection TimeReceived Time07/22/2025 4:00 PM EST07/22/2025 4:24 PM EST Narrative CLINISYNC - 07/22/2025 5:15 PM EST Authorizing ProviderResult TypeResult StatusCorey Rayne DOCLINISYNCFinal Result Performing OrganizationAddressCity/State/ZIP CodePhone Number [facility] * (ABNORMAL) POCT , urine manually resulted [...] Parekh MD Authorizing ProviderResult TypeResult StatusCorey Rayne DOIMG OB US PROCEDURES Final Result from Last 3 Months Insurance Care Teams Team MemberRelationshipSpecialtyStart DateEnd Date Jordan Lomax MD [address] [place], [place] [phone] PCP - GeneralInternal Medicine03/06/23
--- OUTSIDE RECORDS SUMMARY | 2025-08-25 21:11 | XMS_ITS | Encounter Summary ---
Author Organization [facility] Address [address] [place] [address] Care Team Providers Care Communications Engineer Name Role Phone Jordan Lomax MD Primary Care Provider [phone] Encounter Details DateTypeDepartmentCare Team (Latest Contact Info)Adjrmxpicwp17/16/2025Travel Social History Tobacco UseTypesPacks/DayYears UsedDateSmoking Tobacco: Never Assessed Estimated Date of VubzwytxAtkwdcdmYva06/30/2026Based on last menstrual period of 05/01/2025Sex and Gender InformationValueDate RecordedSex Assigned at BirthNot on fileLegal IdxCxvbqs27/28/2023 2:17 PM EDTGender IdentityNot on fileSexual OrientationNot on filedocumented as of this encounter Plan of Treatment DateTypeDepartmentCare Team (Latest Contact Info)Hpcmjphhzgm83/15/2026 8:30 AM ESTAncillary Procedure [facility] [address] [place] [address] 09/23/2025 9:30 AM ESTRoutine [facility] [address] [place] [address] Emeli Chandler NP [address] [place] [address] documented as of this encounter Visit Diagnoses Not on filedocumented in this encounter Care Teams Team MemberRelationshipSpecialtyStart DateEnd Date Jordan Lomax MD [address] [place] [address] PCP - GeneralInternal Medicine03/06/23documented as of this encounter
--- OUTSIDE RECORDS SUMMARY | 2025-08-25 21:11 | XMS_ITS | Encounter Summary ---
Author Organization [facility] Address [address] [place] [address] Care Team Providers Care Maintainer Plant Name Role Phone Jordan Lomax MD Primary Care Provider [phone] Encounter Details DateTypeDepartmentCare Team (Latest Contact Info)Ovaowxedogi05/17/2025amboo flowsheet [facility] [address] [place] [address] Mehdi Mclain DO [address] [place], [facility] Social History Tobacco UseTypesPacks/DayYears UsedDateSmoking Tobacco: Never Assessed Estimated Date of EkjezqccYdcefolmTkx87/30/2026Based on last menstrual period of 05/01/2025Sex and Gender InformationValueDate RecordedSex Assigned at BirthNot on fileLegal TkdUflupe70/28/2023 2:17 PM EDTGender IdentityNot on fileSexual OrientationNot on filedocumented as of this encounter Plan of Treatment DateTypeDepartoaklawn hospitalCare Team (Latest Contact Info)Ccujnwwkjgx62/15/2026 8:30 AM ESTAncillary Procedure [facility] [address] [place] [address] 09/23/2025 9:30 AM ESTRoutine [facility] [address] [place] [address] Emeli Chandler, ALIYA [address] [place] [address] documented as of this encounter Visit Diagnoses Not on filedocumented in this encounter Care Teams Team MemberRelationshipSpecialtyStart DateEnd Date Jordan Lomax MD [address] [place] [address] PCP - GeneralInternal Medicine03/06/23documented as of this encounter
--- OUTSIDE RECORDS SUMMARY | 2025-08-25 21:11 | XMS_ITS | Clinical Summary ---
Author Organization [facility] Address [address], [address] [place] [address] Care Team Providers Care Supervisor Felting Name Role Phone Jordan Lomax MD Primary Care Provider [phone] Allergies No known active allergies Medications No [...] and heating?Not hard at all12/11/2022HQ-2AnswerDate RecordedPHQ-9 Total Pqurr403Exercise Vital SignAnswerDate RecordedOn average, how many days [...] Last Filed Vital Signs Vital SignReadingTime TakenCommentsBlood Srbwmqfe735/7004 11:38 AM EDT Sekzp4736 11:38 AM EDTTemperature--Respiratory Vrka865712/11/2022 11:38 AM EDTOxygen Tobszkymsa97%12/11/2022 11:38 AM EDTInhaled Oxygen Concentration-- Xwawld84.9 kg (132 lb)12/11/2022 11:38 AM IBKGpeowg076.7 cm (5' 8 )12/11/2022 11:38 AM EDTBody Mass Index20.0712/11/2022 11:38 AM EDT Plan of Treatment Health MaintenanceDue DateLast DoneCommentsDepression Rteadf7810/29/2010Varicella vaccine (1 of 2 - 13+ 2-dose series)2011HIV oghyjz2310/29/2013HPV vaccine (1 - 3-dose series)2013Hepatitis C rtrwah9110/29/2016DTaP/Tdap/Td vaccine (1 - Tdap)2017Hepatitis B vaccine (1 [...] Recently Relevant to Health Maintenance Results * LIGHTING TECHNICIAN Cytology (12/11/2022 8:26 AM EDT)ComponentValueRef RangeTest Method Analysis TimePerformed AtPathologist SignatureCytology ReportINTERPRETATION Cervical material, (ThinPrep vial, Imaging-assisted review): Specimen Adequacy: ? Satisfactory for evaluation. ? - Endocervical/transformation zone component present. Descriptive Diagnosis: ? Negative for intraepithelial lesion or malignancy. ?? Staking Technician: ?? EY SS4 LEVI Nathan(ASCP) Electronically Signed Out ss4/12/21/2022 Source: A: Cervical material, (ThinPrep vial, Imaging-assisted review) Clinical History Z01.419 Routine vocal music teacher exam without abnormal findings High risk HPV DNA testing is requested if the diagnosis is abnormal GYNECOLOGIC CYTOLOGY REPORT Patient Name: REINA OSWALD [facility] Rec: [id number] Path Number: [id number] [facility] ??LABORATORIES CONSULTING PATHOLOGISTS [facility] [address] [place] [address]. ??[place], [place] [address] [facility] LABORATORIESSpecimen (Source)Anatomical Location / LateralityCollection Method / VolumeCollection TimeReceived TimeCERVICAL DJWTCGZG43/04/2023 8:26 AM EDT12/13/2022 8:26 AM EDT Narrative Authorizing ProviderResult TypeResult StatusWejanet Villalobos MDPATHOLOGY/CYTOLOGY ORDERABLESFinal ResultPerforming OrganizationAddressCity/State/ZIP CodePhone Number [facility] [address] [place] [address], [facility] [phone] [facility] [address] [place] [address] from Last 3 Months or Most Recently Relevant to Health Maintenance Insurance Care Teams Team MemberRelationshipSpecialtyStart DateEnd Date Jordan Lomax MD [address] [place], [place] [phone] PCP - GeneralInternal Medicine11/19/22
== END 2025-08-25 21:07 | disposition home or self-care (01) ==
LOC: LAB 21:06
PROVIDERS: PCP Family Medicine; Visit Provider Obstetrics & Gynecology
DX: Z01.419 Encounter for gynecological examination (general) (routine) without abnormal findings (principal)
CPT/HCPCS: 88175